=== PATIENT | male | born 1940 | race Caucasian/White ===

== ENCOUNTER → 2017-09-09 | Outpatient (CLI) | payer OTHER ==
[~2017-09-09] MED LIST: ALBUAER2 INH; ASPEC81 PO; CLS20 PO; FLM4 PO; FLNIN NAE; FLUT1INH INH; GATI1SOL2 TOP; KETOROLAC OPTH TOP; MCR/40125 PO; MELO15TA10 PO; OMEG10002 PO; OXGN; PRLSR20 PO; ROSU5TAB PO; SNG10 PO
--- NOTE | 2017-09-11 07:49 | PULMONARY FUNCTION TEST ---
SPIROMETRY: Moderate obstructive ventilatory disease. BRONCHODILATOR RESPONSE: No significant response. LUNG VOLUMES: Within normal limits. DIFFUSION CAPACITY: Mildly reduced but corrects off alveolar volume. INTERPRETATION: Mild obstructive ventilatory disease MTDD
== END | disposition home or self-care (01) ==
LOC: C.RC 11:16
PROVIDERS: ATTEND Internal Medicine Critical Care Medicine
DX: M41.9 Scoliosis, unspecified (principal)

== ENCOUNTER 2022-06-21 16:55 | Inpatient (IN) ==
--- NOTE | 2022-06-21 18:24 | XRay Report ---
SINGLE VIEW CHEST CLINICAL HISTORY: Cough and dyspnea FINDINGS: 2 AP, portable, upright chest radiographs are compared to study dated 10/23/2010 and correla pamela with chest CT dated 08/12/2018. The cardiomediastinal silhouette is unremarkable noting atheroscle rotic calcification of the thoracic aorta. Bibasilar opacities likely represent scarring/atelectasis. The lungs and pleural spaces are otherwise clear. No pneumothorax is seen. The skeletal structures a re osteopenic. There is severe thoracic scoliosis which significantly distorts the thoracic cage. The bony structures are grossly intact. IMPRESSION: Bibasilar opacities likely represent scarring/atelectasis. Clinical correlation will be r equired. ACT 112: Negative or not required by law. Electronically signed by: Epi Bautista M.D. 06/21/2022 6:23 PM
[2022-06-21 18:44] LABS: Influenza B virus by PCR Negative (Neg); RSV by PCR Negative (Neg); SARS CoV2 RNA(COVID-19) Ceph NEGATIVE (Negative)
[2022-06-21 18:48] LABS: Influenza A virus by PCR Positive (Neg)
[2022-06-21 18:51] LABS: Hematocrit (blood only) 37.8 % (40.1-51.0); Hemoglobin 12.9 g/dl (14.0-18.0); White Blood Count 9.36 K/ul (4.8-10.8)
[2022-06-21 19:18] LABS: Alanine Aminotransferase 28 U/L (7-52); Albumin Globulin Ratio 1.9 (0.9-2); Albumin Level 4.3 gm/dl (3.4-5.0); Alkaline Phosphatase 68 U/L (34-104); Anion Gap 6 (3-11); Aspartate Aminotransferase 37 U/L (13-39); BUN Creatinine Ratio 29.7 (10-20); Bilirubin,Total 0.8 mg/dl (0.2-1.0); Blood Urea Nitrogen 11 mg/dl (6-23); Calcium 8.6 mg/dl (8.5-10.1); Carbon Dioxide 27 mmol/L (21-32); Chloride 96 mmol/L (98-107); Est GFR (African American) 134.2 ml/min; Est GFR (Non-African American) 115.8 ml/min; Globulin 2.3 gm/dl (2.5-4.0); Glucose 121 mg/dl (70-99(Fasting)); Magnesium 1.9 mg/dl (1.7-2.4); Potassium 3.8 mmol/L (3.5-5.1); Sodium 129 mmol/L (136-145); Total Protein 6.6 gm/dl (6.0-8.3)
[2022-06-21 19:28] LABS: Basophils # (auto) 0.01 K/uL (0-0.2); Basophils % (auto) 0.1 %; Immature Granulocytes # (auto) 0.04 K/uL (0.00-0.02); Immature Granulocytes % (auto) 0.4 %; Lymphocytes # (auto) 0.28 K/uL (1.2-3.4); Mean Corpuscular Hemoglobin 33.5 pg (25.0-34.0); Mean Corpuscular Hgb Conc 34.1 g/dL (32.0-36.0); Mean Corpuscular Volume 98.2 fL (80.0-100.0); Mean Platelet Volume 9.7 fL (9.4-12.4); Monocytes # (auto) 0.24 K/uL (0.24-0.82); Monocytes % (auto) 2.6 %; Neutrophils # (auto) 8.79 K/uL (1.4-6.5); Neutrophils % (auto) 93.9 %; Platelet Count 98 K/uL (130-400); Platelet Estimate Decreased (Normal); RDW Standard Deviation 64.3 fL (36.4-46.3); Red Blood Count 3.85 M/uL (4.63-6.08)
[2022-06-21 20:14] LABS: INR 1.1 (0.9-1.1); Partial Thromboplastin Time 28.8 Seconds (21.0-31.0); Prothrombin Time 11.8 Seconds (9.0-12.0)
--- NOTE | 2022-06-21 21:15 | Emergency Department Note ---
Impression & Plan Influenza A, SOB (shortness of breath) ED Provider Note INFORMANT: Patient and ED PROVIDER(S): Uli Alvarado MD CHIEF COMPLAINT: Shortness of breath PLAN: Disposition: Admitted Condition: Good Outpatient prescription management: None Referral: None MEDICAL DECISION MAKING: Patient presented because of worsening shortness of breath. Testing was performed and he was found to have influenza. Patient has mild anemia on CBC and mild thrombocytopenia. His chemistry panel was unremarkable. Chest x-ray was negative for any focal infiltrate. He does have significant scoliosis and restrictive lung disease. He was treated with steroids and bronchodilator. Due to his age, illness, and restrictive lung issues he will need further management in the hospital. Consultation was made with hospital service. Patient was evaluated in the ER admitted for further management. Triage Nursing notes reviewed and agree them. Vital Signs: reviewed and remarkable for no significant abnormalities Viral syndrome differential diagnosis: Reactive airway disease, pneumonia, pneumothorax, COPD, CHF, infections, cardiac ischemia, pulmonary embolism, musculoskeletal, gastrointestinal, as well as other pathologies. Diagnostics interpreted by me: EC Lead ECG performed and revealed Normal sinus rhythm at 97, normal [place], QRS normal. No elevation or depression. No PACs or PVCs Cardiac Monitoring: Cardiac monitoring ordered by me: The patient was placed on continuous cardiac monitoring and observed. It revealed a normal sinus rhythm at 91 beats per minute without ectopy or evidence of dysrhythmia. Imaging studies: Chest x-ray as noted below HPI: The patient is a 82 year old male who presents to the Emergency Room with complaints of SOB. This started 3 days ago and is worsening. The patient also notes the following associated symptoms, flu like symptoms, cough ,fevers, congestion, weakness, scratchy throat. The patient has been prescribed prednisone and zithromax for relieving factors. Current pain is rated as 0/10. Pt denies LOC, headache, chills, diaphoresis, visual changes, neck pain, chest pain, nausea, vomiting, abdominal pain, back pain, melena, hematochezia, urinary symptoms, numbness, lymphadenopathy, rash, or other complaints. ROS: See above HPI for pertinent positives & negatives. A total of 10 systems reviewed and were otherwise negative. PAST MEDICAL HISTORY:See Below , restrictive lung disease PAST SURGICAL HISTORY:See Below, FAMILY HISTORY:See Below SOCIAL HISTORY:See Below, HOME MEDICATIONS:See Below ALLERGIES:See Below VITALS:See Below PHYSICAL EXAMINATION: GENERAL: Awake, alert, mildly ill appearing, no distress HEAD: Normocephalic, atraumatic. No edema. EYES: Normal conjunctiva. Sclera non-icteric. EARS: Right TM normal. Left TM normal. NOSE: Mild congestion. OROPHARYNX: Lips, tongue, and mucosa unremarkable. No erythema or exudate. NECK: Inspection normal. Non-tender. Supple. No nuchal rigidity. FROM. No adenopathy. Negative jolt accentuation test. RESPIRATORY: CTA bilaterally. No wheezes rales or rhonchi. Normal respiratory effort. CARDIAC: Borderline tachycardic rate. Normal rhythm. No murmurs. No rubs. GI: Soft, non distended. No tenderness to palpation. NEURO: Normal sensorium. Normal speech. SKIN: No rash or jaundice noted. Uli Alvarado MD Past Med/Surg History Medical History Severe scoliosis Social History Smoking Status: Former smoker Second Hand Exposure: Yes; Do You Dip or Chew Tobacco: No; Tobacco Cessation Education Requested by Patient: No Hx Alcohol Use: Yes Alcohol type: wine Hx Substance Use: No Preferred Language: Taiwanese Communication Ability: Effective Contract Management Specialist Required: No Beliefs That Will Affect Care: None Current Living Situation: Spouse Other Information That Helps Us Care for You: No Feels Safe at Home: Yes Safety Concerns: Feels Safe At This Time Assistive Devices: Cane, Glasses and Oxygen - at Night Allergies Allergies Allergy/AdvReac Type Severity Reaction Status Date / Time Gadolinium-Containing AdvReac Unknown Verified 06/22/22 00:04 [facility] Meds Home Medications Medication Instructions Recorded Confirmed Prednisone Taper 10 mg PO DIRECTED 06/22/22 06/22/22 albuterol sulfate 2.5 mg/3 mL 2.5 mg inhalation DIRECTED PRN 06/22/22 06/22/22 (0.083 %) solution for nebulization Shortness Of Breath Or Wheezing albuterol sulfate 90 mcg/actuation 2 puff inhalation Q4 PRN 06/22/22 06/22/22 aerosol inhaler .cough/wheezing amlodipine 5 mg tablet 2.5 mg PO QPM 06/22/22 06/22/22 aspirin 81 mg chewable tablet 81 mg PO DAILY 06/22/22 06/22/22 azithromycin 250 mg tablet 250 mg PO DAILY 06/22/22 06/22/22 dutasteride 0.5 mg capsule 0.5 mg PO DAILY 06/22/22 06/22/22 fluticasone furoate 100 1 inh inhalation DAILY 06/22/22 06/22/22 mcg-vilanterol 25 mcg/dose inhalation powder (Breo Ellipta) fluticasone propionate 50 2 spray intranasal DAILY 06/22/22 06/22/22 mcg/actuation nasal spray,suspension (Flonase Allergy Relief) hydrochlorothiazide 12.5 mg tablet 12.5 mg PO 3XWK 06/22/22 06/22/22 latanoprost 0.005 % eye drops 1 drp OPL HS 06/22/22 06/22/22 meloxicam 15 mg tablet 15 mg PO QPM 06/22/22 06/22/22 montelukast 10 mg tablet 10 mg PO PM 06/22/22 06/22/22 rosuvastatin 5 mg tablet 5 mg PO QPM 06/22/22 06/22/22 tadalafil 5 mg tablet 5 mg PO DAILY 06/22/22 06/22/22 telmisartan 40 mg tablet 40 mg PO DAILY 06/22/22 06/22/22 terazosin 2 mg capsule 2 mg PO HS 06/22/22 06/22/22 Results & Data (ED) Vital Signs Vital Signs - 24 hr 06/21/22 17:06 Temperature 37.2 C Temperature Source Temporal Artery Scan Pulse Rate 103 H Respiratory Rate 20 Respiratory Depth Normal Blood Pressure 144/79 H Blood Pressure Mean 100 Blood Pressure Position Sitting Pulse Oximetry 90 Oxygen Delivery Method Room Air Sepsis Recent Fever Within 48 Hours No Sepsis New/Unexplained Change in Mental Status No Sepsis Action Taken by Nursing No Action Required Laboratory Data Result diagrams: 06/22/22 05:37 06/22/22 05:37 Lab Results 06/21/22 06/21/22 06/21/22 Range/Units 17:10 18:30 18:30 WBC 9.36 (4.8-10.8) K/ul RBC 3.85 L (4.63-6.08) M/uL Hgb 12.9 L (14.0-18.0) g/dl Hct 37.8 L (40.1-51.0) % MCV 98.2 (80.0-100.0) fL MCH 33.5 (25.0-34.0) pg MCHC 34.1 (32.0-36.0) g/dL RDW Std Deviation 64.3 H (36.4-46.3) fL RDW Coeff of Blas 18.0 H (11.5-14.5) % Plt Count 98 L (130-400) K/uL MPV 9.7 (9.4-12.4) fL Immature Gran % (Auto) 0.4 % Neut % (Auto) 93.9 % Lymph % (Auto) 3.0 % [place] % (Auto) 2.6 % Eos % (Auto) 0.0 % Baso % (Auto) 0.1 % Neut # (Auto) 8.79 H (1.4-6.5) K/uL Lymph # (Auto) 0.28 L (1.2-3.4) K/uL [place] # (Auto) 0.24 (0.24-0.82) K/uL Eos # (Auto) 0.00 (0-0.50) K/uL Baso # (Auto) 0.01 (0-0.2) K/uL Immature Gran # (Auto) 0.04 H (0.00-0.02) K/uL Hyposegmented Neuts 1+ Platelet Estimate Decreased L (Normal) PT Cancelled INR Cancelled APTT Cancelled PTT Ratio Cancelled Sodium (136-145) mmol/L Potassium (3.5-5.1) mmol/L Chloride (98-107) mmol/L Carbon Dioxide (21-32) mmol/L Anion Gap (3-11) BUN (6-23) mg/dl Creatinine (0.6-1.4) mg/dl Est Cr Clr Drug Dosing Est GFR ( Amer) ml/min Est GFR (Non-Af Amer) ml/min BUN/Creatinine Ratio (10-20) Glucose (70-99(Fasting)) mg/dl Calcium (8.5-10.1) mg/dl Magnesium (1.7-2.4) mg/dl Total Bilirubin (0.2-1.0) mg/dl AST (13-39) U/L ALT (7-52) U/L Alkaline Phosphatase (34-104) U/L Total Protein (6.0-8.3) gm/dl Albumin (3.4-5.0) gm/dl Globulin (2.5-4.0) gm/dl Albumin/Globulin Ratio (0.9-2) SARS-CoV-2 (PCR) NEGATIVE (Negative) Influenza Type A (PCR) Positive A* (Neg) Influenza Type B (PCR) Negative (Neg) RSV (RT-PCR) Negative (Neg) 06/21/22 06/21/22 Range/Units 18:30 19:47 WBC (4.8-10.8) K/ul RBC (4.63-6.08) M/uL Hgb (14.0-18.0) g/dl Hct (40.1-51.0) % MCV (80.0-100.0) fL MCH (25.0-34.0) pg MCHC (32.0-36.0) g/dL RDW Std Deviation (36.4-46.3) fL RDW Coeff of Blas (11.5-14.5) % Plt Count (130-400) K/uL MPV (9.4-12.4) fL Immature Gran % (Auto) % Neut % (Auto) % Lymph % (Auto) % [place] % (Auto) % Eos % (Auto) % Baso % (Auto) % Neut # (Auto) (1.4-6.5) K/uL Lymph # (Auto) (1.2-3.4) K/uL [place] # (Auto) (0.24-0.82) K/uL Eos # (Auto) (0-0.50) K/uL Baso # (Auto) (0-0.2) K/uL Immature Gran # (Auto) (0.00-0.02) K/uL Hyposegmented Neuts Platelet Estimate (Normal) PT 11.8 INR 1.1 APTT 28.8 PTT Ratio 1.0 Sodium 129 L (136-145) mmol/L Potassium 3.8 (3.5-5.1) mmol/L Chloride 96 L (98-107) mmol/L Carbon Dioxide 27 (21-32) mmol/L Anion Gap 6 (3-11) BUN 11 (6-23) mg/dl Creatinine 0.37 L (0.6-1.4) mg/dl Est Cr Clr Drug Dosing Not Reportable Est GFR ( Amer) 134.2 ml/min Est GFR (Non-Af Amer) 115.8 ml/min BUN/Creatinine Ratio 29.7 H (10-20) Glucose 121 H (70-99(Fasting)) mg/dl Calcium 8.6 (8.5-10.1) mg/dl Magnesium 1.9 (1.7-2.4) mg/dl Total Bilirubin 0.8 (0.2-1.0) mg/dl AST 37 (13-39) U/L ALT 28 (7-52) U/L Alkaline Phosphatase 68 (34-104) U/L Total Protein 6.6 (6.0-8.3) gm/dl Albumin 4.3 (3.4-5.0) gm/dl Globulin 2.3 L (2.5-4.0) gm/dl Albumin/Globulin Ratio 1.9 (0.9-2) SARS-CoV-2 (PCR) (Negative) Influenza Type A (PCR) (Neg) Influenza Type B (PCR) (Neg) RSV (RT-PCR) (Neg) Administered Medications Acetaminophen (Acetaminophen 325 Mg Tab) 650 mg PO Q4H PRN PRN Reason: Pain or Fever Stop: 07/22/22 00:00 Last Admin: 06/22/22 20:39 Dose: 650 mg Documented By: DOROTHY Albuterol (Albut/Ipratrop 3mg/0.5mg Neb 3 Ml Vial) 3 ml NEB QIDR [facility]; Protocol Stop: 07/22/22 06:59 Last Admin: 06/22/22 19:31 Dose: 3 ml Documented By: Admin: 06/22/22 15:38 Dose: 3 ml Documented By: Admin: 06/22/22 11:20 Dose: 3 ml Documented By: Admin: 06/22/22 07:37 Dose: 3 ml Documented By: CHERYL Amlodipine Besylate (Amlodipine Besylate 5 Mg Tab) 2.5 mg PO DAILY [facility] Stop: 07/22/22 08:59 Last Admin: 06/22/22 08:58 Dose: 2.5 mg Documented By: JASKARAN Aspirin (Aspirin 81 Mg Ectab) 81 mg PO DAILY [facility] Stop: 07/22/22 08:59 Last Admin: 06/22/22 08:59 Dose: 81 mg Documented By: JASKARAN Azithromycin (Azithromycin 250 Mg Tab) 250 mg PO QAM [facility] Stop: 06/25/22 11:59 Last Admin: 06/22/22 09:00 Dose: 250 mg Documented By: JASKARAN Enoxaparin Sodium (Enoxaparin Inj 40 Mg/0.4 Ml Syr) 40 mg SQ Q24H [facility] Stop: 07/22/22 08:59 Last Admin: 06/22/22 09:01 Dose: Not Given Documented By: JASKARAN Fluticasone/Vilanterol (Fluticasone/Vilanterol 100/25mcg 14 Puffs/Inhaler) 1 puffs INH DAILY [facility] Stop: 07/22/22 08:59 Last Admin: 06/22/22 08:58 Dose: 1 puffs Documented By: JASKARAN Dextrose/Sodium Chloride (D5w And Nss) 1,000 mls @ 80 mls/hr IV .[id number] [facility] Stop: 06/23/22 00:59 Last Admin: 06/22/22 13:07 Dose: 80 mls/hr Documented By: Infusion: 06/22/22 13:07 Dose: 80 mls/hr Documented By: Admin: 06/22/22 00:43 Dose: 80 mls/hr Documented By: DOROTHY Methylprednisolone 40 mg/ (Syringe) 0.64 mls @ 1.5 mls/min IV Q8H [facility] Stop: 07/22/22 05:59 Last Admin: 06/22/22 20:46 Dose: 1.5 mls/min Documented By: Admin: 06/22/22 13:08 Dose: 1.5 mls/min Documented By: Admin: 06/22/22 05:14 Dose: 1.5 mls/min Documented By: DOROTHY Latanoprost (Latanoprost 0.005% Op Soln 2.5 Ml Btl) 1 drops OP DAILY [facility] Stop: 07/22/22 08:59 Last Admin: 06/22/22 09:01 Dose: 1 drops Documented By: JASKARAN Miscellaneous (Dutasteride 0.5 Mg - Order Awaiting Action) 1 each N/A QS [facility] Stop: 07/22/22 07:59 Last Admin: 06/22/22 16:53 Dose: Not Given Documented By: Admin: 06/22/22 08:57 Dose: Not Given Documented By: JASKARAN Montelukast Sodium (Montelukast Sodium 10 Mg Tablet) 10 mg PO PM [facility] Stop: 07/22/22 20:59 Last Admin: 06/22/22 20:43 Dose: 10 mg Documented By: DOROTHY Oseltamivir Phosphate (Oseltamivir Phosphate 75 Mg Cap) 75 mg PO BID [facility]; Protocol Stop: 06/27/22 08:59 Last Admin: 06/22/22 20:42 Dose: 75 mg Documented By: Admin: 06/22/22 09:00 Dose: 75 mg Documented By: JASKARAN Rosuvastatin Calcium (Rosuvastatin Calcium 5 Mg Tab) 5 mg PO DAILY [facility] Stop: 07/22/22 08:59 Last Admin: 06/22/22 09:00 Dose: 5 mg Documented By: JASKARAN Telmisartan (Telmisartan 40 Mg Tab) 40 mg PO DAILY [facility] Stop: 07/22/22 08:59 Last Admin: 06/22/22 09:00 Dose: 40 mg Documented By: JASKARAN Terazosin HCl (Terazosin Hcl 1 Mg Cap) 2 mg PO DAILY [facility] Stop: 07/22/22 08:59 Last Admin: 06/22/22 08:59 Dose: 2 mg Documented By: JASKARAN Discontinued Medications Albuterol (Albut/Ipratrop 3mg/0.5mg Neb 3 Ml Vial) 3 ml NEB NOW STA; Protocol Stop: 06/21/22 21:18 Last Admin: 06/21/22 21:23 Dose: 3 ml Documented By: MICHAEL Methylprednisolone (Methylprednisolone 125 Mg/2 Ml Vial) 125 mg IV NOW STA Stop: 06/21/22 21:18 Last Admin: 06/21/22 21:23 Dose: 125 mg Documented By: MICHAEL Miscellaneous (Patient's Height &/Or Weight Needed) 1 each N/A Q2H [facility] Stop: 07/22/22 00:14 Last Admin: 06/22/22 00:27 Dose: 1 each Documented By: DOROTHY Oseltamivir Phosphate (Oseltamivir Phosphate 75 Mg Cap) 75 mg PO NOW STA; Protocol Stop: 06/21/22 21:18 Last Admin: 06/21/22 21:23 Dose: 75 mg Documented By: KT Imaging Data Radiologist's Impression: Chest X-Ray 06/21/22 17:14 SINGLE VIEW CHEST CLINICAL HISTORY: Cough and dyspnea FINDINGS: 2 AP, portable, upright chest radiographs are compared to study dated 10/23/2010 and correlated with chest CT dated 08/12/2018. The cardiomediastinal silhouette is unremarkable noting atherosclerotic calcification of the thoracic aorta. Bibasilar opacities likely represent scarring/atelectasis. The lungs and pleural spaces are otherwise clear. No pneumothorax is seen. The skeletal struct ures are osteopenic. There is severe thoracic scoliosis which significantly distorts the thoracic cage. The bony structures are grossly intact. IMPRESSION: Bibasilar opacities likely represent scarring/atelectasis. Clinical correlation will be required. ACT 112: Negative or not required by law. Electronically signed by: Epi Bautista M.D. 06/21/2022 6:23 PM Discharge Plan Visit Data Chief Complaint: Shortness of Breath/Dyspnea Stated Complaint: SHORTNESS OF BREATH ED Provider: Uli Alvarado Discharge Problem: Influenza A, SOB (shortness of breath) Patient Disposition: Admitted As Inpatient Discharge Instructions Interventions: ED Discharge Assessment Last Done: 06/21/22 23:33
[2022-06-21] MEDS ORDERED: ALBUT/IPRATROP 3MG/0.5MG NEB 3 ML VIAL NEB STA (21:17)
[2022-06-21] MEDS ORDERED: methylPREDNISolone 125 MG/2 ML VIAL IV STA (21:17)
[2022-06-21] MEDS ORDERED: OSELTAMIVIR PHOSPHATE 75 MG CAP PO STA (21:17)
[2022-06-22] MEDS ORDERED: ONDANSETRON INJ 2 MG/ML 2 ML VIAL IV PRN
[2022-06-22] MEDS ORDERED: FLUTICASONE PROPIONATE NA SPR 16 GM BTL NAE PRN
[2022-06-22] MEDS ORDERED: NITROGLYCERIN SL 0.4 MG/TAB TAB SL PRN
[2022-06-22] MEDS ORDERED: ACETAMINOPHEN 325 MG TAB PO PRN
[2022-06-22] MEDS ORDERED: POLYETHYLENE (MIRALAX) 17 GM PACK PO PRN
[2022-06-22] MEDS ORDERED: ALBUT/IPRATROP 3MG/0.5MG NEB 3 ML VIAL NEB PRN
[2022-06-22] MEDS ORDERED: ALBUTEROL HFA 8 GM INHALER INH PRN (00:09)
[2022-06-22] MEDS ORDERED: Patient's HEIGHT &/or WEIGHT Needed SCH (00:15)
[2022-06-22] MEDS: D5W AND NSS 1,000 ML IV SCH ×2 (00:43→13:07)
--- NOTE | 2022-06-22 02:04 | History and Physical Report ---
DATE OF ADMISSION: 06/21/2022. CHIEF COMPLAINT: Shortness of breath. 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 He just took one dose today, but as was not getting better, came here, found to have flu positive. The patient is flu vaccinated. Currently, saturating okay on nasal cannula, resting comfortably. Denies any headache. No blurred visions, no earache. Has mild runny nose, mild sore throat, coughing, has some phlegm. Denies any chest pain, no nausea, no vomiting, no abdominal pain. Normal bowel and bladder movements. Did not micturate much today. No swelling in the legs. ALLERGIES: No known drug allergies. PAST MEDICAL HISTORY: As mentioned above. PAST SURGICAL HISTORY: Colonoscopy, biopsy, humerus fracture surgery, spinal fusion surgery. MEDICATIONS: The patient is on albuterol 2 puffs p.r.n., amlodipine 5 mg p.o. daily, aspirin 81 mg p.o. daily, dutasteride 0.5 mg p.o. daily, Breo Ellipta one inhalation daily, Flonase 2 sprays into each nostril daily, hydrochlorothiazide 12.5 mg p.o. 3 times daily, latanoprost eyedrops daily, meloxicam 15 mg p.o. daily, montelukast 10 mg p.o. daily, lovastatin 5 mg p.o. daily, telmisartan 40 mg p.o. daily, terazosin 2 mg p.o. daily, oxygen 2 liters at bedtime. FAMILY HISTORY: Significant for father had lung cancer, brother has colon cancer, bypass surgery, Down syndrome; mother had throat cancer. SOCIAL HISTORY: , lives with his . Quit smoking in 1968, smoked 1 pack a day for 3 years. Alcohol, 1 or 2 glasses of wine daily. No drug use. REVIEW OF SYSTEMS: As per HPI. Rest of review of systems is negative. PHYSICAL EXAMINATION: GENERAL: The patient is of moderate build, not in acute distress. VITAL SIGNS: Temperature 37.2, pulse 108, respiratory rate 17, blood pressure 144/79, oxygen 96% on room air. HEENT: Pupils equal, round and reactive to light. Oral mucosa moist. NECK: No JVD, no neck masses. CARDIOVASCULAR: S1 and S2 heard. Regular rate and rhythm. No murmur, no gallop. RESPIRATORY: Normal AP diameter. No accessory muscle use. Bilateral rhonchi heard. ABDOMEN: Soft, bowel sounds present, nontender, no distention. CENTRAL NERVOUS SYSTEM: Cranial nerves II through XII grossly intact, nonfocal. EXTREMITIES: No edema, no erythema. LABORATORY DATA: WBC 9.3, hemoglobin 12.9, hematocrit 37.8, platelets 98. PT 11.8, INR 1.1, APTT 28.8. Sodium 129, potassium 3.8, chloride 96, bicarbonate 27, BUN 11, creatinine 0.3, serum glucose 121, calcium 8.6, magnesium 1.9, total bilirubin 0.8, AST 37, ALT 28, alkaline phosphatase 68. SARS-CoV-2 PCR negative. RSV PCR negative. Influenza A PCR positive. Influenza B PCR negative. IMAGING DATA: Chest x-ray, bibasilar opacities, likely represent scarring, atelectasis. EKG: Normal sinus rhythm at a rate of 97, no significant change was found. ASSESSMENT AND PLAN: An 82-year-old male with history of asthma, history of restrictive lung disease and possible interstitial lung disease presents with shortness of breath. 1. SOB, influenza A positive, asthma/interstitial lung disease exacerbation. Starting on IV Solu-Medrol, complete azithromycin course and Tamiflu. Nebs around the clock and p.r.n. Continue home inhalers. Closely monitor in the tele floor. 2. Hyponatremia. Getting gentle fluids. Sodium of 129. Follow repeat labs in the a.m. 3. Thrombocytopenia. Platelets of 98, possibly from ongoing infection. We will follow the repeat labs. 4. History of hypertension. Continue his home medications. Follow the blood pressure. 5. History of benign prostatic hypertrophy. Continue home medications. Monitor for any urinary retention. 6. Nocturnal hypoxemia. Continue oxygen. 7. History of postpolio syndrome. 8. Deep venous thrombosis. Lovenox. Monitor the platelets. DISPOSITION: Closely monitor in the tele floor. Level 1 full code. PT/OT prior to discharge. Social service to help with discharge planning. Job ID: [id number] [facility]ENTERCharis
[2022-06-22] MEDS: methylPREDNISolone 40 MG in SYRINGE 0 ML IV SCH ×3 (05:14→20:46)
[2022-06-22 06:25] LABS: Hematocrit (blood only) 35.5 % (40.1-51.0); Hemoglobin 12.3 g/dl (14.0-18.0); Mean Corpuscular Hemoglobin 33.3 pg (25.0-34.0); Mean Corpuscular Hgb Conc 34.6 g/dL (32.0-36.0); Mean Corpuscular Volume 96.2 fL (80.0-100.0); Mean Platelet Volume 9.6 fL (9.4-12.4); Platelet Count 96 K/uL (130-400); RDW Coefficient of Variation 17.6 % (11.5-14.5); RDW Standard Deviation 62.3 fL (36.4-46.3); Red Blood Count 3.69 M/uL (4.63-6.08); White Blood Count 7.67 K/ul (4.8-10.8)
[2022-06-22 06:26] LABS: Immature Granulocytes # (auto) 0.02 K/uL (0.00-0.02); Immature Granulocytes % (auto) 0.3 %; Lymphocytes # (auto) 0.27 K/uL (1.2-3.4); Lymphocytes % (auto) 3.5 %; Monocytes # (auto) 0.15 K/uL (0.24-0.82); Neutrophils # (auto) 7.23 K/uL (1.4-6.5); Neutrophils % (auto) 94.2 %
[2022-06-22 06:29] LABS: Troponin I High Sensitivity 4.9 pg/ml (0-20)
[2022-06-22 06:31] LABS: BUN Creatinine Ratio 22.9 (10-20); Calcium 8.4 mg/dl (8.5-10.1); Creatinine Clr Calc Pharmacy 153.1 ml/min; Est GFR (African American) 137.4 ml/min; Est GFR (Non-African American) 118.5 ml/min; Magnesium 1.9 mg/dl (1.7-2.4); Potassium 3.8 mmol/L (3.5-5.1)
[2022-06-22] MEDS: ALBUT/IPRATROP 3MG/0.5MG NEB 3 ML VIAL NEB SCH ×4 (07:37→19:31)
[2022-06-22] MEDS: FLUTICASONE/VILANTEROL 100/25MCG 14 PUFFS/INHALER INH SCH (08:58)
[2022-06-22] MEDS: amLODIPine BESYLATE 5 MG TAB PO SCH (08:58)
[2022-06-22] MEDS: ASPIRIN 81 MG ECTAB PO SCH (08:59)
[2022-06-22] MEDS: TERAZOSIN HCL 1 MG CAP PO SCH (08:59)
[2022-06-22] MEDS: ROSUVASTATIN CALCIUM 5 MG TAB PO SCH (09:00)
[2022-06-22] MEDS: TELMISARTAN 40 MG TAB PO SCH (09:00)
[2022-06-22] MEDS ORDERED: LATANOPROST 0.005% OP SOLN 2.5 ML BTL OP SCH (09:00)
[2022-06-22] MEDS: AZITHROMYCIN 250 MG TAB PO SCH (09:00)
[2022-06-22] MEDS: OSELTAMIVIR PHOSPHATE 75 MG CAP PO SCH ×2 (09:00→20:42)
[2022-06-22] MEDS ORDERED: amLODIPine BESYLATE 5 MG TAB PO SCH (09:00)
[2022-06-22] MEDS: ENOXAPARIN INJ 40 MG/0.4 ML SYR SQ SCH (09:01)
--- NOTE | 2022-06-22 14:54 | Hospitalist Progress Note ---
Date of Service June 22, 2022 Assessment & Plan (1) Exacerbation of asthma: Plan: Increasing shortness of breath with cough Influenza A virus infection Exacerbation secondary to virus infection Has been on a steroid and nebulized bronchodilator and Tamiflu Clinically much better Has been on azithromycin for possible bacterial infection Will get to a step O2 saturation tomorrow prior to discharge (2) SOB (shortness of breath): Plan: As above (3) Influenza A: Plan: Isolation and has been on Tamiflu (4) COPD (chronic obstructive pulmonary disease) with chronic bronchitis: Plan: Has history of COPD/asthma and 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 Stone at [facility] Will have an outpatient appointment on discharge (5) Kyphoscoliosis: (6) Restrictive ventilatory defect: (7) BPH (benign prostatic hyperplasia): Plan: No acute symptoms (8) HTN (hypertension): Plan: Blood pressure is controlled Plan DVT prophylaxis Subcu Lovenox-he has been refusing CODE STATUS Full Admission and Anticipated Discharge Date Admission Date: June 21, 2022 Subjective 06/22/2022 The patient was seen and examined in telemetry unit He has been feeling a lot better since admission Has minimal shortness of breath at rest and with exertion Has significant thoracic kyphoscoliosis which is making his symptoms worse Review of Systems Review of Systems: All systems reviewed and are unremarkable except as noted below Respiratory: Minimal wheezing at rest and has been communicating normally Physical Exam Constitutional: Sitting on a chair without any acute distress Eyes: PERRL, conjunctivae normal, anicteric sclerae ENMT: external ear and nose normal, oropharynx normal Neck: trachea midline, no thyromegaly Respiratory: + respiratory distress (Minimal distress at rest) Auscultation: + diminished lung sounds and + wheezes (Bilateral wheezing) Cardiovascular: Rate/Rhythm: regular rate, regular rhythm and + tachycardic Heart Sounds: normal S1 and normal S2; no murmur Extremities: no edema Gastrointestinal (Abdomen): Inspection/Auscultation: normal bowel sounds; abdomen not distended Percussion/Palpation: abdomen soft; abdomen nontender Musculoskeletal: No acute arthritis involving any joint Neurologic: Alert, awake and oriented x3. No focal sensory or no motor deficit appreciated Psychiatric: A+Ox3, euthymic affect Lymphatic: no cervical or axillary lymphadenopathy Results & Data Results & Data ([facility]) Vital Signs (Past 12 Hours) Vital Signs Temp Pulse Pulse Resp BP Pulse Ox O2 Del Method 06/22/22 08:52 Room Air 06/22/22 11:30 36.7 C 102 H 20 120/71 Room Air, Other 06/22/22 11:20 107 H 18 92 Nasal Cannula 06/22/22 08:00 36.6 C 101 H 18 165/91 H 99 Room Air, Other 06/22/22 06:15 98 H 06/22/22 07:38 100 H 20 86 L Room Air 06/22/22 02:56 36.5 C 93 H 16 164/89 H 94 Nasal Cannula O2 Flow Rate 06/22/22 08:52 06/22/22 11:30 06/22/22 11:20 2 06/22/22 08:00 06/22/22 06:15 06/22/22 07:38 06/22/22 02:56 2.0 Laboratory Results Short CBC 06/21/22 06/22/22 Range/Units 18:30 05:37 WBC 9.36 7.67 (4.8-10.8) K/ul Hgb 12.9 L 12.3 L (14.0-18.0) g/dl Hct 37.8 L 35.5 L (40.1-51.0) % Plt Count 98 L 96 L (130-400) K/uL BMP 06/21/22 06/22/22 18:30 05:37 Sodium 129 L 133 L Potassium 3.8 3.8 Chloride 96 L 98 Carbon Dioxide 27 31 BUN 11 8 Creatinine 0.37 L 0.35 L Glucose 121 H 136 H Calcium 8.6 8.4 L Liver Function 06/21/22 Range/Units 18:30 Total Bilirubin 0.8 (0.2-1.0) mg/dl AST 37 (13-39) U/L ALT 28 (7-52) U/L Alkaline Phosphatase 68 (34-104) U/L Albumin 4.3 (3.4-5.0) gm/dl Medications Administered Current Inpatient Medications Acetaminophen (Acetaminophen 325 Mg Tab) 650 mg PO Q4H PRN PRN Reason: Pain or Fever Stop: 07/22/22 00:00 Albuterol (Albuterol Hfa 8 Gm Inhaler) 1 puffs INH Q4H PRN PRN Reason: Shortness Of Breath Or Wheezin Stop: 07/22/22 00:08 Albuterol (Albut/Ipratrop 3mg/0.5mg Neb 3 Ml Vial) 3 ml NEB QIDR [facility]EL; Protocol Stop: 07/22/22 06:59 Last Admin: 06/22/22 11:20 Dose: 3 ml Albuterol (Albut/Ipratrop 3mg/0.5mg Neb 3 Ml Vial) 3 ml NEB Q4R PRN; Protocol PRN Reason: Shortness Of Breath Or Wheezing Stop: 07/22/22 00:00 Amlodipine Besylate (Amlodipine Besylate 5 Mg Tab) 2.5 mg PO DAILY [facility] Stop: 07/22/22 08:59 Last Admin: 06/22/22 08:58 Dose: 2.5 mg Aspirin (Aspirin 81 Mg Ectab) 81 mg PO DAILY [facility] Stop: 07/22/22 08:59 Last Admin: 06/22/22 08:59 Dose: 81 mg Azithromycin (Azithromycin 250 Mg Tab) 250 mg PO QAM [facility] Stop: 06/25/22 11:59 Last Admin: 06/22/22 09:00 Dose: 250 mg Enoxaparin Sodium (Enoxaparin Inj 40 Mg/0.4 Ml Syr) 40 mg SQ Q24H [facility] Stop: 07/22/22 08:59 Last Admin: 06/22/22 09:01 Dose: Not Given Fluticasone Propionate (Fluticasone Propionate Na Spr 16 Gm Btl) 2 sprays SUSHANT DAILY PRN PRN Reason: ALLERGIES Stop: 07/22/22 00:00 Fluticasone/Vilanterol (Fluticasone/Vilanterol 100/25mcg 14 Puffs/Inhaler) 1 puffs INH DAILY [facility] Stop: 07/22/22 08:59 Last Admin: 06/22/22 08:58 Dose: 1 puffs Dextrose/Sodium Chloride (D5w And Nss) 1,000 mls @ 80 mls/hr IV .[id number] [facility] Stop: 06/23/22 00:59 Last Admin: 06/22/22 13:07 Dose: 80 mls/hr Methylprednisolone 40 mg/ (Syringe) 0.64 mls @ 1.5 mls/min IV Q8H [facility] Stop: 07/22/22 05:59 Last Admin: 06/22/22 13:08 Dose: 1.5 mls/min Latanoprost (Latanoprost 0.005% Op Soln 2.5 Ml Btl) 1 drops OP DAILY [facility] Stop: 07/22/22 08:59 Last Admin: 06/22/22 09:01 Dose: 1 drops Miscellaneous (Dutasteride 0.5 Mg - Order Awaiting Action) 1 each N/A QS [facility] Stop: 07/22/22 07:59 Last Admin: 06/22/22 08:57 Dose: Not Given Montelukast Sodium (Montelukast Sodium 10 Mg Tablet) 10 mg PO PM [facility] Stop: 07/22/22 20:59 Nitroglycerin (Nitroglycerin Sl 0.4 Mg/Tab Tab) 0.4 mg SL UD PRN PRN Reason: Chest Pain Stop: 07/22/22 00:00 Ondansetron HCl (Ondansetron Inj 2 Mg/Ml 2 Ml Vial) 4 mg IV Q6H PRN PRN Reason: Nausea Stop: 07/22/22 00:00 Oseltamivir Phosphate (Oseltamivir Phosphate 75 Mg Cap) 75 mg PO BID [facility]; Protocol Stop: 06/27/22 08:59 Last Admin: 06/22/22 09:00 Dose: 75 mg Polyethylene Glycol (Polyethylene (Miralax) 17 Gm Pack) 17 gm PO DAILY PRN PRN Reason: Constipation Stop: 07/22/22 00:00 Rosuvastatin Calcium (Rosuvastatin Calcium 5 Mg Tab) 5 mg PO DAILY [facility] Stop: 07/22/22 08:59 Last Admin: 06/22/22 09:00 Dose: 5 mg Telmisartan (Telmisartan 40 Mg Tab) 40 mg PO DAILY [facility] Stop: 07/22/22 08:59 Last Admin: 06/22/22 09:00 Dose: 40 mg Terazosin HCl (Terazosin Hcl 1 Mg Cap) 2 mg PO DAILY [facility] Stop: 07/22/22 08:59 Last Admin: 06/22/22 08:59 Dose: 2 mg
[2022-06-22] MEDS ORDERED: MONTELUKAST SODIUM 10 MG TABLET PO SCH (21:00)
[2022-06-23] MEDS ORDERED: LATANOPROST 0.005% OP SOLN 2.5 ML BTL OP SCH (01:15)
[2022-06-23] MEDS: methylPREDNISolone 40 MG in SYRINGE 0 ML IV SCH (06:09)
[2022-06-23] MEDS: ALBUT/IPRATROP 3MG/0.5MG NEB 3 ML VIAL NEB SCH ×2 (07:19→10:47)
[2022-06-23] MEDS: TELMISARTAN 40 MG TAB PO SCH (08:45)
[2022-06-23] MEDS: ROSUVASTATIN CALCIUM 5 MG TAB PO SCH (08:46)
[2022-06-23] MEDS: amLODIPine BESYLATE 5 MG TAB PO SCH (08:46)
[2022-06-23] MEDS: TERAZOSIN HCL 1 MG CAP PO SCH (08:46)
[2022-06-23] MEDS: AZITHROMYCIN 250 MG TAB PO SCH (08:46)
[2022-06-23] MEDS: ASPIRIN 81 MG ECTAB PO SCH (08:46)
[2022-06-23] MEDS: OSELTAMIVIR PHOSPHATE 75 MG CAP PO SCH (08:46)
[2022-06-23] MEDS: FLUTICASONE/VILANTEROL 100/25MCG 14 PUFFS/INHALER INH SCH (08:47)
[2022-06-23] MEDS: ENOXAPARIN INJ 40 MG/0.4 ML SYR SQ SCH (08:56)
[2022-06-23] MEDS ORDERED: amLODIPine BESYLATE 5 MG TAB PO ONE (09:04)
--- NOTE | 2022-06-23 10:39 | Hospitalist Progress Note ---
Date of Service June 23, 2022 Assessment & Plan (1) Exacerbation of asthma: Plan: Increasing shortness of breath with cough Influenza A virus infection Exacerbation secondary to virus infection Has been on a steroid and nebulized bronchodilator and Tamiflu Clinically much better Has been on azithromycin for possible bacterial infection Will get to a step O2 saturation tomorrow prior to discharge Clinically much better and has been saturating on room air Will get 2 step O2 saturation test prior to discharge this afternoon (2) SOB (shortness of breath): Plan: As above (3) Influenza A: Plan: Isolation and has been on Tamiflu (4) COPD (chronic obstructive pulmonary disease) with chronic bronchitis: Plan: Has history of COPD/asthma and restrictive pulmonary disease secondary to kyphoscoliosis Under care of Dr. Stone at [facility] Will have an outpatient appointment on discharge Will need outpatient pulmonary appointment (5) Kyphoscoliosis: (6) Restrictive ventilatory defect: (7) BPH (benign prostatic hyperplasia): Plan: No acute symptoms (8) HTN (hypertension): Plan: Blood pressure is elevated as of this Extra dose of amlodipine 2.5 mg given Discussed with the patient and he will continue with his usual dose of amlodipine on discharge as his blood pressure has been running normal at home Plan DVT prophylaxis Subcu Lovenox-he has been refusing CODE STATUS Full Admission and Anticipated Discharge Date Admission Date: June 21, 2022 Subjective 06/22/2022 The patient was seen and examined in telemetry unit He has been feeling a lot better since admission Has minimal shortness of breath at rest and with exertion Has significant thoracic kyphoscoliosis which is making his symptoms worse 06/23/2022 The patient was seen and examined in telemetry unit He has been feeling much better and wants to go home today Has had minimal cough but denies any shortness of breath at rest Has been saturating normally on room air Review of Systems Review of Systems: All systems reviewed and are unremarkable except as noted below Respiratory: Minimal wheezing at rest and has been communicating normally Physical Exam Physical Exam: Sitting on a chair without any acute distress Constitutional: average body habitus; not ill appearing Eyes: PERRL, conjunctivae normal, anicteric sclerae ENMT: external ear and nose normal, oropharynx normal Neck: trachea midline, no thyromegaly Respiratory: + respiratory distress (Minimal distress at rest) Auscultation: + diminished lung sounds and + wheezes (Bilateral wheezing) Has significant kyphoscoliosis Cardiovascular: Rate/Rhythm: regular rate, regular rhythm and + tachycardic Heart Sounds: normal S1 and normal S2; no murmur Extremities: no edema Gastrointestinal (Abdomen): Inspection/Auscultation: normal bowel sounds; abdomen not distended Percussion/Palpation: abdomen soft; abdomen nontender Musculoskeletal: No acute arthritis involving any joint Psychiatric: A+Ox3, euthymic affect Lymphatic: no cervical or axillary lymphadenopathy Results & Data Results & Data ([facility]) Vital Signs (Past 12 Hours) Vital Signs Temp Pulse Pulse Resp BP BP Pulse Ox 06/23/22 10:03 06/23/22 07:38 36.6 C 105 H 18 173/88 H 94 06/23/22 06:03 115 H 06/23/22 07:22 87 18 94 06/23/22 02:57 36.9 C 97 H 18 172/90 H 93 06/23/22 00:08 85 06/22/22 23:54 36.8 C 95 H 18 168/84 H 93 O2 Del Method O2 Flow Rate 06/23/22 10:03 Room Air 06/23/22 07:38 Nasal Cannula 2 06/23/22 06:03 06/23/22 07:22 Nasal Cannula 06/23/22 02:57 Nasal Cannula 2 06/23/22 00:08 06/22/22 23:54 Nasal Cannula 2 Medications Administered Current Inpatient Medications Acetaminophen (Acetaminophen 325 Mg Tab) 650 mg PO Q4H PRN PRN Reason: Pain or Fever Stop: 07/22/22 00:00 Last Admin: 06/22/22 20:39 Dose: 650 mg Albuterol (Albuterol Hfa 8 Gm Inhaler) 1 puffs INH Q4H PRN PRN Reason: Shortness Of Breath Or Wheezin Stop: 07/22/22 00:08 Albuterol (Albut/Ipratrop 3mg/0.5mg Neb 3 Ml Vial) 3 ml NEB QIDR [facility]; Protocol Stop: 07/22/22 06:59 Last Admin: 06/23/22 07:19 Dose: 3 ml Albuterol (Albut/Ipratrop 3mg/0.5mg Neb 3 Ml Vial) 3 ml NEB Q4R PRN; Protocol PRN Reason: Shortness Of Breath Or Wheezing Stop: 07/22/22 00:00 Amlodipine Besylate (Amlodipine Besylate 5 Mg Tab) 5 mg PO DAILY [facility] Stop: 07/24/22 08:59 Aspirin (Aspirin 81 Mg Ectab) 81 mg PO DAILY [facility] Stop: 07/22/22 08:59 Last Admin: 06/23/22 08:46 Dose: 81 mg Azithromycin (Azithromycin 250 Mg Tab) 250 mg PO QAM [facility] Stop: 06/25/22 11:59 Last Admin: 06/23/22 08:46 Dose: 250 mg Enoxaparin Sodium (Enoxaparin Inj 40 Mg/0.4 Ml Syr) 40 mg SQ Q24H [facility] Stop: 07/22/22 08:59 Last Admin: 06/23/22 08:56 Dose: Not Given Fluticasone Propionate (Fluticasone Propionate Na Spr 16 Gm Btl) 2 sprays SUSHANT DAILY PRN PRN Reason: ALLERGIES Stop: 07/22/22 00:00 Fluticasone/Vilanterol (Fluticasone/Vilanterol 100/25mcg 14 Puffs/Inhaler) 1 puffs INH DAILY [facility] Stop: 07/22/22 08:59 Last Admin: 06/23/22 08:47 Dose: 1 puffs Methylprednisolone 40 mg/ (Syringe) 0.64 mls @ 1.5 mls/min IV Q8H [facility] Stop: 07/22/22 05:59 Last Admin: 06/23/22 06:09 Dose: 1.5 mls/min Latanoprost (Latanoprost 0.005% Op Soln 2.5 Ml Btl) 1 drops OP HS [facility] Stop: 07/23/22 01:14 Last Admin: 06/23/22 01:15 Dose: 1 drops Miscellaneous (Dutasteride 0.5 Mg - Order Awaiting Action) 1 each N/A QS [facility] Stop: 07/22/22 07:59 Last Admin: 06/23/22 08:45 Dose: Not Given Montelukast Sodium (Montelukast Sodium 10 Mg Tablet) 10 mg PO PM [facility] Stop: 07/22/22 20:59 Last Admin: 06/22/22 20:43 Dose: 10 mg Nitroglycerin (Nitroglycerin Sl 0.4 Mg/Tab Tab) 0.4 mg SL UD PRN PRN Reason: Chest Pain Stop: 07/22/22 00:00 Ondansetron HCl (Ondansetron Inj 2 Mg/Ml 2 Ml Vial) 4 mg IV Q6H PRN PRN Reason: Nausea Stop: 07/22/22 00:00 Oseltamivir Phosphate (Oseltamivir Phosphate 75 Mg Cap) 75 mg PO BID [facility]; Protocol Stop: 06/27/22 08:59 Last Admin: 06/23/22 08:46 Dose: 75 mg Polyethylene Glycol (Polyethylene (Miralax) 17 Gm Pack) 17 gm PO DAILY PRN PRN Reason: Constipation Stop: 07/22/22 00:00 Rosuvastatin Calcium (Rosuvastatin Calcium 5 Mg Tab) 5 mg PO DAILY [facility] Stop: 07/22/22 08:59 Last Admin: 06/23/22 08:46 Dose: 5 mg Telmisartan (Telmisartan 40 Mg Tab) 40 mg PO DAILY [facility] Stop: 07/22/22 08:59 Last Admin: 06/23/22 08:45 Dose: 40 mg Terazosin HCl (Terazosin Hcl 1 Mg Cap) 2 mg PO DAILY [facility] Stop: 07/22/22 08:59 Last Admin: 06/23/22 08:46 Dose: 2 mg
--- NOTE | 2022-06-23 17:51 | Discharge Summary ---
Date of Service June 23, 2022 Admission HPI Per Admitting Provider DICTATED BY:Mart Cotto MD DATE OF ADMISSION: 06/21/2022. CHIEF COMPLAINT: Shortness of breath. 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 He just took one dose today, but as was not getting better, came here, found to have flu positive. The patient is flu vaccinated. Currently, saturating okay on nasal cannula, resting comfortably. Denies any headache. No blurred visions, no earache. Has mild runny nose, mild sore throat, coughing, has some phlegm. Denies any chest pain, no nausea, no vomiting, no abdominal pain. Normal bowel and bladder movements. Did not micturate much today. No swelling in the legs. Admission Exam Per Admitting Provider GENERAL: The patient is of moderate build, not in acute distress. VITAL SIGNS: Temperature 37.2, pulse 108, respiratory rate 17, blood pressure 144/79, oxygen 96% on room air. HEENT: Pupils equal, round and reactive to light. Oral mucosa moist. NECK: No JVD, no neck masses. CARDIOVASCULAR: S1 and S2 heard. Regular rate and rhythm. No murmur, no gallop. RESPIRATORY: Normal AP diameter. No accessory muscle use. Bilateral rhonchi heard. ABDOMEN: Soft, bowel sounds present, nontender, no distention. CENTRAL NERVOUS SYSTEM: Cranial nerves II through XII grossly intact, nonfocal. EXTREMITIES: No edema, no erythema. Principal Diagnosis Exacerbation of asthma Discharge Exam Sitting on a chair without any acute distress Constitutional average body habitus; not ill appearing Eyes PERRL, conjunctivae normal, anicteric sclerae ENMT external ear and nose normal, oropharynx normal Neck trachea midline, no thyromegaly Respiratory + respiratory distress (Minimal distress at rest) Auscultation: + diminished lung sounds and + wheezes (Bilateral wheezing) Cardiovascular Rate/Rhythm: regular rate, regular rhythm and + tachycardic Heart Sounds: normal S1 and normal S2; no murmur Extremities: no edema Gastrointestinal (Abdomen) Inspection/Auscultation: normal bowel sounds; abdomen not distended Percussion/Palpation: abdomen soft; abdomen nontender Psychiatric A+Ox3, euthymic affect Lymphatic no cervical or axillary lymphadenopathy Discharge Data Allergies Allergy/AdvReac Type Severity Reaction Status Date / Time Gadolinium-Containing AdvReac Unknown Verified 06/22/22 00:04 Contrast Medi Consultations 06/21/22 22:42 ED Decision to Admit Stat Hospital Course (1) Exacerbation of asthma: Increasing shortness of breath with cough Influenza A virus infection Exacerbation secondary to virus infection Has been on a steroid and nebulized bronchodilator and Tamiflu Clinically much better Has been on azithromycin for possible bacterial infection Will get to a step O2 saturation tomorrow prior to discharge Clinically much better and has been saturating on room air Will get 2 step O2 saturation test prior to discharge this afternoon (2) SOB (shortness of breath): As above (3) Influenza A: Isolation and has been on Tamiflu (4) COPD (chronic obstructive pulmonary disease) with chronic bronchitis: Has history of COPD/asthma and restrictive pulmonary disease secondary to kyphoscoliosis Under care of Dr. Stone at [facility] Will have an outpatient appointment on discharge Will need outpatient pulmonary appointment (5) Kyphoscoliosis: (6) Restrictive ventilatory defect: (7) BPH (benign prostatic hyperplasia): No acute symptoms (8) HTN (hypertension): Blood pressure is elevated as of this Extra dose of amlodipine 2.5 mg given Discussed with the patient and he will continue with his usual dose of amlodipine on discharge as his blood pressure has been running normal at home Plan DVT prophylaxis Subcu Lovenox-he has been refusing CODE STATUS Full Total Time Total Time Spent Total Time Spent (In Minutes): 35 minutes Discharge Plan Discharge Items Patient Disposition: Home - Self-Care Reason For Visit: SHORTNESS OF BREATH Discharge Diagnosis: Exacerbation of asthma Condition on Discharge: Good Activity: Resume your previous activity Non-emergency contact: Primary Care Provider Call non-emergency contact if: you have any medication questions and your symptoms worsen Follow-up/Referrals: Jarret Aponte, [Primary Care Provider] - (Your doctor's office will call you with an appointment within 7 days) Diet: Heart Healthy Addtl Attending Provider Instructions: Please take precautions to avoid fall Try to take your medications as advised Use nebulized bronchodilator as advised to you Finish the course of antibiotic and prednisone You will need to use oxygen at a rate of 2 L/min via nasal cannula with ambulation Keep using your oxygen as before at night Pending Studies at Discharge: No Stand-Alone Forms: My [facility], Smoking Cessation Medications and DC Order Prescriptions: New oseltamivir [Tamiflu] 75 mg Capsule 75 mg PO BID 3 Days Qty: 7 0RF prednisone 10 mg tablet 10 mg PO UD Qty: 22 0RF Rx Instructions: 4 p.o. daily for tomorrow, 3 p.o. daily for 3 days, 2 p.o. daily for 3 days and then 1 daily for 3 days Continued latanoprost 0.005 % Drops 1 drp OPL HS albuterol sulfate 2.5 mg /3 mL (0.083 %) Solution For Nebulization 2.5 mg INHALATION DIRECTED PRN (Reason: Shortness Of Breath Or Wheezing) azithromycin 250 mg Tablet 250 mg PO DAILY Rx Instructions: Take 2 tabs the 1st day meloxicam 15 mg Tablet 15 mg PO QPM amlodipine 5 mg Tablet 2.5 mg PO QPM Rx Instructions: STATES HE GETS 1/2 TAB. terazosin 2 mg Capsule 2 mg PO HS telmisartan 40 mg Tablet 40 mg PO DAILY aspirin 81 mg Tablet,Chewable 81 mg PO DAILY montelukast 10 mg Tablet 10 mg PO PM albuterol sulfate 90 mcg/actuation Hfa Aerosol Inhaler 2 puff INHALATION Q4 PRN (Reason: .cough/wheezing) fluticasone propionate [Flonase Allergy Relief] 50 mcg/actuation [place]ica,Suspension 2 spray INTRANASAL DAILY Rx Instructions: administer into each nostril dutasteride 0.5 mg Capsule 0.5 mg PO DAILY rosuvastatin 5 mg Tablet 5 mg PO QPM tadalafil 5 mg Tablet 5 mg PO DAILY Rx Instructions: CAN TAKE 5-15MG EXTRA AT LEAST 30 MIN PRIOR TO SEX, DAILY PRN, hydrochlorothiazide 12.5 mg Tablet 12.5 mg PO 3XWK fluticasone furoate-vilanterol [Breo Ellipta] 100-25 mcg/dose Blister With Device 1 inh INHALATION DAILY Discontinued Prednisone Taper 10 mg PO DIRECTED Rx Instructions: Start 06/21/22, take 5 tabs for 2 days, 4 tabs for 2 days, 3 tabs for 2 days, 1 tab for 2 days. Discharge Orders: Discharge Order (Routine); Ordered 06/23/22 Ordered By: Guillermo Michael Admission Data Admit Date/Time: 06/21/22 22:47 Attending Provider: Guillermo Michael Admit Provider: Mart Cotto Primary Care Provider: Jarret Aponte Other Providers: Mart Cotto Other Interventions: Discharge Summary Assessment (RN) Last Done: 06/23/22 12:31
--- NOTE | 2022-06-23 22:56 | Electrocardiogram Report ---
Test Reason : Blood Pressure : / mmHG Vent. Rate : 097 BPM Atrial Rate : 097 BPM P-R Int : 120 ms QRS Dur : 072 ms QT Int : 348 ms P-R-T Axes : 061 071 065 degrees QTc Int : 441 ms Poor data quality, interpretation may be adversely affected Normal sinus rhythm Normal ECG When compared with ECG of 23-OCT-2010 07:10, No significant change was found Confirmed by Giorgi Sol ([id number]) on 06/23/2022 10:55:55 PM Referred By: REFERRED SELF Confirmed By:Giorgi Sol
[2022-06-24] MEDS ORDERED: amLODIPine BESYLATE 5 MG TAB PO SCH (09:00)
[2022-06-24] MEDS ORDERED: predniSONE 20 MG TAB PO SCH (09:00)
== END 2022-06-23 14:09 | disposition home or self-care (01) | DRG 202 ==
LOC: ED 16:55 → 2S 22:47

== ENCOUNTER 2024-07-20 20:47 | Inpatient (IN) ==
--- NOTE | 2024-07-20 21:21 | Emergency Department Note ---
Impression & Plan COVID-19, Hyponatremia, Acute respiratory failure with hypoxia and hypercapnia ED Provider Note NAME: SOWMYA ARIAS AGE: 84 SEX: M : 1940 ARRIVES VIA: Ambulance INFORMANT: Patient ED PROVIDER(S): Sly Arita MD CHIEF COMPLAINT: Cough, shortness of breath, COVID-19. PLAN: Disposition: Admit MEDICAL DECISION MAKING: The patient is a pleasant 84-year-old gentleman with a past medical history of restrictive lung disease secondary to severe kyphoscoliosis, COPD per records, on 2 L nasal cannula at night and as needed during the day, Hypertension, hyperlipidemia, BPH who presents to the emergency department via EMS and accompanied by his for evaluation of cough, congestion, feverishness and bodyaches over the past several days where he tested positive for COVID-19 on a home test. The patient was prescribed Paxlovid and had his first dose but due to worsening shortness of breath today where the patient became pale diaphoretic with increased labored breathing EMS was called. Patient denies chest pain. He reports decreased appetite but denies vomiting. He denies diarrhea. He denies urinary symptoms. On evaluation the patient is ill-appearing in moderate respiratory distress with increased work of breathing with O2 saturation in the 80s on his home 2 L improving to the mid 90s on 6 L nasal cannula. He is febrile to 38.0 with heart rate in the 110s and blood pressure 170s/80s and respiratory rate in the upper 20s. He appears clinically dry. He exhibits wheezes and rhonchi of bilateral mid to lower lung henderson. Oropharynx with injection of the posterior pharynx without edema or exudates. Patient was treated with dexamethasone, DuoNeb, guaifenesin, nasal saline, IV APAP as well as Magic mouthwash for oral pharyngeal discomfort. Gentle IV fluid hydration provided. Patient was placed on BiPAP due to respiratory failure. EKG without overt acute ischemia. Chest x-ray demonstrates chronic right hemithorax volume loss related to patient's severe kyphoscoliosis. No focal infiltrates. Trace left pleural effusion is described. WBC within normal limits with neutrophilia without left shift and lymphopenia consistent with patient's COVID-19. H/H similar to prior. Platelets 108K, similar to prior in 2021. VBG with pCO2 54 with normal pH. Chemistry without metabolic acidosis. Sodium is 126 with glucose of 117 with osmolality of 259 and urine osms pending. Electrolytes otherwise unremarkable. BUNs/creatinine is 28 consistent with patient's clinically dry appearance. LFTs are unremarkable. High-sensitivity troponin 4.2, within normal limits. Procalcitonin is not elevated. Respiratory BioFire confirms COVID-19 infection on PCR. Patient's respiratory status did steadily improve and stabilize on BiPAP. Patient and his agree with plan for admission for further management. [facility] for [facility]. Urine osmolality is concentrated with urine sodium greater than 50 and so component of a SIADH is considered. Further management per admitting team. Triage Nursing notes reviewed and agree them. Prior/external medical records reviewed Vital Signs: reviewed Differential diagnosis: Reactive airway disease, pneumonia, pneumothorax, COPD, CHF, infections, cardiac ischemia, pulmonary embolism, musculoskeletal, gastrointestinal, as well as other pathologies. ER treatment provided: See below. Diagnostics interpreted by me: Cardiac Monitoring: An order for continuous cardiac monitoring was placed and demonstrated sinus tachycardia, 119 bpm, no ectopy. Laboratory studies: See below Imaging studies: See below Consultation(s): Case was discussed with Dr. Cotto [facility], who will evaluate the patient for admission. HPI: The patient is a pleasant 84-year-old gentleman with a past medical history of restrictive lung disease secondary to severe kyphoscoliosis, COPD per records, on 2 L nasal cannula at night and as needed during the day, Hypertension, hyperlipidemia, BPH who presents to the emergency department via EMS and accompanied by his for evaluation of cough, congestion, feverishness and bodyaches over the past several days where he tested positive for COVID-19 on a home test. The patient was prescribed Paxlovid and had his first dose but due to worsening shortness of breath today where the patient became pale diaphoretic with increased labored breathing EMS was called. Patient denies chest pain. He reports decreased appetite but denies vomiting. He denies diarrhea. He denies urinary symptoms. ROS: See above HPI for pertinent positives & negatives. A total of 10 systems reviewed and were otherwise negative. VITALS:See Below PHYSICAL EXAMINATION: GENERAL: Awake, alert, ill-appearing, moderate respiratory distress. HENT: Normocephalic, atraumatic. Oropharynx with mild injection of the posterior pharynx without edema or exudates. Mucous membranes are dry and cracked. EYES: Normal conjunctiva. Sclera non-icteric. NECK: Supple. No nuchal rigidity. FROM. No JVD. RESPIRATORY: Wheezes and rhonchi bilateral mid to lower lung henderson with increased work of breathing. CARDIAC: Tachycardic rate, normal rhythm. Extremities warm and well perfused. Pulses equal. ABDOMEN: Soft, non-distended. No tenderness to palpation. No rebound or guarding. No masses. MUSCULOSKELETAL: Chest examination reveals no tenderness. Back demonstrates severe kyphoscoliosis. There is no CVA tenderness to palpation. No joint edema. LOWER EXTREMITIES: Calves are equal size bilaterally and non-tender. No edema. No discoloration. NEURO: Normal sensorium. No sensory or motor deficits noted. SKIN: No rash or jaundice noted. ED COURSE: Critical Care: I have personally spent greater than 45 minutes of critical care time in the direct management of this patient. This includes bedside care, interpretation of diagnostic studies, and testing, discussion with consultants, patient, and family members, and other required patient management activities. This 45 minutes is in excess of all separately billable procedures. 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 Asthma BPH (benign prostatic hyperplasia) HTN (hypertension) COPD (chronic obstructive pulmonary disease) with chronic bronchitis COPD (chronic obstructive pulmonary disease) Post poliomyelitis syndrome Nocturnal hypoxemia Allergic rhinitis Social History Smoking Status: Former smoker Second Hand Exposure: Yes; Do You Dip or Chew Tobacco: No; Hx Alcohol Use: Yes Alcohol type: wine Hx Substance Use: No Preferred Language: Barbadian Communication Ability: Effective Launch Engineer Required: No Beliefs That Will Affect Care: None Current Living Situation: Spouse Feels Safe at Home: Yes Assistive Devices: Cane and Oxygen - at Night Allergies Allergies Allergy/AdvReac Type Severity Reaction Status Date / Time Gadolinium-Containing AdvReac Unknown Verified 07/20/24 23:46 Contrast Medi Home Meds Home Medications Medication Instructions Recorded Confirmed albuterol sulfate 90 mcg/actuation 2 puff inhalation Q4 PRN 06/22/22 07/20/24 aerosol inhaler .cough/wheezing aspirin 81 mg chewable tablet 81 mg PO DAILY 06/22/22 07/20/24 fluticasone furoate 100 1 inh inhalation QA 06/22/22 07/20/24 mcg-vilanterol 25 mcg/dose inhalation powder (Breo Ellipta) latanoprost 0.005 % eye drops 1 drp OPL 06/22/22 07/20/24 meloxicam 15 mg tablet 15 mg PO QAM 06/22/22 07/20/24 montelukast 10 mg tablet 10 mg PO QA 06/22/22 07/20/24 rosuvastatin 5 mg tablet 5 mg PO QPM 06/22/22 07/20/24 telmisartan 40 mg tablet 40 mg PO DAILY 06/22/22 07/20/24 terazosin 2 mg capsule 2 mg PO HS 06/22/22 07/20/24 amlodipine 2.5 mg tablet 2.5 mg PO QAM 07/20/24 07/20/24 ipratropium 0.5 mg-albuterol 3 mg 3 ml inhalation Q6 PRN wheezing or 07/20/24 07/20/24 (2.5 mg base)/3 mL nebulization dyspnea soln Results & Data (ED) Vital Signs Vital Signs - 24 hr 07/20/24 20:56 07/20/24 20:58 07/20/24 20:58 Temperature 38.0 C H Temperature Source Oral Pulse Rate 119 H 120 H Pulse Rate [Apical] 120 H Pulse Rhythm Regular Pulse Rhythm [Apical] Regular Pulse Strength Normal Pulse Strength [Apical] Normal Respiratory Rate 28 H 28 H Respiratory Effort / Characteristics Non-Labored Spontaneous Spontaneous Labored Respiratory Depth Normal Normal Respiratory Pattern Regular Regular Blood Pressure 175/86 H Blood Pressure [Right Arm] Blood Pressure Mean 115 Blood Pressure Mean [Right Arm] Blood Pressure Position Sitting Blood Pressure Position [Right Arm] Pulse Oximetry 93 93 Oxygen Delivery Method Nasal Cannula Nasal Cannula Oxygen Flow Rate 6 6 Fraction of Inspired Oxygen SaO2/FiO2 Ratio Sepsis Recent Fever Within 48 Hours Yes Sepsis New/Unexplained Change in Mental Status No Sepsis Action Taken by Nursing Physician Notified 07/20/24 20:58 07/20/24 21:14 07/20/24 21:34 Temperature Temperature Source Pulse Rate 117 H Pulse Rate [Apical] 118 H Pulse Rhythm Regular Pulse Rhythm [Apical] Pulse Strength Pulse Strength [Apical] Respiratory Rate 28 H 20 Respiratory Effort / Characteristics Non-Labored Spontaneous Respiratory Depth Respiratory Pattern Blood Pressure Blood Pressure [Right Arm] Blood Pressure Mean Blood Pressure Mean [Right Arm] Blood Pressure Position Blood Pressure Position [Right Arm] Pulse Oximetry 93 94 98 Oxygen Delivery Method Nasal Cannula Nasal Cannula Nasal Cannula Oxygen Flow Rate 6 6 5 Fraction of Inspired Oxygen SaO2/FiO2 Ratio Sepsis Recent Fever Within 48 Hours Sepsis New/Unexplained Change in Mental Status Sepsis Action Taken by Nursing 07/20/24 21:35 07/20/24 22:41 07/20/24 23:36 Temperature Temperature Source Pulse Rate 114 H 99 H Pulse Rate [Apical] 100 H Pulse Rhythm Pulse Rhythm [Apical] Regular Pulse Strength Pulse Strength [Apical] Normal Respiratory Rate 27 H 18 19 Respiratory Effort / Characteristics Non-Labored Spontaneous Non-Labored Spontaneous Non-Labored Spontaneous Respiratory Depth Normal Normal Normal Respiratory Pattern Tachypnea Regular Regular Blood Pressure Blood Pressure [Right Arm] 143/76 H Blood Pressure Mean Blood Pressure Mean [Right Arm] 98 Blood Pressure Position Blood Pressure Position [Right Arm] Sitting Pulse Oximetry 96 94 97 Oxygen Delivery Method CPAP Oxygen Flow Rate Fraction of Inspired Oxygen 40 35 35 SaO2/FiO2 Ratio 268 Sepsis Recent Fever Within 48 Hours Sepsis New/Unexplained Change in Mental Status Sepsis Action Taken by Nursing 07/21/24 00:36 07/21/24 01:20 07/21/24 01:58 Temperature Temperature Source Pulse Rate 101 H 71 Pulse Rate [Apical] 66 Pulse Rhythm Pulse Rhythm [Apical] Pulse Strength Pulse Strength [Apical] Respiratory Rate 20 18 Respiratory Effort / Characteristics Non-Labored Respiratory Depth Normal Respiratory Pattern Regular Blood Pressure Blood Pressure [Right Arm] 118/64 Blood Pressure Mean Blood Pressure Mean [Right Arm] 82 Blood Pressure Position Blood Pressure Position [Right Arm] Pulse Oximetry 98 98 Oxygen Delivery Method BiPAP Oxygen Flow Rate Fraction of Inspired Oxygen 50 SaO2/FiO2 Ratio Sepsis Recent Fever Within 48 Hours Sepsis New/Unexplained Change in Mental Status Sepsis Action Taken by Nursing 07/21/24 03:00 Temperature Temperature Source Pulse Rate Pulse Rate [Apical] 67 Pulse Rhythm Pulse Rhythm [Apical] Pulse Strength Pulse Strength [Apical] Respiratory Rate 20 Respiratory Effort / Characteristics Non-Labored Respiratory Depth Normal Respiratory Pattern Regular Blood Pressure Blood Pressure [Right Arm] 121/70 Blood Pressure Mean Blood Pressure Mean [Right Arm] 87 Blood Pressure Position Blood Pressure Position [Right Arm] Pulse Oximetry 97 Oxygen Delivery Method BiPAP Oxygen Flow Rate Fraction of Inspired Oxygen SaO2/FiO2 Ratio Sepsis Recent Fever Within 48 Hours Sepsis New/Unexplained Change in Mental Status Sepsis Action Taken by Nursing Laboratory Data Attestation: I reviewed the patient's lab results. 07/20/24 21:06 07/20/24 21:00 Lab Results 07/20/24 07/20/24 07/20/24 Range/Units 20:55 21:00 21:06 WBC 10.36 (4.8-10.8) K/ul RBC 4.36 L (4.70-6.10) M/uL Hgb 11.4 L (14.0-18.0) g/dl Hct 34.6 L (42.0-52.0) % MCV 79.4 L (80.0-100.0) fL MCH 26.1 (25.0-34.0) pg MCHC 32.9 (32.0-36.0) g/dL RDW Std Deviation 45.0 (36.4-46.3) fL RDW Coeff of Blas 15.6 H (11.5-14.5) % Plt Count 108 L (130-400) K/uL MPV 9.3 L (9.4-12.4) fL Immature Gran % (Auto) 0.4 % Neut % (Auto) 82.2 % Lymph % (Auto) 3.8 % Saunders % (Auto) 13.4 % Eos % (Auto) 0.0 % Baso % (Auto) 0.2 % Neut # (Auto) 8.52 H (1.40-6.50) K/uL Lymph # (Auto) 0.39 L (1.20-3.40) K/uL Saunders # (Auto) 1.39 H (0.11-0.59) K/uL Eos # (Auto) 0.00 (0.00-0.50) K/uL Baso # (Auto) 0.02 (0.00-0.20) K/uL Immature Gran # (Auto) 0.04 (0.01-0.20) K/uL VBG pH 7.36 (7.36-7.41) VBG pCO2 54 H (38-50) mmHg VBG pO2 48 mmHg VBG HCO3 31 mmol/L VBG O2 Saturation 77.6 % VBG Base Excess 3.9 mEq/L Sodium 126 L (136-145) mmol/L Potassium 4.0 (3.5-5.1) mmol/L Chloride 90 L (98-107) mmol/L Carbon Dioxide 30 (21-32) mmol/L Anion Gap 6 (3-11) BUN 13 (6-23) mg/dl Creatinine 0.46 L (0.6-1.4) mg/dl Est Cr Clr Drug Dosing 103.7 ml/min eGFR 104.43 BUN/Creatinine Ratio 28.3 H (10-20) Glucose 117 H (70-99(Fasting)) mg/dl POC Glucose (70-99) mg/dl Osmolality 259 L (280-300) mOsm/kg Calcium 8.3 L (8.6-10.3) mg/dl Magnesium 1.7 (1.7-2.4) mg/dl Total Bilirubin 0.6 (0.2-1.0) mg/dl AST 28 (13-39) U/L ALT 23 (7-52) U/L Alkaline Phosphatase 80 (34-104) U/L Troponin I High Sens 4.2 (0-20) pg/ml Total Protein 6.3 (6.0-8.3) gm/dl Albumin 4.0 (3.4-5.0) gm/dl Globulin 2.3 L (2.5-4.0) gm/dl Albumin/Globulin Ratio 1.7 (0.9-2) Lipase 10 L (11-82) U/L Procalcitonin 0.11 (0-0.5) ng/ml Urine Osmolality (500-800) mOsm/kg Ur Random Sodium mmol/L Adenovirus (PCR) Not Detected (NotDetected) B. pertussis DNA (PCR) Not Detected (NotDetected) B.parapertussis DNA PCR Not Detected (NotDetected) C. pneumoniae DNA (PCR) Not Detected (NotDetected) Coronavirus OC43 (PCR) Not Detected (NotDetected) Coronavirus HKU1 (PCR) Not Detected (NotDetected) Coronavirus 229E (PCR) Not Detected (NotDetected) SARS-CoV-2 (PCR) DETECTED A (NotDetected) Coronavirus NL63 (PCR) Not Detected (NotDetected) Human Metapneumovir PCR Not Detected (NotDetected) Influenza Type A (PCR) Not Detected (NotDetected) Influenza Type B (PCR) Not Detected (NotDetected) M. pneumoniae (PCR) Not Detected (NotDetected) Parainfluenza 1 (PCR) Not Detected (NotDetected) Parainfluenza 2 (PCR) Not Detected (NotDetected) Parainfluenza 3 (PCR) Not Detected (NotDetected) Parainfluenza 4 (PCR) Not Detected (NotDetected) RSV (PCR) Not Detected (NotDetected) Entero/Rhino (PCR) Not Detected (NotDetected) 07/21/24 07/21/24 07/21/24 Range/Units 00:30 00:52 01:35 WBC (4.8-10.8) K/ul RBC (4.70-6.10) M/uL Hgb (14.0-18.0) g/dl Hct (42.0-52.0) % MCV (80.0-100.0) fL MCH (25.0-34.0) pg MCHC (32.0-36.0) g/dL RDW Std Deviation (36.4-46.3) fL RDW Coeff of Blas (11.5-14.5) % Plt Count (130-400) K/uL MPV (9.4-12.4) fL Immature Gran % (Auto) % Neut % (Auto) % Lymph % (Auto) % Saunders % (Auto) % Eos % (Auto) % Baso % (Auto) % Neut # (Auto) (1.40-6.50) K/uL Lymph # (Auto) (1.20-3.40) K/uL Saunders # (Auto) (0.11-0.59) K/uL Eos # (Auto) (0.00-0.50) K/uL Baso # (Auto) (0.00-0.20) K/uL Immature Gran # (Auto) (0.01-0.20) K/uL VBG pH 7.29 L (7.36-7.41) VBG pCO2 58 H (38-50) mmHg VBG pO2 70 mmHg VBG HCO3 28 mmol/L VBG O2 Saturation 92.6 % VBG Base Excess 0.1 mEq/L Sodium (136-145) mmol/L Potassium (3.5-5.1) mmol/L Chloride (98-107) mmol/L Carbon Dioxide (21-32) mmol/L Anion Gap (3-11) BUN (6-23) mg/dl Creatinine (0.6-1.4) mg/dl Est Cr Clr Drug Dosing ml/min eGFR BUN/Creatinine Ratio (10-20) Glucose (70-99(Fasting)) mg/dl POC Glucose 132 H (70-99) mg/dl Osmolality (280-300) mOsm/kg Calcium (8.6-10.3) mg/dl Magnesium (1.7-2.4) mg/dl Total Bilirubin (0.2-1.0) mg/dl AST (13-39) U/L ALT (7-52) U/L Alkaline Phosphatase (34-104) U/L Troponin I High Sens (0-20) pg/ml Total Protein (6.0-8.3) gm/dl Albumin (3.4-5.0) gm/dl Globulin (2.5-4.0) gm/dl Albumin/Globulin Ratio (0.9-2) Lipase (11-82) U/L Procalcitonin (0-0.5) ng/ml Urine Osmolality 547 (500-800) mOsm/kg Ur Random Sodium 73 mmol/L Adenovirus (PCR) (NotDetected) B. pertussis DNA (PCR) (NotDetected) B.parapertussis DNA PCR (NotDetected) C. pneumoniae DNA (PCR) (NotDetected) Coronavirus OC43 (PCR) (NotDetected) Coronavirus HKU1 (PCR) (NotDetected) Coronavirus 229E (PCR) (NotDetected) SARS-CoV-2 (PCR) (NotDetected) Coronavirus NL63 (PCR) (NotDetected) Human Metapneumovir PCR (NotDetected) Influenza Type A (PCR) (NotDetected) Influenza Type B (PCR) (NotDetected) M. pneumoniae (PCR) (NotDetected) Parainfluenza 1 (PCR) (NotDetected) Parainfluenza 2 (PCR) (NotDetected) Parainfluenza 3 (PCR) (NotDetected) Parainfluenza 4 (PCR) (NotDetected) RSV (PCR) (NotDetected) Entero/Rhino (PCR) (NotDetected) Administered Medications Discontinued Medications Albuterol (Albut/Ipratrop 3mg/0.5mg Neb 3 Ml Vial) 3 ml NEB NOW STA; Protocol Stop: 07/20/24 21:19 Last Admin: 07/20/24 21:26 Dose: 3 ml Documented By: MG Dexamethasone Sodium Phosphate (DexamethasonePf 10 Mg/Ml Vial) 10 mg IV NOW ONE Stop: 07/20/24 21:19 Last Admin: 07/20/24 21:26 Dose: 10 mg Documented By: MG Guaifenesin (Guaifenesin 600 Mg Tabcr) 600 mg PO NOW STA Stop: 07/20/24 21:19 Last Admin: 07/20/24 21:26 Dose: 600 mg Documented By: MG Acetaminophen (Ofirmev) 1,000 mg in 100 mls @ 400 mls/hr IV NOW STA Stop: 07/20/24 21:34 Last Infusion: 07/20/24 21:50 Dose: Infused Documented By: Admin: 07/20/24 21:26 Dose: 400 mls/hr Documented By: MG Sodium Chloride (Nss) 500 mls @ 999 mls/hr IV .Q31M ONE Stop: 07/20/24 23:51 Last Infusion: 07/21/24 00:29 Dose: Infused Documented By: Admin: 07/20/24 23:40 Dose: 999 mls/hr Documented By: MANUEL Multi-Ingredient Mouthwash/Gargle (First - Mouthwash Blm 5 Ml Udp) 5 ml PO ONE ONE Stop: 07/20/24 21:19 Last Admin: 07/20/24 21:57 Dose: 5 ml Documented By: MG Sodium Chloride (Sodium Chloride 0.65% Na Soln 45 Ml (Umbarger)) 2 sprays NA NOW ONE Stop: 07/20/24 21:19 Last Admin: 07/20/24 21:26 Dose: 2 sprays Documented By: SNS Imaging Data Radiologist's Impression: Chest X-Ray 07/20/24 21:06 Exam(s): XR CXR 1 VIEW EXAM: XR Chest, 1 View CLINICAL HISTORY: Reason for exam: Chest pain, nonspecific. TECHNIQUE: Frontal view of the chest. COMPARISON: 06/21/2022 FINDINGS: Lungs: See below. Pleural space: No pneumothorax. Heart: Unremarkable. No cardiomegaly. Mediastinum: Significant right hemithorax volume loss with left to right mediastinal shift. This is unchanged. No acute infiltrate. Trace left pleural effusion. Bones/joints: Unremarkable. No acute fracture. IMPRESSION: As above Electronically signed by: Benjamin Aguilar MD 07/20/24 23:38 PM Discharge Plan Visit Data Chief Complaint: Illness Stated Complaint: SORETHROAT, COUGH, COVID + ED Provider: Sly Arita Discharge Problem: COVID-19, Hyponatremia, Acute respiratory failure with hypoxia and hypercapnia Patient Disposition: Admitted As Inpatient Forms Stand Alone Forms: [facility] Prescriptions Prescriptions: No Action latanoprost 0.005 % Drops 1 drp OPL HS meloxicam 15 mg Tablet 15 mg PO QAM terazosin 2 mg Capsule 2 mg PO HS telmisartan 40 mg Tablet 40 mg PO DAILY aspirin 81 mg Tablet,Chewable 81 mg PO DAILY montelukast 10 mg Tablet 10 mg PO QAM albuterol sulfate 90 mcg/actuation Hfa Aerosol Inhaler 2 puff INHALATION Q4 PRN (Reason: .cough/wheezing) rosuvastatin 5 mg Tablet 5 mg PO QPM fluticasone furoate-vilanterol [Breo Ellipta] 100-25 mcg/dose Blister With Device 1 inh INHALATION QAM amlodipine 2.5 mg tablet 2.5 mg PO QAM ipratropium-albuterol 0.5 mg-3 mg(2.5 mg base)/3 mL solution for nebulization 3 ml INHALATION Q6 PRN (Reason: wheezing or dyspnea) Referrals Referrals: Jarret Aponte DO [Primary Care Provider] -
[2024-07-20] MEDS: guaiFENesin 600 MG TABCR PO STA (21:26)
[2024-07-20] MEDS: dexAMETHasone**PF** 10 MG/ML VIAL IV ONE (21:26)
[2024-07-20] MEDS: SODIUM CHLORIDE 0.65% NA SOLN 45 ML (OCEAN) ONE (21:26)
[2024-07-20] MEDS: ALBUT/IPRATROP 3MG/0.5MG NEB 3 ML VIAL NEB STA (21:26)
[2024-07-20] MEDS: ACETAMINOPHEN 1,000 MG/100 ML VIAL IV STA (21:26)
[2024-07-20 21:27] LABS: Base Excess VBG 3.9 mEq/L; HCO3 VBG 31 mmol/L; Oxygen Saturation VBG 77.6 %; PCO2 VBG 54 mmHg (38-50); PO2 VBG 48 mmHg; pH VBG 7.36 (7.36-7.41)
[2024-07-20 21:32] LABS: Basophils # (auto) 0.02 K/uL (0.00-0.20); Basophils % (auto) 0.2 %; Hematocrit (blood only) 34.6 % (42.0-52.0); Hemoglobin 11.4 g/dl (14.0-18.0); Immature Granulocytes # (auto) 0.04 K/uL (0.01-0.20); Immature Granulocytes % (auto) 0.4 %; Lymphocytes # (auto) 0.39 K/uL (1.20-3.40); Lymphocytes % (auto) 3.8 %; Mean Corpuscular Hemoglobin 26.1 pg (25.0-34.0); Mean Corpuscular Hgb Conc 32.9 g/dL (32.0-36.0); Mean Corpuscular Volume 79.4 fL (80.0-100.0); Mean Platelet Volume 9.3 fL (9.4-12.4); Monocytes # (auto) 1.39 K/uL (0.11-0.59); Monocytes % (auto) 13.4 %; Neutrophils # (auto) 8.52 K/uL (1.40-6.50); Neutrophils % (auto) 82.2 %; Platelet Count 108 K/uL (130-400); RDW Coefficient of Variation 15.6 % (11.5-14.5); Red Blood Count 4.36 M/uL (4.70-6.10); White Blood Count 10.36 K/ul (4.8-10.8)
[2024-07-20 21:42] LABS: Albumin Globulin Ratio 1.7 (0.9-2); BUN Creatinine Ratio 28.3 (10-20); Bilirubin,Total 0.6 mg/dl (0.2-1.0); Calcium 8.3 mg/dl (8.6-10.3); Creatinine Clr Calc Pharmacy 103.7 ml/min; Globulin 2.3 gm/dl (2.5-4.0); Magnesium 1.7 mg/dl (1.7-2.4); Total Protein 6.3 gm/dl (6.0-8.3)
[2024-07-20 21:48] LABS: Troponin I High Sensitivity 4.2 pg/ml (0-20)
[2024-07-20] MEDS: FIRST - Mouthwash BLM 5 ML UDP PO ONE (21:57)
[2024-07-20 22:14] LABS: Adenovirus PCR Not Detected (NotDetected); Bordetella parapertussis PCR Not Detected (NotDetected); Bordetella pertussis PCR Not Detected (NotDetected); Chlamydia pneumoniae PCR Not Detected (NotDetected); Coronavirus 229E PCR Not Detected (NotDetected); Coronavirus CoV-2 (COVID19)PCR DETECTED (NotDetected); Coronavirus HKU1 PCR Not Detected (NotDetected); Coronavirus NL63 PCR Not Detected (NotDetected); Coronavirus OC43PCR Not Detected (NotDetected); Human Metapneumovirus PCR Not Detected (NotDetected); Influenza A PCR Not Detected (NotDetected); Influenza B PCR Not Detected (NotDetected); Mycoplasma pneumoniae PCR Not Detected (NotDetected); Parainfluenza Virus 1 PCR Not Detected (NotDetected); Parainfluenza Virus 2 PCR Not Detected (NotDetected); Parainfluenza Virus 3 PCR Not Detected (NotDetected); Parainfluenza Virus 4 PCR Not Detected (NotDetected); Respiratory Syncytial VirusPCR Not Detected (NotDetected); Rhinovirus/Enterovirus PCR Not Detected (NotDetected)
--- NOTE | 2024-07-20 23:39 | XRay Report ---
Exam(s): XR CXR 1 VIEW EXAM: XR Chest, 1 View CLINICAL HISTORY: Reason for exam: Chest pain, nonspecific. TECHNIQUE: Frontal view of the chest. COMPARISON: 06/21/2022 FINDINGS: Lungs: See below. Pleural space: No pneumothorax. Heart: Unremarkable. No cardiomegaly. Mediastinum: Significant right hemithorax volume loss with left to right mediastinal shift. This is unchanged. No acute infiltrate. Trace left pleural effusion. Bones/joints: Unremarkable. No acute fracture. IMPRESSION: As above Electronically signed by: Benjamin Aguilar MD 07/20/24 23:38 PM
[2024-07-20] MEDS: SODIUM CHLORIDE 0.9% 500 ML IV ONE (23:40)
[2024-07-21 01:45] LABS: Base Excess VBG 0.1 mEq/L; HCO3 VBG 28 mmol/L; Oxygen Saturation VBG 92.6 %; PCO2 VBG 58 mmHg (38-50); PO2 VBG 70 mmHg; pH VBG 7.29 (7.36-7.41)
--- NOTE | 2024-07-21 01:50 | History & Physical Report ---
Date of Service July 21, 2024 Assessment & Plan (1) Acute respiratory failure with hypoxia and hypercapnia: Plan: 84-year-old male with past medical history significant for severe restrictive lung disease, Severe kyphoscoliosis, Obstructive lung disease, , postpolio syndrome, allergic rhinitis, hyperlipidemia, nocturnal hypoxemia, uses 2 liters oxygen while ambulating and while sleeping, hypertension, BPH, history of COVID- 19, presents with acute on chronic respiratory failure requiring BiPAP and COVID-positive. As per ER patient was having shortness of breath for 2 days. Took 1 dose of Paxlovid. Currently patient is very drowsy. Could not get any history from the patient. Could not able to reach the at this time. Patient having some CO2 retention , BiPAP settings were adjusted. He was febrile in the ER. Sodium 126. Respiratory bio fire positive for COVID. Acute respite failure with hypoxia and hypercapnia Acute on chronic respiratory failure. On home oxygen 2 L with ambulation and while sleeping History of Severe restrictive lung disease. Severe kyphoscoliosis. Obstructive lung disease Has COVID On BiPAP Still very drowsy and CO2 retention Received nebs and decadron in ER Will continue with nebs [id number] and as needed IV Decadron Remdesivir and follow remdesivir labs Follow procalcitonin As co2 not improved much transferred to ICU for close monitor Appreciate critical care help Hyponatremia Sodium 126 Received fluids in the ER Will follow repeat labs Nephro consult in a.m. Hypertension On amlodipine and telmisartan and terazosin We will monitor Hyperlipidemia On rosuvastatin History of BPH On terazosin Monitor for urinary retention Nocturnal hypoxemia On oxygen nightly Thrombocytopenia Seems chronic We will follow labs DVT prophylaxis Heparin subcu Monitor platelets Disposition ICU CODE STATUS Full code History of Present Illness Chief Complaint: Acute on chronic respiratory failure, COVID Primary Care Provider: Jarret Aponte DO 84-year-old male with past medical history significant for severe restrictive lung disease, Severe kyphoscoliosis, Obstructive lung disease, , postpolio syndrome, allergic rhinitis, hyperlipidemia, nocturnal hypoxemia, uses 2 liters oxygen while ambulating and while sleeping, hypertension, BPH, history of COVID- 19, presents with acute on chronic respiratory failure requiring BiPAP and COVID-positive. As per ER patient was having shortness of breath for 2 days. Took 1 dose of Paxlovid. Currently patient is very drowsy. Could not get any history from the patient. Could not able to reach the at this time. Patient having some CO2 retention , BiPAP settings were adjusted. He was febrile in the ER. Sodium 126. Respiratory bio fire positive for COVID. PAST MEDICAL HISTORY: As mentioned above. PAST SURGICAL HISTORY: Colonoscopy, biopsy, humerus fracture surgery, spinal fusion surgery. FAMILY HISTORY: Significant for father had lung cancer, brother has colon cancer, bypass surgery, Down syndrome;brother had throat cancer. SOCIAL HISTORY: , lives with his . Quit smoking in 1968, smoked 1 pack a day for 3 years. Alcohol, 1 or 2 glasses of wine daily. No drug use. Allergies Allergy/AdvReac Type Severity Reaction Status Date / Time Gadolinium-Containing AdvReac Unknown Verified 07/20/24 23:46 Contrast [facility] Home Medications Medication Instructions Recorded Confirmed Type albuterol sulfate 90 mcg/actuation 2 puff inhalation Q4 PRN 06/22/22 07/20/24 History aerosol inhaler .cough/wheezing aspirin 81 mg chewable tablet 81 mg PO DAILY 06/22/22 07/20/24 History fluticasone furoate 100 1 inh inhalation QAM 06/22/22 07/20/24 History mcg-vilanterol 25 mcg/dose inhalation powder (Breo Ellipta) latanoprost 0.005 % eye drops 1 drp OPL HS 06/22/22 07/20/24 History meloxicam 15 mg tablet 15 mg PO QAM 06/22/22 07/20/24 History montelukast 10 mg tablet 10 mg PO QAM 06/22/22 07/20/24 History rosuvastatin 5 mg tablet 5 mg PO QPM 06/22/22 07/20/24 History telmisartan 40 mg tablet 40 mg PO DAILY 06/22/22 07/20/24 History terazosin 2 mg capsule 2 mg PO HS 06/22/22 07/20/24 History amlodipine 2.5 mg tablet 2.5 mg PO QAM 07/20/24 07/20/24 History ipratropium 0.5 mg-albuterol 3 mg 3 ml inhalation Q6 PRN wheezing or 07/20/24 07/20/24 History (2.5 mg base)/3 mL nebulization dyspnea soln Past Med/Surg History Problem List Acute respiratory failure with hypoxia and hypercapnia Hyponatremia (Acute) COVID-19 (Acute) Acute respiratory failure with hypoxia (Acute) Exacerbation of asthma Influenza A (Acute) Severe scoliosis Kyphoscoliosis Restrictive ventilatory defect Medical History SOB (shortness of breath) 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 Asthma BPH (benign prostatic hyperplasia) HTN (hypertension) COPD (chronic obstructive pulmonary disease) with chronic bronchitis COPD (chronic obstructive pulmonary disease) Post poliomyelitis syndrome Nocturnal hypoxemia Allergic rhinitis Social History Smoking Status: Former smoker Second Hand Exposure: Yes; Do You Dip or Chew Tobacco: No; Hx Alcohol Use: Yes Alcohol type: wine Hx Substance Use: No Preferred Language: Latvian Communication Ability: Effective Refrigerator Tester Required: No Beliefs That Will Affect Care: None Current Living Situation: Spouse Feels Safe at Home: Yes Safety Concerns: Feels Safe At This Time Assistive Devices: Cane Review of Systems Review of Systems: Unobtainable due to reduced consciousness Physical Exam Physical Exam: General- Very Drowsy Head- atraumatic Neck- , no JVD. Lungs- CTA b/l , bilateral rhonchi heard Heart- regular rhythm; no murmur, no gallop. Abdomen- normal bowel sounds, soft, no distension Extremities- no pretibial edema, no erytehma seen Neuro- very drowsy, opens eyes but goes to sleep quickly ,moves extremities to painful stimuli Results & Data Results & Data Vital Signs (Past 12 Hours) Vital Signs Temp Pulse Pulse Resp BP BP Pulse Ox 07/21/24 01:20 71 07/21/24 00:36 101 H 20 98 07/20/24 23:36 99 H 19 97 07/20/24 22:41 100 H 18 143/76 H 94 07/20/24 21:35 114 H 27 H 96 07/20/24 21:34 118 H 20 98 07/20/24 21:14 117 H 28 H 94 07/20/24 20:58 93 07/20/24 20:58 120 H 28 H 93 07/20/24 20:58 38.0 C H 120 H 28 H 175/86 H 93 07/20/24 20:56 119 H O2 Del Method O2 Flow Rate FiO2 07/21/24 01:20 07/21/24 00:36 50 07/20/24 23:36 35 07/20/24 22:41 CPAP 35 07/20/24 21:35 40 07/20/24 21:34 Nasal Cannula 5 07/20/24 21:14 Nasal Cannula 6 07/20/24 20:58 Nasal Cannula 6 07/20/24 20:58 Nasal Cannula 6 07/20/24 20:58 Nasal Cannula 6 07/20/24 20:56 Diagnostic Findings Laboratory Results WBC 10.36 K/ul (4.8-10.8) 07/20/24 21:06 RBC 4.36 M/uL (4.70-6.10) L 07/20/24 21:06 Hgb 11.4 g/dl (14.0-18.0) L 07/20/24 21:06 Hct 34.6 % (42.0-52.0) L 07/20/24 21:06 MCV 79.4 fL (80.0-100.0) L 07/20/24 21:06 MCH 26.1 pg (25.0-34.0) 07/20/24 21:06 MCHC 32.9 g/dL (32.0-36.0) 07/20/24 21:06 RDW Std Deviation 45.0 fL (36.4-46.3) 07/20/24 21:06 RDW Coeff of Blas 15.6 % (11.5-14.5) H 07/20/24 21:06 Plt Count 108 K/uL (130-400) L 07/20/24 21:06 MPV 9.3 fL (9.4-12.4) L 07/20/24 21:06 Immature Gran % (Auto) 0.4 % 07/20/24 21:06 Neut % (Auto) 82.2 % 07/20/24 21:06 Lymph % (Auto) 3.8 % 07/20/24 21:06 [place] % (Auto) 13.4 % 07/20/24 21:06 Eos % (Auto) 0.0 % 07/20/24 21:06 Baso % (Auto) 0.2 % 07/20/24 21:06 Neut # (Auto) 8.52 K/uL (1.40-6.50) H 07/20/24 21:06 Lymph # (Auto) 0.39 K/uL (1.20-3.40) L 07/20/24 21:06 [place] # (Auto) 1.39 K/uL (0.11-0.59) H 07/20/24 21:06 Eos # (Auto) 0.00 K/uL (0.00-0.50) 07/20/24 21:06 Baso # (Auto) 0.02 K/uL (0.00-0.20) 07/20/24 21:06 Immature Gran # (Auto) 0.04 K/uL (0.01-0.20) 07/20/24 21:06 VBG pH 7.29 (7.36-7.41) L 07/21/24 01:35 VBG pCO2 58 mmHg (38-50) H 07/21/24 01:35 VBG pO2 70 mmHg 07/21/24 01:35 VBG HCO3 28 mmol/L 07/21/24 01:35 VBG O2 Saturation 92.6 % 07/21/24 01:35 VBG Base Excess 0.1 mEq/L 07/21/24 01:35 Sodium 126 mmol/L (136-145) L 07/20/24 21:00 Potassium 4.0 mmol/L (3.5-5.1) 07/20/24 21:00 Chloride 90 mmol/L (98-107) L 07/20/24 21:00 Carbon Dioxide 30 mmol/L (21-32) 07/20/24 21:00 Anion Gap 6 (3-11) 07/20/24 21:00 BUN 13 mg/dl (6-23) 07/20/24 21:00 Creatinine 0.46 mg/dl (0.6-1.4) L 07/20/24 21:00 Est Cr Clr Drug Dosing 103.7 ml/min 07/20/24 21:00 eGFR 104.43 07/20/24 21:00 BUN/Creatinine Ratio 28.3 (10-20) H 07/20/24 21:00 Glucose 117 mg/dl (70-99(Fasting)) H 07/20/24 21:00 POC Glucose 132 mg/dl (70-99) H 07/21/24 00:52 Osmolality 259 mOsm/kg (280-300) L 07/20/24 21:06 Calcium 8.3 mg/dl (8.6-10.3) L 07/20/24 21:00 Magnesium 1.7 mg/dl (1.7-2.4) 07/20/24 21:00 Total Bilirubin 0.6 mg/dl (0.2-1.0) 07/20/24 21:00 AST 28 U/L (13-39) 07/20/24 21:00 ALT 23 U/L (7-52) 07/20/24 21:00 Alkaline Phosphatase 80 U/L (34-104) 07/20/24 21:00 Troponin I High Sens 4.2 pg/ml (0-20) 07/20/24 21:00 Total Protein 6.3 gm/dl (6.0-8.3) 07/20/24 21:00 Albumin 4.0 gm/dl (3.4-5.0) 07/20/24 21:00 Globulin 2.3 gm/dl (2.5-4.0) L 07/20/24 21:00 Albumin/Globulin Ratio 1.7 (0.9-2) 07/20/24 21:00 Lipase 10 U/L (11-82) L 07/20/24 21:00 Procalcitonin 0.11 ng/ml (0-0.5) 07/20/24 21:06 Urine Osmolality 547 mOsm/kg (500-800) 07/21/24 00:30 Ur Random Sodium 73 mmol/L 07/21/24 00:30 Adenovirus (PCR) Not Detected (NotDetected) 07/20/24 20:55 B. pertussis DNA (PCR) Not Detected (NotDetected) 07/20/24 20:55 B.parapertussis DNA PCR Not Detected (NotDetected) 07/20/24 20:55 C. pneumoniae DNA (PCR) Not Detected (NotDetected) 07/20/24 20:55 Coronavirus OC43 (PCR) Not Detected (NotDetected) 07/20/24 20:55 Coronavirus HKU1 (PCR) Not Detected (NotDetected) 07/20/24 20:55 Coronavirus 229E (PCR) Not Detected (NotDetected) 07/20/24 20:55 SARS-CoV-2 (PCR) DETECTED (NotDetected) A 07/20/24 20:55 Coronavirus NL63 (PCR) Not Detected (NotDetected) 07/20/24 20:55 Human Metapneumovir PCR Not Detected (NotDetected) 07/20/24 20:55 Influenza Type A (PCR) Not Detected (NotDetected) 07/20/24 20:55 Influenza Type B (PCR) Not Detected (NotDetected) 07/20/24 20:55 M. pneumoniae (PCR) Not Detected (NotDetected) 07/20/24 20:55 Parainfluenza 1 (PCR) Not Detected (NotDetected) 07/20/24 20:55 Parainfluenza 2 (PCR) Not Detected (NotDetected) 07/20/24 20:55 Parainfluenza 3 (PCR) Not Detected (NotDetected) 07/20/24 20:55 Parainfluenza 4 (PCR) Not Detected (NotDetected) 07/20/24 20:55 RSV (PCR) Not Detected (NotDetected) 07/20/24 20:55 Entero/Rhino (PCR) Not Detected (NotDetected) 07/20/24 20:55 Impressions Chest X-Ray 07/20/24 21:06 Exam(s): XR CXR 1 VIEW EXAM: XR Chest, 1 View CLINICAL HISTORY: Reason for exam: Chest pain, nonspecific. TECHNIQUE: Frontal view of the chest. COMPARISON: 06/21/2022 FINDINGS: Lungs: See below. Pleural space: No pneumothorax. Heart: Unremarkable. No cardiomegaly. Mediastinum: Significant right hemithorax volume loss with left to right mediastinal shift. This is unchanged. No acute infiltrate. Trace left pleural effusion. Bones/joints: Unremarkable. No acute fracture. IMPRESSION: As above Electronically signed by: Benjamin Aguilar MD 07/20/24 23:38 PM ECG Additional Comments: ECG. Sinus tachycardia rate of 116. Possible left atrial enlargement. No significant change was found. Code Status & VTE Plan VTE Prophylaxis Plan VTE Prophylaxis will be ordered: Yes
--- NOTE | 2024-07-21 03:24 | Critical Care Consultation ---
Date of Consultation July 21, 2024 Assessment & Plan (1) Acute respiratory failure with hypoxia and hypercapnia: (2) Hyponatremia: (3) COVID-19: (4) Acute respiratory failure with hypoxia: (5) Severe scoliosis: (6) Restrictive ventilatory defect: Plan Reason Critically Ill: 84 YOM presents to the hospital with 2 day history of shortness of breath, found to have COVID 19 associated with worsening hypercarbic respiratory failure, requiring uptitration of BiPAP with back up rate. We were able to normalize his PH as well as decrease his CO2 with this. We will remain hopeful that we can continue to stave off intubation. Neuro - Encephalopathy secondary to hypercarbia CAM ICU: NEGATIVE - Patient is now awake, knows where he is and able to participate in conversation about care - Continue with supportive care at this time Cardiac - No acute needs at this time -Diurese as hemodynamics permit- may likely have component of PH and right sided failure secondary to his thoracic dynamics - Hold home antihypertensives at this time, until hemodynamics proven stable in light of diuresis Respiratory - COVID 19, hypercarbic respiratory failure, mixed restrictive/obstructive lung disease - Hypercarbic respiratory failure resulting in worsening of respiratory a cidosis- at this time we have improved his PH as well as CO2 decrease- Will need to continue support at night while sleeping with targeted volume and RR to maintain adequate minute ventilation. Currently 11-12 appears to be supporting him well - Wean BiPAP as able - Discussion should be had about further ventilatory failure - For his COVID- continue Decadron, Will schedule WILLARD, Schedule Pulmicort nebs BID, Consider adding LABA with Formoterol- if he remains BiPAP dependant - if able to wean BiPAP and has enough reserve to get his handhelds into his lungs can transition back to BREO or equivalent and WILLARD GI - WIll place on PPI, NPO for now until respiratory status is ore stable RENAL/LYTES - Hyposmolar hyponatremia, JORGE LUIS - hyponatremia in setting of COVID- likely related to decrease solute intake however may be related to pulmonary and or fluid volume status - diurese as above to assist with pulmonary mechanics - Rocha placed while requiring NIPPV support and diuresis ENDO - No acute needs, BG checks while receiving steroids- ICU hyperglycemic protocol goal <180mg/DL HEME - No acute needs ID - COVID 19- does not appear at this time to have bacterial infection a ssociated with this - NO obious opacity on CXR, PCT negative, WBC stable- - Will place on Azithromycin at this time - Defer Remdisivir use to hospitalist LINES/IV ACCESS - PIV, Rocha catheter Continue use of these lines DVT PROPHYLAXIS - SCDs, Heparin 5000 units sub q [id number] DISPO: ICU until ventilatory and oxygenation status are stabilized I have personally spent 50 minutes of critical care time in the direct management of this patient. This is a life/limb threatening event. This includes time spent evaluating patient, direct bedside care, chart review, placing orders, interpretation of diagnostic studies, discussion with consultants, patient, and family members, as well as other required patient management activities. This time is exclusive of all separately billable procedures, and separate from and in addition to any other critical care service time. Thank you for allowing us to participate in the care of this patient. Please refer to my attending physician's documentation for any further recommendations. Supervising Physician Co-Signing Physician Notes Patient seen and examined. MAR reviewed. Discussed with critical care LIBERTY as well as with bedside critical care nurse and on multidisciplinary rounds. Agree with assessment plan as noted. Patient has acute hypercarbic respiratory failure secondary to viral infection superimposed on severe restrictive lung disease secondary to thoracic cage abnormalities. He is improved this morning and is now off BiPAP. He is awake alert and conversant. At this point in time we will initiate PT OT get him out of bed. Will provide flutter valve and incentive spirometer. Continue supportive care regarding his COVID and would continue dexamethasone until oxygen requirement has resolved. No indication for remdesivir currently. Given the patient's severe restrictive physiology, he would likely benefit from nocturnal BiPAP. Will continue with this therapy and if he chooses clinical benefit, consideration for discharging the patient with a BiPAP unit. Otherwise would recommend outpatient polysomnography under the direction of his [facility] cooling tower technician. Patient's critical care issues appear resolved and he can likely transfer to the floor. 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 Patient came to the ER today for complaints of shortness of breath for a few days , he took a dose of Paxlovid. He was initiated on CPAP and then to BiPAP int he ER for hypercarbic respiratory acidosis. This has been refractory at this time. I was asked to evaluate the patient by the admitting team. Patient awakens and moves all extremities but he is encephalopathic, drowsy, but does move all extremities and follows commands. Patient has likely poor chance of getting off the ventilator once intubated secondary to his physiology and obesity. We will increase his minute vent ilation on the [place] BiPAP to 11-13. He is noted with chronic elevation of his HCO3 as well. He was given duonebs in the ER, 10 mg of Decadron, and remdisivir. He is with noted with coarse rhonchi throughout bilaterally. Would like to give the patient an opportunity to participate in discussion of his care, however he is unable to do so at this time secondary to encephalopathy. Will attempt to reach his again. Will bring to ICU with high likelihood he may need intubated on arrival. Will check VBG on arrival after increasing his back up rate as well as gradient. Was able to get in touch with his and update her, they have not discussed code status before or mechanical ventilation. We will update her clinically following recent VBG. On re-evaluation prior to coming to ICU, the patient is now awake, conversant and appropriate. He did not remember me coming in an hour earlier. I am hopeful that he responded and can continue with NIPPV for time being. Patient is able to discuss his wishes at this time and we will involve him in the decision CODE: FULL Allergies Allergy/AdvReac Type Severity Reaction Status Date / Time Gadolinium-Containing AdvReac Unknown Verified 07/20/24 23:46 Contrast Medi Home Medications Medication Instructions Recorded Confirmed Type albuterol sulfate 90 mcg/actuation 2 puff inhalation Q4 PRN 06/22/22 07/20/24 History aerosol inhaler .cough/wheezing aspirin 81 mg chewable tablet 81 mg PO DAILY 06/22/22 07/20/24 History fluticasone furoate 100 1 inh inhalation QAM 06/22/22 07/20/24 History mcg-vilanterol 25 mcg/dose inhalation powder (Breo Ellipta) latanoprost 0.005 % eye drops 1 drp OPL HS 06/22/22 07/20/24 History meloxicam 15 mg tablet 15 mg PO QAM 06/22/22 07/20/24 History montelukast 10 mg tablet 10 mg PO QAM 06/22/22 07/20/24 History rosuvastatin 5 mg tablet 5 mg PO QPM 06/22/22 07/20/24 History telmisartan 40 mg tablet 40 mg PO DAILY 06/22/22 07/20/24 History terazosin 2 mg capsule 2 mg PO HS 06/22/22 07/20/24 History amlodipine 2.5 mg tablet 2.5 mg PO QAM 07/20/24 07/20/24 History ipratropium 0.5 mg-albuterol 3 mg 3 ml inhalation Q6 PRN wheezing or 07/20/24 07/20/24 History (2.5 mg base)/3 mL nebulization dyspnea soln Patient History Medical History SOB (shortness of breath) 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 Asthma BPH (benign prostatic hyperplasia) HTN (hypertension) COPD (chronic obstructive pulmonary disease) with chronic bronchitis COPD (chronic obstructive pulmonary disease) Post poliomyelitis syndrome Nocturnal hypoxemia Allergic rhinitis Social History Smoking Status: Former smoker Second Hand Exposure: Yes; Do You Dip or Chew Tobacco: No; Hx Alcohol Use: Yes Alcohol type: wine Hx Substance Use: No Preferred Language: Swedish Communication Ability: Effective Dairy Equipment Specialist Required: No Beliefs That Will Affect Care: None Current Living Situation: Spouse Feels Safe at Home: Yes Safety Concerns: Feels Safe At This Time Assistive Devices: Cane Review of Systems Review of Systems: unable to perform secondary to encephalopathy Physical Exam Physical Exam: PHYSICAL EXAM: General: obtunded awakens with stimuli but drifts of to sleep mid sentence Head: Normocephalic, atraumatic ENT: PERRLA, EOMI, no pharyngeal exudate, mucous membranes dry Neuro: AO x1, grunts and shakes head yes, moves all extremities, was able to stand at the bedside prior to evaluation to urinate Chest: equal rise and fall of the chest, no accessory muscle use, no heaves or thrills, obese abdomen, with decreased chest rise and lung movement Cardiac: Regular rate and rhythm, telemetry reviewed- NSR no ectopy, skin warm dry, cap refill <3 seconds, peripheral pulses +2 no JVD, no murmur, trace peripheral edema GI: NABS x 4 quadrants, soft, nontender to palpation, no rebound, guarding or tenderness : Spontaneously voiding, no pain, no CVA tenderness, Skin: no rash or erythema Results & Data Results & Data Vital Signs (Past 12 Hours) Vital Signs Temp Pulse Pulse Resp BP BP Pulse Ox 07/21/24 01:58 66 18 118/64 98 07/21/24 01:20 71 07/21/24 00:36 101 H 20 98 07/20/24 23:36 99 H 19 97 07/20/24 22:41 100 H 18 143/76 H 94 07/20/24 21:35 114 H 27 H 96 07/20/24 21:34 118 H 20 98 07/20/24 21:14 117 H 28 H 94 07/20/24 20:58 93 07/20/24 20:58 120 H 28 H 93 07/20/24 20:58 38.0 C H 120 H 28 H 175/86 H 93 07/20/24 20:56 119 H O2 Del Method O2 Flow Rate FiO2 07/21/24 01:58 BiPAP 07/21/24 01:20 07/21/24 00:36 50 07/20/24 23:36 35 07/20/24 22:41 CPAP 35 07/20/24 21:35 40 07/20/24 21:34 Nasal Cannula 5 07/20/24 21:14 Nasal Cannula 6 07/20/24 20:58 Nasal Cannula 6 07/20/24 20:58 Nasal Cannula 6 07/20/24 20:58 Nasal Cannula 6 07/20/24 20:56 Laboratory Results Abnormal lab results 07/20/24 07/20/24 07/20/24 Range/Units 20:55 21:00 21:06 RBC 4.36 L (4.70-6.10) M/uL Hgb 11.4 L (14.0-18.0) g/dl Hct 34.6 L (42.0-52.0) % MCV 79.4 L (80.0-100.0) fL RDW Coeff of Blas 15.6 H (11.5-14.5) % Plt Count 108 L (130-400) K/uL MPV 9.3 L (9.4-12.4) fL Neut # (Auto) 8.52 H (1.40-6.50) K/uL Lymph # (Auto) 0.39 L (1.20-3.40) K/uL [place] # (Auto) 1.39 H (0.11-0.59) K/uL VBG pH (7.36-7.41) VBG pCO2 54 H (38-50) mmHg Sodium 126 L (136-145) mmol/L Chloride 90 L (98-107) mmol/L Creatinine 0.46 L (0.6-1.4) mg/dl BUN/Creatinine Ratio 28.3 H (10-20) Glucose 117 H (70-99(Fasting)) mg/dl POC Glucose (70-99) mg/dl Osmolality 259 L (280-300) mOsm/kg Calcium 8.3 L (8.6-10.3) mg/dl Globulin 2.3 L (2.5-4.0) gm/dl Lipase 10 L (11-82) U/L SARS-CoV-2 (PCR) DETECTED A (NotDetected) 07/21/24 07/21/24 Range/Units 00:52 01:35 RBC (4.70-6.10) M/uL Hgb (14.0-18.0) g/dl Hct (42.0-52.0) % MCV (80.0-100.0) fL RDW Coeff of Blas (11.5-14.5) % Plt Count (130-400) K/uL MPV (9.4-12.4) fL Neut # (Auto) (1.40-6.50) K/uL Lymph # (Auto) (1.20-3.40) K/uL [place] # (Auto) (0.11-0.59) K/uL VBG pH 7.29 L (7.36-7.41) VBG pCO2 58 H (38-50) mmHg Sodium (136-145) mmol/L Chloride (98-107) mmol/L Creatinine (0.6-1.4) mg/dl BUN/Creatinine Ratio (10-20) Glucose (70-99(Fasting)) mg/dl POC Glucose 132 H (70-99) mg/dl Osmolality (280-300) mOsm/kg Calcium (8.6-10.3) mg/dl Globulin (2.5-4.0) gm/dl Lipase (11-82) U/L SARS-CoV-2 (PCR) (NotDetected) Diagnostic Findings Chest X-Ray 07/20/24 21:06 Exam(s): XR CXR 1 VIEW EXAM: XR Chest, 1 View CLINICAL HISTORY: Reason for exam: Chest pain, nonspecific. TECHNIQUE: Frontal view of the chest. COMPARISON: 06/21/2022 FINDINGS: Lungs: See below. Pleural space: No pneumothorax. Heart: Unremarkable. No cardiomegaly. Mediastinum: Significant right hemithorax volume loss with left to right mediastinal shift. This is unchanged. No acute infiltrate. Trace left pleural effusion. Bones/joints: Unremarkable. No acute fracture. IMPRESSION: As above Electronically signed by: Benjamin Aguilar MD 07/20/24 23:38 PM Medications Administered Home Medications albuterol sulfate 90 mcg/actuation aerosol inhaler 2 puff inhalation Q4 PRN .cough/wheezing 06/22/22 [History Confirmed 07/20/24] aspirin 81 mg chewable tablet 81 mg PO DAILY 06/22/22 [History Confirmed 07/20/24] fluticasone furoate 100 mcg-vilanterol 25 mcg/dose inhalation powder (Breo Ellipta) 1 inh inhalation QAM 06/22/22 [History Confirmed 07/20/24] latanoprost 0.005 % eye drops 1 drp OPL HS 06/22/22 [History Confirmed 07/20/24] meloxicam 15 mg tablet 15 mg PO QAM 06/22/22 [History Confirmed 07/20/24] montelukast 10 mg tablet 10 mg PO QAM 06/22/22 [History Confirmed 07/20/24] rosuvastatin 5 mg tablet 5 mg PO QPM 06/22/22 [History Confirmed 07/20/24] telmisartan 40 mg tablet 40 mg PO DAILY 06/22/22 [History Confirmed 07/20/24] terazosin 2 mg capsule 2 mg PO HS 06/22/22 [History Confirmed 07/20/24] amlodipine 2.5 mg tablet 2.5 mg PO QAM 07/20/24 [History Confirmed 07/20/24] ipratropium 0.5 mg-albuterol 3 mg (2.5 mg base)/3 mL nebulization soln 3 ml inhalation Q6 PRN wheezing or dyspnea 07/20/24 [History Confirmed 07/20/24] ECG Additional Comments: Sinus tachycardia PossibleLeft atrial enlargement Borderline ECG When compared with ECG 18:26, No significant change was found Coding Level of Care Code 19337 CRITICAL CARE 1ST 30-74M Diagnoses Acute respiratory failure with hypoxia and hypercapnia J96.01; J96.02 Hyponatremia E87.1 COVID-19 U07.1 Acute respiratory failure with hypoxia J96.01 Severe scoliosis M41.9 Restrictive ventilatory defect R94.2
[2024-07-21] MEDS: FUROSEMIDE INJ 20 MG/2 ML VIAL IV STA (03:28)
[2024-07-21 03:47] LABS: Base Excess VBG 2.6 mEq/L; HCO3 VBG 30 mmol/L; PCO2 VBG 55 mmHg (38-50); PO2 VBG 77 mmHg; pH VBG 7.34 (7.36-7.41)
[2024-07-21] MEDS ORDERED: ALBUTEROL HFA 8 GM INHALER INH PRN (04:11)
[2024-07-21] MEDS ORDERED: ACETAMINOPHEN 1,000 MG/100 ML VIAL IV PRN (04:11)
[2024-07-21] MEDS ORDERED: NITROGLYCERIN SL 0.4 MG/TAB TAB SL PRN (04:11)
[2024-07-21] MEDS ORDERED: AZITHROMYCIN 500 MG VIAL IV ONE (04:48)
[2024-07-21 05:16] LABS: Albumin Level 3.9 gm/dl (3.4-5.0); BUN Creatinine Ratio 34.1 (10-20); Bilirubin Direct 0.1 mg/dl (0-0.2); Bilirubin,Total 0.6 mg/dl (0.2-1.0); Calcium 8.4 mg/dl (8.6-10.3); Creatinine Clr Calc Pharmacy 129.5 ml/min; Magnesium 1.7 mg/dl (1.7-2.4); Potassium 4.1 mmol/L (3.5-5.1); Total Protein 6.2 gm/dl (6.0-8.3)
[2024-07-21] MEDS: AZITHROMYCIN 250 MG TAB PO ONE (05:20)
[2024-07-21] MEDS: MAGNESIUM SULFATE / D5W 1 GM/100 ML BAG IV SCH (05:20)
[2024-07-21] MEDS: REMDESIVIR 200 MG in SODIUM CHLORIDE 0.9% 210 ML IV STA (05:20)
[2024-07-21] MEDS: HEPARIN SOD 5,000 UNIT/0.5 ML VIAL SQ SCH (05:21)
[2024-07-21 05:40] LABS: Basophils # (auto) 0.01 K/uL (0.00-0.20); Basophils % (auto) 0.1 %; Hematocrit (blood only) 35.1 % (42.0-52.0); Hemoglobin 11.3 g/dl (14.0-18.0); Immature Granulocytes # (auto) 0.07 K/uL (0.01-0.20); Immature Granulocytes % (auto) 0.5 %; Lymphocytes # (auto) 0.25 K/uL (1.20-3.40); Lymphocytes % (auto) 1.8 %; Mean Corpuscular Hemoglobin 25.6 pg (25.0-34.0); Mean Corpuscular Hgb Conc 32.2 g/dL (32.0-36.0); Mean Corpuscular Volume 79.4 fL (80.0-100.0); Mean Platelet Volume 9.5 fL (9.4-12.4); Monocytes # (auto) 0.56 K/uL (0.11-0.59); Neutrophils # (auto) 13.13 K/uL (1.40-6.50); Neutrophils % (auto) 93.6 %; Platelet Count 108 K/uL (130-400); RBC Morphology Unremarkable; RDW Coefficient of Variation 15.6 % (11.5-14.5); RDW Standard Deviation 44.7 fL (36.4-46.3); Red Blood Count 4.42 M/uL (4.70-6.10); White Blood Count 14.02 K/ul (4.8-10.8)
[2024-07-21] MEDS ORDERED: ALBUT/IPRATROP 3MG/0.5MG NEB 3 ML VIAL NEB SCH (07:00)
--- OUTSIDE RECORDS SUMMARY | 2024-07-21 07:42 | External Medical Summary | Summary of Care ---
Author Name Unknown Organization [facility] Address [address] [facility] [place] [address] Phone [phone] Care Team Providers Care Sustain Engineer Name Role Phone Elda Purvis Primary Care Provider Reason for Visit * Reason Comments Medication Administration Encounter Details Date Type Department Care Team (Late st Contact Info) Description 07/20/2024 9:30 AM EST Immunization/Inj ection [facility] [address] [facility] [place] [address] [facility] Kelli Cody [address] [facility] [place] [address] Arrived Allergies Active Allergy Reactions Criticality Noted Date Comments Gadolinium Derivatives 04/16/2021 documented as of this encounter (statuses as of 07/20/2024) Medications ASPIRIN 81 MG PO CHEWIndications: HTN, goal below 140/90 one coated aspirin by mouth daily 90 Tab 3 1 Active Desonide 0.05 % cream as directed by Dr. Pagan 30 g 5 5 Active latanoprost (XALATAN) 0.005 % ophthalmic solution INSTILL 1 DROP IN LEFT EYE AT BEDTIME 3 7 Active oxygen IN GAS Use as directed 2 L/min(Oxygen) at bedtime . Active Ketoconazole 2 % External Cream APPLY 1 APPLICATION TOPICALLY TWICE A DAY 3 Active Albuterol Sulfate HFA 108 (90 Base) MCG/ACT Inhalation Aerosol SolutionIndicati ons:Bronchitis, complicated Inhale 2 Puffs by mouth every 4 hours as needed for Wheezing or Cough. 54 g 1 3 Active Telmisartan 40 MG Oral Tablet (Micardis)Indica tions:HTN, goal below 150/90 TAKE 1 TABLET DAILY 90 Tablet 3 4 Active Meloxicam 15 MG Oral Tablet (Mobic)Indicatio ns:Dermatitis TAKE 1 TABLET IN THE MORNING 90 Tablet 3 4 Active Terazosin HCl 2 MG Oral CapsuleIndicatio ns:HTN, goal below 150/90 Take 1 Capsule by mouth in the morning. 90 Capsule 3 4 Active Rosuvastatin Calcium 5 MG Oral Tablet (Crestor)Indicat ions:Dyslipidemi a, goal LDL below 100 Take 1 Tablet by mouth in the morning. 90 Tablet 3 4 Active Triamcinolone Acetonide 0.1 % External Cream (Aristocort)Roxanna cations:Dermatit is Apply topically to affected area 2 times a day. To affected area. 45 g 3 4 Active Ipratropium-Albu terol 0.5-2.5 (3) MG/3ML Inhalation Solution (Duoneb)Indicati ons:Restrictive lung disease,Bronchit is, complicated,Mode rate persistent asthma without complication Inhale 3 mL via nebulizer every 6 hours as needed for Wheezing or Dyspnea. 120 mL 4 Active Azithromycin 250 MG Oral Tablet (Zithromax Z-Elio) Please take 500 mg by mouth on day one, followed by 250 mg by mouth for four days. 6 Tablet 4 Active Nystatin 813701 UNIT/ML Mouth/Throat Suspension Swish and swallow 5 mL 4 times a day as needed for Sore throat or Other (Thrush). 473 mL 4 Active Hydrocortisone 2.5 % External Cream Apply topically to affected area daily as needed for Other (dry eyElids). To affected area. 30 g 4 Active amLODIPine Besylate 2.5 MG Oral Tablet (Norvasc) TAKE 1 TABLET IN THE MORNING 90 Tablet 3 4 Active Montelukast Sodium 10 MG Oral Tablet (Singulair)Indic ations:Moderate persistent asthma without complication TAKE 1 TABLET IN THE MORNING 90 Tablet 3 4 Active Fluticasone Furoate-Vilanter ol 200-25 MCG/ACT Inhalation Aerosol Powder Breath Activated (BREO ellipta) Inhale 1 Puff by mouth in the morning. 1 puff daily. 60 Blister Dosing Unit 2 4 Active Hospital, Clinic, or Other Facility Administered Medication Ordered Dose Route Frequency Start Date End Date Status Vitamin B-12 (Cyanocobalamin) inj 1,000 mcgIndications:Vitamin B 12 deficiency 1000 mcg IM [id number] 03/12/2024 02/11/2025 Active Vitamin B-12 (Cyanocobalamin) inj 1,000 mcgIndications:Vitamin B 12 deficiency 1000 mcg IM [id number] 03/25/2024 02/24/2025 Active documented as of this encounter (statuses as of 07/20/2024) Active Problems Problem Noted Date Diagnosed Date Chronic hypoxemic respiratory failure 03/04/2024 Eyelid dermatitis, eczematous, unspecified later ality 03/04/2024 Lipoma of torso 03/04/2024 Chronic respiratory failure with hypoxia 024 Post-polio syndrome 06/13/2022 COVID-19 virus infection 03/15/2022 History of 2019 novel coronavirus disease (COVID -19) 03/15/2022 Overview (03/15/2022): 03/04 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 Alpha-1 ordered 12/31 TTE [facility] normal EF. Mild LVH. 01/28 colon WNL 2011 colon WNL, 2008 adenoma polyp. History of poliomyelitis 02/28/2017 Restrictive lung disease 02/28/2017 Overview (02/28/2017): From Polio BPH with obstruction/lower urinary tract symptom s 02/28/2017 Erectile dysfunction 02/28/2017 Hyperlipidemia 05/22/2015 HTN, goal below 150/90 05/17/2014 Thyroid nodule 05/17/2014 Overview (05/17/2014): Negative needle biopsy at [facility] 2013 HYPERTENSIVE HEART DZ 03/02/2009 Overview (03/02/2009): Per Heart Failure Taxonomy Protocol. Other allergic rhinitis Overview (05/06/2017): ICD-10 update of inactive term Idiopathic scoliosis Other atopic dermatitis Overview (05/06/2017): ICD-10 update of inactive term documented as of this encounter (statuses as of 07/20/2024) Resolved Problems Problem Noted Date Diagnosed Date Resolved Date COPD, group B, by GOLD 2017 classification 02/24/2023 03/04/2023 Overview: Per COPD GOLD Classification COPD exacerbation 11/28/2022 03/04/2023 COPD with chronic bronchitis 04/03/2020 08/16/2021 Dyslipidemia, goal LDL below 100 11/18/2010 05/22/2015 Benign neoplasm of colon 02/07/200904/2019 Overview (03/08/2009): adenomatous polyp, f/u in 3 yrs ADVANCE DIRECTIVE INFORMATION 01/18/2005 05/17/2024 Overview (01/18/2005): No, Advance Directive brochure given to patient at prior appointment. Screening for prostate cancer 10/02/2003 09/21/2008 Overview (09/21/2008): Resolved per Screening Diagnosis Protocol #6 HYPERTENSIVE HRT DIS NOS 03/18/2003 Overview (03/02/2009): Per Heart Failure Taxonomy Protocol. 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) 03/23/2019 Overview (09/24/2017): Right leg weakness, balance proble documented as of this encounter (statuses as of 07/20/2024) Immunizations Name Administration Dates Next Due COVID-19 mRNA, LNP-s, No Pre serve, 2-Dose Series (Moderna) 05/11/2021,09/18/2020,08/11/2020 COVID-19 mRNA, LNP-s, PF, 18 + or 6-11Yrs (Moderna) 10/11/2021 H1N1 2009 Influenza, IM 06/29/2009 Pneumococcal Conjugate Vacc, 13 Valent (Prevnar) 11/14/2014 Pneumococcal Polysaccharide PPV23 (Pneumovax) 05/11/2007 Seasonal Influenza Vac., MDV , IM, 0.5 mL (Fluzone) 03/22/2014,04/20/2013,04/28/2012,05/22,05/23/2010,05/11/2007 Seasonal Influenza, PF, 6 M & above, IM , (FluLaval or Fluzone) 03/27/2018 Seasonal Influenza, Quadriva lent Hd (Fluzone Hd) 04/02/2022,04/16/2021 Seasonal Influenza, Quadriva lent, No Preserve, IM 04/11/2020,04/13/2017,04/11/2016,05/04 Seasonal Influenza, Trivalen t, Adjuvanted, 65+ YRS, PF, (Fluad) 03/31/2019 TDAP (age 10 and older)(Boostrix) 02/28/2017 TDAP, Age 7 and older, IM (Adacel) 03/13/2006 Varicella Zoster Vaccine (Adult) 09/20/2011 Zoster Vaccine Recombinant (Shingrix) 04/05/2019 ,03/27/2018 documented as of this encounter Social History Tobacco Use Types Packs/Day Years Used Date Smoking Tobacco: Former Cigarettes 1 3 1 966 - 1969 Smokeless Tobacco: Never Alcohol Use Standard Drinks/Week Comments Yes 0 (1 standard drink = 0.6 oz pur e alcohol) 1-2 glass wine QD PHQ-2 Answer Date Recorded PHQ-2 Score -1 05/17/2018 Hunger Vital Sign Answer Date Recorded Within the past 12 months, y ou worried that your food would run out before you got the money to buy more. Never true 06/27/20 22 Within the past 12 months, t he food you bought just didn't last and you didn't have money to get more. 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 Not on file Not on file documented as of this encounter Plan of Treatment Upcoming Encounters Date Type Department Care Team (Late st Contact Info) Description 07/29/2024 10:00 AM EST Office Visit Pulmonary Medicine, [facility] [address] [facility] [place] [address] Daquan Peters MD [address] [place] [address] 08/16/2024 10:00 AM EST Immunization/Injec tion Ancillary [facility] [address] [facility] [place] [address] Rashi, Nurse [facility] [address] [facility] [place] [address] 09/07/2024 8:00 AM EST Office Visit Family Practice [facility] [address] [facility] [place] [address] Jarret Aponte DO [address] [facility] [place] [address] 09/13/2024 10:00 AM EST Immunization/Injec tion Ancillary [facility] [address] [place] [address] Nurse Clyde Markham [facility] [address] [facility] [address] 10/18/2024 10:00 AM EDT Immunization/Injec tion Ancillary [facility] [address] [facility] [place] [address] Nurse Clyde Markham [facility] [address] [facility] [place] [address] 12/16/2024 8:30 AM EDT Office Visit Cardiology, [facility] [address] [facility] [address] Petar Hernández MD [address] [place] [address] Health Maintenance Due Date Last Done Comments Adult Wellness Visit 2008 Depression Screening 03/27/2019 03/27/2018 COVID-19 Vaccine ( season) 2024 10/11/2021, 05/11/2021, 09/18/2020, Additional history exists Influenza Vaccine (FLU shot) (#1) 2024 04/24/2023, 04/02/2022, 04/16/2021, Additional history exists GFR 03/04/2025 03/04/2024, 09/12, 11/28/2022, Additional history exists Albumin/Creatinine Ratio 10/01/2026 024, 11/28/2022, 12/15/2014 DTap/Tdap Vaccines (3 - Td or Tdap) 02/28/2027 02/28/2017, 03/13/2006, 11/08/1994 Pneumococcal Vaccine: 50+ Years Completed 11/14/2014, 05/11/2007, 05/18/2001, Additional history exists Zoster Vaccines Completed 04/05/2019, 03/14, 09/20/2011 HPV (Gardasil) Vaccine Aged Out No lo nger eligible based on patient's age to complete this topic Hepatitis B Vaccine Aged Out No longe r eligible based on patient's age to complete this topic MENINGOCOCCAL (MENACTRA/MENVEO) Aged Out No longer eligible based on patient's age to complete this topic documented as of this encounter Medical Devices Not on filedocumented as of this encounter Administered Medications Active Administered Medications - up to 3 most recent administrations Medication Order MAR Action Action Date Dose Rate Site Vitamin B-12 (Cyanocobalamin) inj 1,000 mcg 1,000 mcg, Intramuscular, [id number], First dose on [place] 03/25/24 at 1330, Last dose on [place] 01/27/25 at 1330, For 12 dosesIndications:Vitam in B 12 deficiency Given 07/20/2024 9:47 AM EST 1,000 mcg Deltoid Left Upper Given 05/14/2024 10:38 AM EDT 1,000 mcg D eltoid Left Upper documented in this encounter Advance Directives Documents on File Type Date Recorded Patient Media Director Expl anation Advance Directives and Living Will 05/11/2007 Power of Safety Scientist 05/11/2007 Care Teams Sustain Engineer Relationship Specialty Start Date End Date Elda Purvis CRNP [address] [place] [address] PCP - General Nurse Practitioner 05/03/24 documented as of this encounter
--- OUTSIDE RECORDS SUMMARY | 2024-07-21 07:42 | External Medical Summary | Summary of Care ---
Author Name Unknown Organization [facility] Address [address] [place] [address] Phone [phone] Care Team Providers Care Sample Display Preparer Name Role Phone Jarret Aponte DO Primary Care Provider Reason for Visit * Reason Onset Date Comments Advice 07/20/2024 Covid + Encounter Details Date Type Department Care Team (Late st Contact Info) Description 07/20/2024 Telephone Family Practice [facility] [address] [place] [address] Elda Purvis CRNP [address] [facility] [place] [address] Advice (Covid +) Allergies Active Allergy Reactions Criticality Noted Date [...] four days. 6 Tablet 4 Active Nystatin 893438 UNIT/ML Mouth/Throat Suspension Swish and swallow 5 [...] 60 Blister Dosing Unit 2 4 Active Nirmatrelvir&Rit onavir 300/100 20 x 150 MG & 10 x 100MG Oral Tablet Therapy Pack (Paxlovid)Indica tions:COVID-19 virus infection Take 2 pink tablets of Nirmatrelvir and 1 white tablet of Ritonavir two times a day by mouth. 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 Alpha-1 ordered 12/31 TTE [facility] normal EF. Mild LVH. 01/28 colon WNL 2011 colon WNL, 2008 adenoma polyp. History of poliomyelitis 02/28/2017 Restrictive lung disease 02/28/2017 Overview (02/28/2017): From Polio BPH with obstruction/lower urinary tract symptom s 02/28/2017 Erectile dysfunction 02/28/2017 Hyperlipidemia 05/22/2015 HTN, goal below 150/90 05/17/2014 Thyroid nodule 05/17/2014 Overview (05/17/2014): Negative needle biopsy at [facility] 2013 HYPERTENSIVE HEART DZ 03/02/2009 Overview (03/02/2009): [...] Former Cigarettes 1 3 1 [phone] - [id number] Smokeless Tobacco: Never Alcohol Use Standard Drinks/Week [...] on file documented as of this encounter Miscellaneous Notes * Telephone Encounter - Marlena Ratliff LPN - 07/20/2024 10:46 AM EST S/w , aware that Paxlovid sent in. Ok to continue Albuterol neb treatments. Rescue kit, abx andprednisone on hand, but Paxlovid should help his symptoms. * Telephone Encounter - Jarret Aponte DO - 07/20/2024 10:23 AM EST Yes would advise paxlovid Placed order for it to pharmacy Thank you! * Telephone Encounter - Marlena Ratliff LPN - 07/20/2024 9:51 AM EST Pt came to office, masked for b12 injection, he was already was behind getting it. Asking if he should be on Paxlovid. Please see message below and advise. * Telephone Encounter - Marlena Bellamy OSA - 07/20/2024 8:08 AM EST Reason for patient call/what is patient requesting? Advice - patient started Z- elio last evening from his rescue kit due to compromised lungs but has not started the prednisone yet. Should he continuewith the rescue medications or start something else? Have you had symptoms of COVID-19 such as fever, sore throat, shortness of breath? COVID19 Symptoms:yes Date of first symptoms: 07/17 Date of last fever: doesn't know Date of last symptoms: still has sore throat; coughing up green/yellow mucous; body aches Have you had close exposure to someone who tested positive for COVID-19? COVID19 Exposure: no Date of first exposure: Date of last exposure: Testing location requested: Positive COVID 19 test in the past 90 days? Clinic Test no Home test yes Did you have 2 vaccines yes Boosters yes documented in this encounter Plan of Treatment Upcoming Encounters Date Type Department Care Team (Late st Contact Info) Description 07/29/2024 10:00 AM EST Office Visit Pulmonary Medicine, [address] [place] [address] Daquan Peters MD [address] [place] [id number] 08/16/2024 10:00 AM EST Immunization/Injec tion Ancillary [facility] [address] [facility] [place] [address] Nurse Rashi [address] [place] [address] 09/07/2024 8:00 AM EST Office Visit Family Practice [facility] [address] [facility] [place] [address] Jarret Aponte DO [address] [facility] [place] [address] 09/13/2024 10:00 AM EST Immunization/Injec tion Ancillary [facility] [address] [facility] [place] [address] Rashi Nurse Clyde Gaytans [address] [facility] [place] [address] 10/18/2024 10:00 AM EDT Immunization/Injec tion Ancillary [facility] [address] [facility] [place] [address] Nurse Clyde Markham [address] [facility] [place] [address] 12/16/2024 8:30 AM EDT Office Visit Cardiology, [facility] [address] [facility] [place] [address] Petar Hernández MD [address] [facility] [place] [address] Health Maintenance Due Date Last Done Comments Adult Wellness Visit 2008 Depression Screening 03/27/2019 03/27/2018 COVID-19 Vaccine ( season) 2024 10/11/2021, 05/11/2021, 09/18/2020, Additional history exists Influenza Vaccine (FLU shot) (#1) 2024 04/24/2023, 04/02/2022, 04/16/2021, Additional history exists GFR 03/04/2025 03/04/2024, /07/2023, 11/28/2022, Additional history exists Albumin/Creatinine Ratio 10/01/2026 [...] Not on filedocumented as of this encounter Visit Diagnoses Diagnosis COVID-19 virus infection- Primary documented in this encounter Advance Directives Documents on File Type Date Recorded Patient Upholstery Handler Expl anation Advance Directives and Living Will 05/11/2007 Power of Cafeteria Clerk 05/11/2007 Care Teams Sample Display Preparer Relationship Specialty Start Date End Date Jarret Aponte DO [address] [place] [address] PCP - General Family Medicine 07/20/24 documented as of this encounter
--- OUTSIDE RECORDS SUMMARY | 2024-07-21 07:43 | External Medical Summary | Summary of Care ---
Author Name Unknown Organization [facility] Address [address] [place] [facility] [place] [place] [address] Phone [phone] Care Team Providers Care Automatic Lump Making Machine Tender Name Role Phone Jan Aponteifrah Sequeirazion Primary Care Provider Reason for Visit * Reason Onset Date Comments Medication Refill 04/29/2024 Breo Encounter Details Date Type Department Care Team (Late st Contact Info) Description 04/29/2024 Refill Pulmonary Medicine Deb Omalley [address] [place] [phone] Daquan Alexis MD [address] [address] Allergies Active Allergy Reactions Criticality Noted Date Comments Gadolinium Derivatives 04/16/2021 documented as of this encounter (statuses as of 04/29/2024) Medications Medication Sig Dispensed Refills Start Date End Date Status ASPIRIN 81 MG PO CHEWIndications:HT N, goal below 140/90 one coated aspirin by mouth daily 90 Tab 3 08/09/2010 Active Desonide 0.05 % cream as directed by Dr. Pagan 30 g 5 05/22/2015 Active latanoprost (XALATAN) 0.005 % ophthalmic solution INSTILL 1 DROP IN LEFT EYE AT BEDTIME 3 12/10/2016 Active oxygen IN GAS Use as directed 2 L/min(Oxygen) at bedtime . Active Ketoconazole 2 % External Cream APPLY 1 APPLICATION TOPICALLY TWICE A DAY 07/18/2022 Active Albuterol Sulfate HFA 108 (90 Base) MCG/ACT Inhalation Aerosol SolutionIndication s:Bronchitis, complicated Inhale 2 Puffs by mouth every 4 hours as needed for Wheezing or Cough. 54 g 1 05/29/2023 Active Telmisartan 40 MG Oral Tablet (Micardis)Indicati ons:HTN, goal below 150/90 TAKE 1 TABLET DAILY 90 Tablet 3 07/23/2023 Active Meloxicam 15 MG Oral Tablet (Mobic)Indications :Dermatitis TAKE 1 TABLET IN THE MORNING 90 Tablet 3 08/19/2023 Active Terazosin HCl 2 MG Oral CapsuleIndications :HTN, goal below 150/90 Take 1 Capsule by mouth in the morning. 90 Capsule 3 08/20/2023 Active Rosuvastatin Calcium 5 MG Oral Tablet (Crestor)Indicatio ns:Dyslipidemia, goal LDL below 100 Take 1 Tablet by mouth in the morning. 90 Tablet 3 08/20/2023 Active Triamcinolone Acetonide 0.1 % External Cream (Aristocort)Indica tions:Dermatitis Apply topically to affected area 2 times a day. To affected area. 45 g 3 09/04/2023 Active Ipratropium-Albute rol 0.5-2.5 (3) MG/3ML Inhalation Solution (Duoneb)Indication s:Restrictive lung disease,Bronchitis , complicated,Modera te persistent asthma without complication Inhale 3 mL via nebulizer every 6 hours as needed for Wheezing or Dyspnea. 120 mL 10/27/2023 Active Azithromycin 250 MG Oral Tablet (Zithromax Z-Elio) Please take 500 mg by mouth on day one, followed by 250 mg by mouth for four days. 6 Tablet 01/27/2024 Active Fluticasone Propionate 50 MCG/ACT Nasal Suspension (Flonase)Indicatio ns:Other allergic rhinitis Administer 2 Sprays into each nostril in the morning and 2 Sprays in the evening. 3 Each 3 03/04/2024 4 Active Azelastine HCl 0.15 % Nasal Solution Administer 1 Bison into nostril in the morning and 1 Bison before bedtime. 30 mL 3 03/04/2024 Active Nystatin 571843 UNIT/ML Mouth/Throat Suspension Swish and swallow 5 mL 4 times a day as needed for Sore throat or Other (Thrush). 473 mL 03/04/2024 Active Hydrocortisone 2.5 % External Cream Apply topically to affected area daily as needed for Other (dry eyElids). To affected area. 30 g 03/04/2024 Active amLODIPine Besylate 2.5 MG Oral Tablet (Norvasc) TAKE 1 TABLET IN THE MORNING 90 Tablet 3 03/30/2024 Active Montelukast Sodium 10 MG Oral Tablet (Singulair)Indicat ions:Moderate persistent asthma without complication TAKE 1 TABLET IN THE MORNING 90 Tablet 3 03/30/2024 Active Fluticasone Furoate-Vilanterol 200-25 MCG/ACT Inhalation Aerosol Powder Breath Activated (BREO ellipta) Inhale 1 Puff by mouth in the morning. 1 puff daily. 60 Blister Dosing Unit 2 04/29/2024 Active Hospital, Clinic, or Other Facility Administered Medication Ordered Dose Route Frequency Start Date End Date Status Vitamin B-12 (Cyanocobalamin) inj 1,000 mcgIndications:Vitamin B 12 deficiency 1000 mcg IM [id number] 03/12/2024 02/11/2025 Active Vitamin B-12 (Cyanocobalamin) inj 1,000 mcgIndications:Vitamin B 12 deficiency 1000 mcg IM [id number] 03/25/2024 02/24/2025 Active documented as of this encounter (statuses as of 04/29/2024) Active Problems Problem Noted Date Diagnosed Date Chronic hypoxemic respiratory failure 03/04/2024 Eyelid dermatitis, eczematous, unspecified later ality 03/04/2024 Lipoma of torso 03/04/2024 Chronic respiratory failure with hypoxia 024 Post-polio syndrome 06/13/2022 COVID-19 virus infection 03/15/2022 History of 2019 novel coronavirus disease (COVID -19) 03/15/2022 Overview: 03/04 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 Alpha-1 ordered 12/31 TTE [facility] normal EF. Mild LVH. 01/28 colon WNL 2011 colon WNL, 2008 adenoma polyp. History of poliomyelitis 02/28/2017 Restrictive lung disease 02/28/2017 Overview: From Polio BPH with obstruction/lower urinary tract symptom s 02/28/2017 Erectile dysfunction 02/28/2017 Hyperlipidemia 05/22/2015 HTN, goal below 150/90 05/17/2014 Thyroid nodule 05/17/2014 Overview: Negative needle biopsy at [facility] 2013 HYPERTENSIVE HEART DZ 03/02/2009 Overview: Per Heart Failure Taxonomy Protocol. ADVANCE DIRECTIVE INFORMATION 01/18/2005 Overview: No, Advance Directive brochure given to patient at prior appointment. Other allergic rhinitis Overview: ICD-10 update of inactive term Idiopathic scoliosis Other atopic dermatitis Overview: ICD-10 update of inactive term documented as of this encounter (statuses as of 04/29/2024) Resolved Problems Problem Noted Date Diagnosed Date Resolved Date COPD, group B, by GOLD 2017 classification 02/24/2023 03/04/2023 Overview: Per COPD GOLD Classification COPD exacerbation 11/28/2022 03/04/2023 COPD with chronic bronchitis 04/03/2020 08/16/2021 Dyslipidemia, goal LDL below 100 11/18/2010 05/22/2015 Benign neoplasm of colon 02/07/200904/2019 Overview: adenomatous polyp, f/u in 3 yrs Screening for prostate cancer 10/02/2003 09/21/2008 Overview: Resolved per Screening Diagnosis Protocol #6 HYPERTENSIVE HRT DIS NOS 03/18/2003 Overview: Per Heart Failure Taxonomy Protocol. 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 Never true 06/27/2022 Utilities Answer Date Recorded Do you have trouble paying y our heating, water, or electric bill? (Adult - for ages 18 years and over) Not on file 12/30/2023 Is your family able to pay t he heat, water, or electric bill? (Household - for ages 0-17 years) Not on file 12/30/2023 Does your family have access to good internet? (Household - for ages 0-17 years) Not on file 12/30/2023 Social Connections Answer Date Recorded How often do you feel lonely or isolated from those around you? (Adult - for ages 18 years and over) Not on file 12/30/2023 Sex and Gender Information Value Date Recorded Sex Assigned at Male 03/14/2022 7:30 AM EDT Gender Identity Male 03/14/2022 7:30 AM EDT Sexual Orientation Straight 03/14/2022 7: 30 AM EDT Job Start Date Occupation Industry Not on file Not on file Not on file documented as of this encounter Miscellaneous Notes * Telephone Encounter - Daquan Alexis MD - 04/29/2024 4:28 PM EDT Signed Prescriptions: Disp Refills Fluticasone Furoate-Vilanterol 200-25 MCG/*60 Bli*2 Sig: Inhale1 Puff by mouth in the morning. 1 puff daily.Authorizing Provider: DAQUAN ALEXIS documented in this encounter Plan of Treatment Upcoming Encounters Date Type Department Care Team (Late st Contact Info) Description 05/14/2024 10:30 AM EDT Immunization/Injec tion Ancillary [facility] [address] [place] [address] Rashi Nurse Clyde Ross [address] [facility] [place] [address] 06/07/2024 4:00 PM EST Office Visit Cardiology, [facility] [address] [place] [address] Petar Hernández MD [address] [place] [address] 06/16/2024 10:30 AM EST Immunization/Injec tion Ancillary [facility] [address] [facility] [place] [address] Rashi Nurse Clyde Ross [address] [facility] [address] [place] [address] 07/29/2024 10:00 AM EST Office Visit Pulmonary Medicine, [facility] [address] [facility] [place] [address] [facility] [address] [facility] [address] 09/07/2024 8:00 AM EST Office Visit Family Practice [facility] [address] [place] [address] Jarret Aponte DO [address] [place] [address] Health Maintenance Due Date Last Done Comments [...] Tdap) 02/28/2027 02/28/2017, 03/13/2006, 11/08/1994 Pneumococcal Vaccine: 65+ Years Completed 11/14/2014, 05/11/2007, 05/18/2001, Additional history [...] Not on filedocumented as of this encounter Advance Directives Documents on File Type Date Recorded Patient Medical Assistant Internal Medicine Expl anation Advance Directives and Living Will 05/11/2007 Power of Manager Of Internal Audit 05/11/2007 Care Teams Automatic Lump Making Machine Tender Relationship Specialty Start Date End Date Jarret Aponte DO [address] [place] [address] PCP - General Family Medicine 05/20/22 documented as of this encounter
--- OUTSIDE RECORDS SUMMARY | 2024-07-21 07:43 | External Medical Summary | Summary of Care ---
Author Name Unknown Organization [facility] Address [address] [place] [address] Phone [phone] Care Team Providers Care Steam Station Supervisor Name Role Phone Elda Purvis Primary Care Provider Reason for Visit * Reason Comments Medication Administration Encounter Details Date Type Department Care Team (Late st Contact Info) Description 05/14/2024 10:30 AM EDT Immunization/I njection Ancillary [facility] [address] [facility] [address] [place]urse Clyde de [place] paz Cody [address] [place] [address] Vitamin B 12 deficiency [E53.8]* Allergies Active Allergy Reactions Criticality Noted Date Comments Gadolinium Derivatives 04/16/2021 documented as of this encounter (statuses as of 05/14/2024) Medications Medication Sig Dispensed Refills Start Date [...] in the evening. 3 Each 3 03/04/2024 Active Azelastine HCl 0.15 % Nasal Solution Administer 1 [place] into nostril in the morning and 1 [place] before bedtime. 30 mL 3 03/04/2024 Active Nystatin 805161 UNIT/ML Mouth/Throat Suspension Swish and swallow 5 [...] mcgIndications:Vitamin B 12 deficiency 1000 mcg IM [id number] 03/12/2024 02/11/2025 Active Vitamin B-12 (Cyanocobalamin) inj 1,000 mcgIndications:Vitamin B 12 deficiency 1000 mcg IM [id number] 03/25/2024 02/24/2025 Active documented as of this encounter (statuses as of 05/14/2024) Active Problems Problem Noted Date Diagnosed Date Chronic hypoxemic respiratory failure 03/04/2024 Eyelid dermatitis, eczematous, unspecified later ality 03/04/2024 Lipoma of torso 03/04/2024 Chronic respiratory failure with hypoxia 024 Post-polio syndrome 06/13/2022 COVID-19 virus infection 03/15/2022 History of 2019 novel coronavirus disease (COVID -19) 03/15/2022 Overview: 03/04 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 Alpha-1 ordered 12/31 TTE [facility] normal EF. Mild LVH. 01/28 colon WNL 2011 colon WNL, 2008 adenoma polyp. History of poliomyelitis 02/28/2017 Restrictive lung disease 02/28/2017 Overview: From Polio BPH with obstruction/lower urinary tract symptom s 02/28/2017 Erectile dysfunction 02/28/2017 Hyperlipidemia 05/22/2015 HTN, goal below 150/90 05/17/2014 Thyroid nodule 05/17/2014 Overview: Negative needle biopsy at [facility] 2013 HYPERTENSIVE HEART DZ 03/02/2009 Overview: Per Heart Failure Taxonomy Protocol. ADVANCE DIRECTIVE INFORMATION 01/18/2005 Overview: No, Advance Directive brochure given to patient at prior appointment. Other allergic rhinitis Overview: ICD-10 update of inactive term Idiopathic scoliosis Other atopic dermatitis Overview: ICD-10 update of inactive term documented as of this encounter (statuses as of 05/14/2024) Resolved Problems Problem Noted Date Diagnosed Date [...] as of this encounter (statuses as of 05/14/2024) Immunizations Name Administration Dates Next Due COVID-19 [...] Care Team (Late st Contact Info) Description 06/07/2024 4:00 PM EST Office Visit Cardiology, [facility] [address] [place] [address] Petar Hernández MD [address] [place] [address] 06/16/2024 10:30 AM EST Immunization/Injec tion Ancillary [facility] [address] [place] [address] [place], Nurse [facility] Kelli [facility] [address] [place] [address] 07/20/2024 9:30 AM EST Immunization/Injec tion Ancillary [facility] [address] [facility] [place] [address] Rashi, Nurse [facility] [address] [facility] [place] [address] 07/29/2024 10:00 AM EST Office Visit Pulmonary Medicine, [facility] [address] [facility] [place] [address] Daquan Peters MD [address] [place] [place] [address] 09/07/2024 8:00 AM EST Office Visit Family Practice [facility] [address] [facility] [place] [address] Jarret Aponte DO [address] [facility] [place] [address] Health Maintenance Due Date Last Done Comments [...] as of this encounter Visit Diagnoses Diagnosis Vitamin B 12 deficiency [E53.8]- Primary Other B-complex deficiencies documented in this encounter Administered Medications Active Administered Medications - up to 3 most recent administrations Medication Order MAR Action Action Date Dose Rate Site Vitamin B-12 (Cyanocobalamin) inj 1,000 mcg 1,000 mcg, Intramuscular, [id number], First dose on La 03/25/24 at 1330, Last dose on [place] 01/27/25 at 1330, For 12 doses Given 05/14/2024 10:38 AM EDT 1,000 mcg Deltoid Left Upper documented in this encounter Advance Directives Documents on File Type Date Recorded Patient Hydro Station Supervisor Expl anation Advance Directives and Living Will 05/11/2007 Power of Machine Operator Farmworker 05/11/2007 Care Teams Steam Station Supervisor Relationship Specialty Start Date End Date Elda Purvis CRNP [address] [address] PCP - General Nurse Practitioner 05/03/24 documented as of this encounter
--- OUTSIDE RECORDS SUMMARY | 2024-07-21 07:43 | External Medical Summary | Summary of Care ---
Author Name Unknown Organization [facility] Address [address] [place] [facility] [place] [address] Phone [phone] Care Team Providers Care Glass Presser Name Role Phone Elda Purvis Primary Care Provider Reason for Visit * Reason Comments Medication Administration Encounter Details Date Type Department Care Team (Late st Contact Info) Description 07/20/2024 9:30 AM EST [facility] [address] [place] [address] MarkhamNurse brain [facility] Kelli Cody [address] [place] [address] Arrived Allergies Active Allergy Reactions Criticality Noted [...] four days. 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 Alpha-1 ordered 12/31 TTE [facility] normal EF. Mild LVH. 01/28 colon WNL 2011 colon WNL, 2008 adenoma polyp. History of poliomyelitis 02/28/2017 Restrictive lung disease 02/28/2017 Overview (02/28/2017): From Polio BPH with obstruction/lower urinary tract symptom s 02/28/2017 Erectile dysfunction 02/28/2017 Hyperlipidemia 05/22/2015 HTN, goal below 150/90 05/17/2014 Thyroid nodule 05/17/2014 Overview (05/17/2014): Negative needle biopsy at [facility] 2013 HYPERTENSIVE HEART DZ 03/02/2009 Overview (03/02/2009): [...] 10:00 AM EST Office Visit Pulmonary Medicine, [facility] [address] [facility] [place] [address] Daquan Peters MD [address] [place] [address] 08/16/2024 10:00 AM EST Immunization/Injec tion Ancillary [facility] [address] [facility] [place] [address] Rashi, Nurse [facility] [address] [facility] [place] [address] 09/07/2024 8:00 AM EST Office Visit Family Practice [facility] [address] [facility] [place] [address] Jarret Aponte DO [address] [facility] [place] [address] 09/13/2024 10:00 AM EST Immunization/Injec tion Ancillary [facility] [address] [facility] [place] [address] Nurse Clyde [facility] [address] [facility] [place] [address] 10/18/2024 10:00 AM EDT Immunization/Injec tion Ancillary [facility] [address] [facility] [place] [address] Nurse Clyde [facility] [address] [facility] [place] [address] 12/16/2024 8:30 AM EDT Office Visit Cardiology, [facility] [address] [facility] [place] [address] Petar Hernández MD [address] [place] [address] Health Maintenance Due Date Last Done Comments [...] (Cyanocobalamin) inj 1,000 mcg 1,000 mcg, Intramuscular, [id number], First dose on La 03/25/24 at 1330, Last dose on La 01/27/25 at 1330, For 12 dosesIndications:Vitam in B 12 deficiency Given 07/20/2024 9:47 AM EST 1,000 mcg Deltoid Left Upper Given 05/14/2024 10:38 AM EDT 1,000 mcg D eltoid Left Upper documented in this encounter Advance Directives Documents on File Type Date Recorded Patient Sectional Belt Mold Assembler Expl anation Advance Directives and Living Will 05/11/2007 Power of Raw Mill Operator 05/11/2007 Care Teams Glass Presser Relationship Specialty Start Date End Date Elda Purvis CRNP [address] [place] [address] PCP - General Nurse Practitioner 05/03/24 documented as of this encounter
--- OUTSIDE RECORDS SUMMARY | 2024-07-21 07:43 | External Medical Summary | Summary of Care ---
Author Name Unknown Organization [facility] Address [address] [facility] [place] [address] Phone [phone] Care Team Providers Care Wafer Abrading Machine Tender Name Role Phone Jarret Aponte DO Primary Care Provider Reason for Visit * Reason Onset Date Comments Advice 01/14/2024 Medical conditio ns Encounter Details Date Type Department Care Team (Late st Contact Info) Description 01/14/2024 Telephone Family Practice [facility] [address] [place] [address] Jarret Aponte DO [address] [place] [address] Advice (Medical conditions) Allergies Active Allergy Reactions Criticality Noted Date Comments Gadolinium Derivatives 04/16/2021 documented as of this encounter (statuses as of 04/14/2024) Medications Medication Sig Dispensed Refills Start Date End Date Status ASPIRIN 81 MG PO CHEWIndications:HTN , goal below 140/90 one coated aspirin by [...] HFA 108 (90 Base) MCG/ACT Inhalation Aerosol SolutionIndications :Bronchitis, complicated Inhale 2 Puffs by mouth every 4 hours as needed for Wheezing or Cough. 54 g 1 05/29/2023 Active Telmisartan 40 MG Oral Tablet (Micardis)Indicatio ns:HTN, goal below 150/90 TAKE 1 TABLET DAILY 90 Tablet 3 07/23/2023 Active Meloxicam 15 MG Oral Tablet (Mobic)Indications: Dermatitis TAKE 1 TABLET IN THE MORNING 90 Tablet 3 08/19/2023 Active Terazosin HCl 2 MG Oral CapsuleIndications: HTN, goal below 150/90 Take 1 Capsule by mouth in the morning. 90 Capsule 3 08/20/2023 Active Rosuvastatin Calcium 5 MG Oral Tablet (Crestor)Indication s:Dyslipidemia, goal LDL below 100 Take 1 Tablet by mouth in the morning. 90 Tablet 3 08/20/2023 Active Triamcinolone Acetonide 0.1 % External Cream (Aristocort)Indicat ions:Dermatitis Apply topically to affected area 2 times a day. To affected area. 45 g 3 09/04/2023 Active Ipratropium-Albuter ol 0.5-2.5 (3) MG/3ML Inhalation Solution (Duoneb)Indications :Restrictive lung disease,Bronchitis, complicated,Moderat e persistent asthma without complication Inhale 3 mL via nebulizer every 6 hours as needed for Wheezing or Dyspnea. 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 Alpha-1 ordered 12/31 TTE [facility] normal EF. Mild LVH. 01/28 colon WNL 2011 colon WNL, 2008 adenoma polyp. 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 ADVANCE DIRECTIVE INFORMATION 01/18/2005 Overview: No, Advance Directive brochure given to patient at prior appointment. Other allergic rhinitis Overview: ICD-10 update of inactive term Idiopathic scoliosis Other atopic dermatitis Overview: ICD-10 update of inactive term documented as of this encounter (statuses as of 04/14/2024) Resolved Problems Problem Noted Date Diagnosed Date [...] as of this encounter (statuses as of 04/14/2024) Immunizations Name Administration Dates Next Due COVID-19 [...] encounter Miscellaneous Notes * Telephone Encounter - Paula Nolan LPN - 01/14/2024 10:37 AM EDT Patient calling in with some Medical Concerns. Viral infection and pulm issues Thinks he might have thrush, was using nebulizer for viral infection. He stated that he went to thedentist and the hygienist thinks that it could be from the Breo. Patient stated that he does not have COPD, He looked online and to understanding is that Breo is for COPD, he stopped using the medication a couple days ago. He stated that it's too soon to notice any changes from stopping the medication. He is asking if he could get a prescription of Nystatin for the thrush. 2. Patient stated that he has an O2 concentrator, he has had pulm issues for awhile. He wants to know how he can build himself back up to keep his O2 in the 90% range. He stated that he will take hisO2 off and do things around the house and he drops down to 88% or below, he wants to know how long he can stay in this range. He tried doing home exercises with weights, bands and walking. He wants to know if there is any pulmonary rehab/PT that would help with this. Transferred to [facility] as he wanted to make a follow up appt and discuss his medical concerns with their office as well. Please advise, Pharmacy selected. * Telephone Encounter - Ana Garcia OSA - 01/14/2024 10:33 AM EDT Reason for patient's call: pt would like to speak to nurse regarding ongoing medical conditions Caller was transferred to Paula at the nurse line. documented in this encounter Plan of Treatment Upcoming Encounters Date Type Department Care Team (Late st Contact Info) Description 05/14/2024 10:30 AM EDT Immunization/Injec tion Ancillary [facility] [address] [facility] [place] [address] Nurse Rashi [facility] [place] [address] [place] [address] 06/07/2024 4:00 PM EST [facility] [address] [facility] [place] [address] Petar Hernández MD [address] [facility] [place] [address] 06/16/2024 10:30 AM EST Immunization/Injec tion Ancillary [facility] [address] [facility] [place] [address] Rashi Nurse Clyde Pereira [facility] [address] [facility] [place] [address] 07/29/2024 10:00 AM EST Office Visit Pulmonary Medicine, [facility] [address] [facility] [place] [address] Daquan Peters MD [address] [place] [address] 09/07/2024 8:00 AM EST Office Visit Family Practice [facility] [address] [facility] [place] [address] Jarret Aponte DO [address] [facility] [place] [address] Health Maintenance Due Date Last Done Comments [...] Documents on File Type Date Recorded Patient Metal Handler Expl anation Advance Directives and Living Will 05/11/2007 Power of Rate Setter 05/11/2007 Care Teams Wafer Abrading Machine Tender Relationship Specialty Start Date End Date Jarret Aponte DO [address] [place] [address] PCP - General Family Medicine 05/20/22 documented as of this encounter
--- OUTSIDE RECORDS SUMMARY | 2024-07-21 07:44 | External Medical Summary ---
Author Name Unknown Address Unknown Organization [id number]:[facility] [place] - [address] [place] [address] Laboratory Report Ordering Provider Test Date Status JOAQUÍN GUEVARA 03/04/2024 10:44:54 Final Observation Date Value Abnormality Reference (Units ) Status Folic Acid 03/04/2024 10:44:54 15.5 >4.5 (ng/ mL) Final Performing Location [facility] - [address] [place] [address]
--- OUTSIDE RECORDS SUMMARY | 2024-07-21 07:44 | External Medical Summary | Summary of Care ---
Author Name Unknown Organization [facility] Address [address] [place] [facility] [place] [address] Phone [phone] Care Team Providers Care Sand Slinger Name Role Phone Jo Aponte DO Primary Care Provider Reason for Visit * Reason Comments eRx-Medication Refill Encounter Details Date Type Department Care Team (Late st Contact Info) Description 03/30/2024 Refill Family Practice [facility] [address] [place] [address] Jo Aponte DO [address] [place] [address] Moderate persistent asthma without complication Allergies Active Allergy Reactions Criticality Noted Date Comments Gadolinium Derivatives 04/16/2021 documented as of this encounter (statuses as of 03/30/2024) Medications Medication Sig Dispensed Refills Start Date End Date Status ASPIRIN 81 MG PO CHEWIndications:H TN, goal below 140/90 one coated aspirin by [...] HFA 108 (90 Base) MCG/ACT Inhalation Aerosol SolutionIndicatio ns:Bronchitis, complicated Inhale 2 Puffs by mouth every 4 hours as needed for Wheezing or Cough. 54 g 1 05/29/2023 Active Telmisartan 40 MG Oral Tablet (Micardis)Indicat ions:HTN, goal below 150/90 TAKE 1 TABLET DAILY 90 Tablet 3 07/23/2023 Active Meloxicam 15 MG Oral Tablet (Mobic)Indication s:Dermatitis TAKE 1 TABLET IN THE MORNING 90 Tablet 3 08/19/2023 Active Terazosin HCl 2 MG Oral CapsuleIndication s:HTN, goal below 150/90 Take 1 Capsule by mouth in the morning. 90 Capsule 3 08/20/2023 Active Rosuvastatin Calcium 5 MG Oral Tablet (Crestor)Indicati ons:Dyslipidemia, goal LDL below 100 Take 1 Tablet by mouth in the morning. 90 Tablet 3 08/20/2023 Active Triamcinolone Acetonide 0.1 % External Cream (Aristocort)Indic ations:Dermatitis Apply topically to affected area 2 times a day. To affected area. 45 g 3 09/04/2023 Active Ipratropium-Albut damaso 0.5-2.5 (3) MG/3ML Inhalation Solution (Duoneb)Indicatio ns:Restrictive lung disease,Bronchiti s, complicated,Moder ate persistent asthma without complication Inhale 3 mL via nebulizer every 6 hours as needed for Wheezing or Dyspnea. 120 mL 10/27/2023 Active Azithromycin 250 MG Oral Tablet (Zithromax Z-Elio) Please take 500 mg by mouth on day one, followed by 250 mg by mouth for four days. 6 Tablet 01/27/2024 Active Fluticasone Propionate 50 MCG/ACT Nasal Suspension (Flonase)Indicati ons:Other allergic rhinitis Administer 2 Sprays into each nostril in the morning and 2 Sprays in the evening. 3 Each 3 03/04/2024 06/02/20 24 Active Azelastine HCl 0.15 % Nasal Solution Administer 1 [place] into nostril in the morning and 1 [place] before bedtime. 30 mL 3 03/04/2024 06/02/20 24 Active Nystatin 234236 UNIT/ML Mouth/Throat Suspension Swish and swallow 5 [...] Active Montelukast Sodium 10 MG Oral Tablet (Singulair)Indica tions:Moderate persistent asthma without complication TAKE 1 TABLET IN THE MORNING 90 Tablet 3 03/30/2024 Active amLODIPine Besylate 2.5 MG Oral Tablet (Norvasc) Take 1 Tablet by mouth in the morning. 90 Tablet 1 08/21/2023 03/30/20 24 Discontinued Montelukast Sodium 10 MG Oral Tablet (Singulair)Indica tions:Moderate persistent asthma without complication Take 1 Tablet by mouth in the morning. 90 Tablet 1 08/21/2023 03/30/20 24 Discontinued Hospital, Clinic, or Other Facility Administered Medication Ordered Dose Route Frequency Start Date End Date Status Vitamin B-12 (Cyanocobalamin) inj 1,000 mcgIndications:Vitamin B 12 deficiency 1000 mcg IM [id number] 03/12/2024 02/11/2025 Active Vitamin B-12 (Cyanocobalamin) inj 1,000 mcgIndications:Vitamin B 12 deficiency 1000 mcg IM [id number] 03/25/2024 02/24/2025 Active documented as of this encounter (statuses as of 03/30/2024) Active Problems Problem Noted Date Diagnosed Date Chronic hypoxemic respiratory failure 03/04/2024 Eyelid dermatitis, eczematous, unspecified later ality 03/04/2024 Lipoma of torso 03/04/2024 Chronic respiratory failure with hypoxia 024 Post-polio syndrome 06/13/2022 COVID-19 virus infection 03/15/2022 History of 2019 novel coronavirus disease (COVID -19) 03/15/2022 Overview: 03/04 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 Alpha-1 ordered 12/31 TTE [facility] normal EF. Mild LVH. 01/28 colon WNL 2011 colon WNL, 2008 adenoma polyp. History of poliomyelitis 02/28/2017 Restrictive lung disease 02/28/2017 Overview: From Polio BPH with obstruction/lower urinary tract symptom s 02/28/2017 Erectile dysfunction 02/28/2017 Hyperlipidemia 05/22/2015 HTN, goal below 150/90 05/17/2014 Thyroid nodule 05/17/2014 Overview: Negative needle biopsy at [facility] 2013 HYPERTENSIVE HEART DZ 03/02/2009 Overview: Per Heart Failure Taxonomy Protocol. ADVANCE DIRECTIVE INFORMATION 01/18/2005 Overview: No, Advance Directive brochure given to patient at prior appointment. Other allergic rhinitis Overview: ICD-10 update of inactive term Idiopathic scoliosis Other atopic dermatitis Overview: ICD-10 update of inactive term documented as of this encounter (statuses as of 03/30/2024) Resolved Problems Problem Noted Date Diagnosed Date [...] as of this encounter (statuses as of 03/30/2024) Immunizations Name Administration Dates Next Due COVID-19 mRNA, LNP-s, No Pre serve, 2-Dose Series (Moderna) 05/11/2021,09/18/2020,08/11/2020 COVID-19 mRNA, LNP-s, PF, 18 + or 6-11Yrs (Moderna) 10/11/2021 H1N1 2009 Influenza, IM 06/29/2009 Pneumococcal Conjugate Vacc, 13 Valent (Prevnar) 11/14/2014 Pneumococcal Polysaccharide PPV23 (Pneumovax) 05/11/2007 Seasonal Influenza, PF, 6 M & above, IM , (FluLaval or Fluzone) 03/27/2018 Seasonal Influenza, Quadriva lent Hd (Fluzone Hd) 04/02/2022,04/16/2021 Seasonal Influenza, Quadriva lent, No Preserve, IM 04/11/2020,04/13/2017,04/11/2016,05/04 Seasonal Influenza, Trivalen t, (IIV3), with Preserv, (Fluzone) 03/22/2014,04/20/2013,04/28/2012,05/22,05/23/2010,05/11/2007 Seasonal Influenza, Trivalen t, Adjuvanted, 65+ YRS, [...] encounter Miscellaneous Notes * Telephone Encounter - Aditya Raman, [facility] - 03/30/2024 4:51 PM EDT Signed Prescriptions: Disp Refills amLODIPine Besylate 2.5 MG Oral Tablet (No*90 Tab*3 Sig: TAKE 1 TABLET IN THE MORNINGAuthorizing Provider: JO APONTE User: ADITYA ARMAN Montelukast Sodium 10 MG Oral Tablet (Sing*90 Tab*3 Sig: TAKE 1 TABLET IN THE MORNINGAuthorizing Pr ovider: JO APONTE User: ADITYA RAMAN documented in this encounter Plan of Treatment Upcoming Encounters Date Type Department Care Team (Late st Contact Info) Description 04/14/2024 10:00 AM EDT Immunization/Injec tion Ancillary [facility] [address] [place] [address] Rashi Nurse [facility] [address] [place] [address] 06/07/2024 4:00 PM EST Office Visit Cardiology, [facility] [address] [place] [address] Petar Hernández MD [address] [place] [address] 07/29/2024 10:00 AM EST Office Visit Pulmonary Medicine, [facility] [address] [place] [address] Daquan Peters MD [address] [facility] [address] 09/07/2024 8:00 AM EST Office Visit Family Practice [facility] [address] [place] [address] Jo Aponte DO [address] [place] [address] Health Maintenance Due Date Last Done Comments Adult Wellness Visit 2008 Depression Screening 03/27/2019 03/27/2018 COVID-19 Vaccine ( season) 2024 10/11/2021, 05/11/2021, 09/18/2020, Additional history exists Influenza Vaccine (FLU shot) (#1) 2024 04/24/2023, 04/02/2022, 04/16/2021, Additional history exists GFR 03/04/2025 03/04/2024, 0307/2023, 11/28/2022, Additional history exists Albumin/Creatinine Ratio 10/01/2026 [...] as of this encounter Visit Diagnoses Diagnosis Moderate persistent asthma without complication Unspecified asthma documented in this encounter Advance Directives Documents on File Type Date Recorded Patient Citrix Administrator Expl anation Advance Directives and Living Will 05/11/2007 Power of Returning Officer 05/11/2007 Care Teams Sand Slinger Relationship Specialty Start Date End Date Jo Aponte DO [address] [place] [address] PCP - General Family Medicine 05/20/22 documented as of this encounter
--- OUTSIDE RECORDS SUMMARY | 2024-07-21 07:44 | External Medical Summary | Summary of Care ---
Author Name Unknown Organization [facility] Address [address] [facility] [address] Phone [phone] Care Team Providers Care Window Shade Installer Name Role Phone Jarret Aponte DO Primary Care Provider Reason for Visit * Reason Onset Date Comments Encounter Created in Error 03/11/2024 Encounter Details Date Type Department Care Team (Late st Contact Info) Description 03/11/2024 Telephone Family Practice [facility] [address] [place] [address] Jarret Aponte DO [address] [place] [address] Encounter Created in Error Allergies Active Allergy Reactions Criticality Noted Date Comments Gadolinium Derivatives 04/16/2021 documented as of this encounter (statuses as of 03/11/2024) Medications Medication Sig Dispensed Refills Start Date [...] the morning. 90 Capsule 3 08/20/2023 Active amLODIPine Besylate 2.5 MG Oral Tablet (Norvasc) Take 1 Tablet by mouth in the morning. 90 Tablet 1 08/21/2023 Active Montelukast Sodium 10 MG Oral Tablet (Singulair)Indicati ons:Moderate persistent asthma without complication Take 1 Tablet by mouth in the morning. 90 Tablet 1 08/21/2023 Active Rosuvastatin Calcium 5 MG Oral Tablet [...] Active Fluticasone Propionate 50 MCG/ACT Nasal Suspension (Flonase)Indication s:Other allergic rhinitis Administer 2 Sprays into each nostril in the morning and 2 Sprays in the evening. 3 Each 3 03/04/2024 06/02/2024 Active Azelastine HCl 0.15 % Nasal Solution Administer 1 Glide into nostril in the morning and 1 Glide before bedtime. 30 mL 3 03/04/2024 06/02/2024 Active Nystatin 154216 UNIT/ML Mouth/Throat Suspension Swish and swallow 5 mL 4 times a day as needed for Sore throat or Other (Thrush). 473 mL 03/04/2024 Active Hydrocortisone 2.5 % External Cream Apply topically to affected area daily as needed for Other (dry eyElids). To affected area. 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 Alpha-1 ordered 12/31 TTE [facility] normal EF. Mild LVH. 01/28 colon WNL 2011 colon WNL, 2009 adenoma polyp. History of poliomyelitis 02/28/2017 Restrictive lung disease 02/28/2017 Overview: From Polio BPH with obstruction/lower urinary tract symptom s 02/28/2017 Erectile dysfunction 02/28/2017 Hyperlipidemia 05/22/2015 HTN, goal below 150/90 05/17/2014 Thyroid nodule 05/17/2014 Overview: Negative needle biopsy at [facility] 2013 HYPERTENSIVE HEART DZ 03/02/2009 Overview: Per Heart Failure Taxonomy Protocol. ADVANCE DIRECTIVE INFORMATION 01/18/2005 Overview: No, Advance Directive brochure given to patient at prior appointment. Other allergic rhinitis Overview: ICD-10 update of inactive term Idiopathic scoliosis Other atopic dermatitis Overview: ICD-10 update of inactive term documented as of this encounter (statuses as of 03/11/2024) Resolved Problems Problem Noted Date Diagnosed Date [...] as of this encounter (statuses as of 03/11/2024) Immunizations Name Administration Dates Next Due COVID-19 [...] encounter Miscellaneous Notes * Telephone Encounter - Yolanda Clemente LPN - 03/11/2024 9:40 AM EDT error documented in this encounter Plan of Treatment Upcoming Encounters Date Type Department Care Team (Late st Contact Info) Description 06/07/2024 4:00 PM EST Office Visit Cardiology, [facility] [address] [place] [address] Petar Hernández MD [address] [place] [address] 07/29/2024 10:00 AM EST Office Visit Pulmonary Medicine, [facility] [address] [place] [address] Daquan Peters MD [address] [place] [address] 09/07/2024 8:00 AM EST Office Visit Family Practice [facility] [address] [place] [address] Jarret Aponte DO [address] [place] [address] Health Maintenance Due Date Last Done Comments Adult Wellness Visit 2008 Depression Screening 03/27/2019 03/27/2018 COVID-19 Vaccine ( season) 2023 10/11/2021, 05/11/2021, 09/18/2020, Additional history exists Influenza Vaccine (FLU shot) (#1) 2024 04/24/2023, 04/02/2022, 04/16/2021, Additional history exists GFR 03/04/2025 03/04/2024, 03/07/2023, 11/28/2022, Additional history exists Albumin/Creatinine Ratio 10/01/2026 [...] Documents on File Type Date Recorded Patient Whiskey Regauger Expl anation Advance Directives and Living Will 05/11/2007 Power of Clinical Data Assistant 05/11/2007 Care Teams Window Shade Installer Relationship Specialty Start Date End Date Jarret Aponte DO [address] [place] [address] PCP - General Family Medicine 05/20/22 documented as of this encounter
--- OUTSIDE RECORDS SUMMARY | 2024-07-21 07:44 | External Medical Summary | Summary of Care ---
Author Name Unknown Organization [facility] Address [address] [place] [address] Phone [phone] Care Team Providers Care Preparation Department Supervisor Name Role Phone Jarret Aponte DO Primary Care Provider Reason for Visit * Reason Comments Re-Check Encounter Details Date Type Department Care Team (Latest Contact Info) Description 03/04/2024 9:40 AM EDT Office Visit Family [facility] [address] [place] [phone] Elda Purvis CRNP [address] [place] [address] Restrictive lung disease*; Neuromuscular scoliosis of cervicothoracic region; Chronic hypoxemic respiratory failure (HCC); Eyelid dermatitis, eczematous, unspecified laterality; Lipoma of torso; Other allergic rhinitis; HTN, goal below 150/90; Iron deficiency anemia, unspecified iron deficiency anemia type; Chronic respiratory failure with hypoxia (HCC) Allergies Active Allergy Reactions Criticality Noted Date Comments Gadolinium Derivatives 04/16/2021 documented as of this encounter (statuses as of 03/04/2024) Medications Medication Sig Dispensed Refills Start Date End Date Status ASPIRIN 81 MG PO CHEWIndications: HTN, goal [...] the morning. 90 Capsule 3 4 Active amLODIPine Besylate 2.5 MG Oral Tablet (Norvasc) Take 1 Tablet by mouth in the morning. 90 Tablet 1 4 Active Montelukast Sodium 10 MG Oral Tablet (Singulair)Indic ations:Moderate persistent asthma without complication Take 1 Tablet by mouth in the morning. 90 Tablet 1 4 Active Rosuvastatin Calcium 5 MG Oral [...] for four days. 6 Tablet 4 Active Fluticasone Propionate 50 MCG/ACT Nasal Suspension (Flonase)Indicat ions:Other allergic rhinitis Administer 2 Sprays into each nostril in the morning and 2 Sprays in the evening. 3 Each 3 4 06/02/20 24 Active Azelastine HCl 0.15 % Nasal Solution Administer 1 [place] into nostril in the morning and 1 [place] before bedtime. 30 mL 3 4 06/02/20 24 Active Nystatin 453506 UNIT/ML Mouth/Throat Suspension Swish and swallow 5 mL 4 times a day as needed for Sore throat or Other (Thrush). 473 mL 4 Active Fluconazole 150 MG Oral Tablet (Diflucan) Take 1 Tablet by mouth once for 1 dose. REPEAT AFTER 1 WEEK 2 Tablet 4 03/04/20 24 Active Hydrocortisone 2.5 % External Cream Apply topically to affected area daily as needed for Other (dry eyElids). To affected area. 30 g 4 Active Tadalafil 5 MG Oral Tablet (Cialis)Indicati ons:BPH with obstruction/lowe r urinary tract symptoms,Erectil e dysfunction, unspecified erectile dysfunction type TAKE 1 TABLET DAILY FOR BENIGN PROSTATIC HYPERPLASIA, CAN TAKE 5 TO 15 MG EXTRA AT LEAST 30 MINUTES PRIOR TO SEX, DAILY NEEDED Strength: 5 mg 90 Tablet 1 3 03/04/20 24 Discontinued predniSONE 10 MG Oral Tablet (Deltasone)Indic ations:Restricti ve lung disease Take 5 tabs for 2 days, 4 tabs for 2 days, 3 tabs for 2 days, 2 tabs for 2 days 1 tab for 2 days 30 Tablet 4 03/04/20 24 Discontinued Azithromycin 250 MG Oral Tablet (Zithromax)Indic ations:Restricti ve lung disease Take 2 tabs by mouth on the first day, then 1 tab daily on days two through five 6 Tablet 4 03/04/20 24 Discontinued methylPREDNISolo ne 4 MG Oral Tablet Therapy Pack (Medrol Dosepack) follow package directions 21 Tablet 4 03/04/20 24 Discontinued Fluticasone Propionate 50 MCG/ACT Nasal Suspension (Flonase)Indicat ions:Other allergic rhinitis Administer 2 Sprays into each nostril in the morning and 2 Sprays in the evening. 3 Each 3 4 03/04/20 24 Discontinued(Ref ill) Nystatin 845072 UNIT/ML Mouth/Throat Suspension Swish and swallow 5 mL 4 times a day as needed for Sore throat or Other (Thrush) for up to 24 days. 473 mL 4 03/04/20 24 Discontinued(Ref ill) documented as of this encounter (statuses as of 03/04/2024) Active Problems Problem Noted Date Diagnosed Date Chronic hypoxemic respiratory failure 03/04/2024 Eyelid dermatitis, eczematous, unspecified later ality 03/04/2024 Lipoma of torso 03/04/2024 Chronic respiratory failure with hypoxia 024 Post-polio syndrome 06/13/2022 COVID-19 virus infection 03/15/2022 History of 2019 novel coronavirus disease (COVID -19) 03/15/2022 Overview: 03/04 Neuromuscular scoliosis of cervicothoracic regio n 08/16/2021 Nocturnal hypoxemia 04/03/2020 Overview: [facility] pulm History of colon polyps 03/23/2019 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 Alpha-1 ordered 12/31 TTE [facility] normal EF. Mild LVH. 01/28 colon WNL 2011 colon WNL, 2009 adenoma polyp. History of poliomyelitis 02/28/2017 Restrictive lung disease 02/28/2017 Overview: From Polio BPH with obstruction/lower urinary tract symptom s 02/28/2017 Erectile dysfunction 02/28/2017 Hyperlipidemia 05/22/2015 HTN, goal below 150/90 05/17/2014 Thyroid nodule 05/17/2014 Overview: Negative needle biopsy at [facility] 2013 HYPERTENSIVE HEART DZ 03/02/2009 Overview: Per Heart Failure Taxonomy Protocol. ADVANCE DIRECTIVE INFORMATION 01/18/2005 Overview: No, Advance Directive brochure given to patient at prior appointment. Other allergic rhinitis Overview: ICD-10 update of inactive term Idiopathic scoliosis Other atopic dermatitis Overview: ICD-10 update of inactive term documented as of this encounter (statuses as of 03/04/2024) Resolved Problems Problem Noted Date Diagnosed Date [...] as of this encounter (statuses as of 03/04/2024) Immunizations Name Administration Dates Next Due COVID-19 [...] lent, No Preserve, IM 04/11/2020,04/13/2017,04/11/2016,05/04 Seasonal Influenza, Split, I IV3, With Preserve, Inj 03/22/2014,04/20/2013,04/28/2012,05/22,05/23/2010,05/11/2007 Seasonal Influenza, Trivalen t, Adjuvanted, 65+ yrs 03/31/2019 TDAP (age 10 and older)(Boostrix) 02/28/2017 [...] on file documented as of this encounter Last Filed Vital Signs Vital Sign Reading Time Taken Comments Blood Pressure 138/68 03/04/2024 9:43 AM EDT Pulse 77 03/04/2024 9:43 AM EDT Temperature - - Respiratory Rate - - Oxygen Saturation - - Inhaled Oxygen Concentration - - Weight 68.7 kg (151 lb 8 oz) 03/04/2024 9:43 AM EDT Height - - Body Mass Index 26.84 01/27/2024 3:23 PM EDT documented in this encounter Progress Notes * Elda Purvis CRNP - 03/04/2024 9:50 AM EDT Images from the original note were not included. FOLLOW UP History of Present Illness: Ever Louie is a 83 year old male presenting for 6 month follow up accompanied by his today. Chronic respiratory failure with hypoxia. Still with sob but not worse. Recent 6mwt-CONFIRMED need for 2lpm with exertion. He uses POC that he bough. Sometimes uses and with slow walk he can maintainaround 90% He has had thrush caused by breo that he stopped. He saw pulm and noted not to have copd or asthma.Treated recently with nystatin 38 days. Still feeling burnt tongue issue. Seems worse later in the day. Off of breo for the last 3 weeks Skin lesion right upper back- evaluated in the past evaluated. Unsure if getting bigger. 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 Pagan 30 g 5 latanoprost (XALATAN) 0.005 % ophthalmic solution INSTILL 1 DROP IN LEFT EYE AT BEDTIME 3 oxygen IN GAS Use as directed 2 L/min(Oxygen) at bedtime . Ketoconazole 2 % External Cream APPLY 1 APPLICATION TOPICALLY TWICE A DAY Tadalafil 5 MG Oral Tablet (Cialis) TAKE 1 TABLET DAILY FOR BENIGN PROSTATIC HYPERPLASIA, CAN TAKE 5 TO 15 MG EXTRA AT LEAST 30 MINUTES PRIOR TO SEX, DAILY NEEDED Strength: 5 mg 90 Tablet 1 Albuterol Sulfate HFA 108 (90 Base) MCG/ACT Inhalation Aerosol Solution Inhale 2 Puffs by mouth every 4 hours as needed for Wheezing or Cough. 54 g 1 Telmisartan 40 MG Oral Tablet (Micardis) TAKE 1 TABLET DAILY 90 Tablet 3 Meloxicam 15 MG Oral Tablet (Mobic) TAKE 1 TABLET IN THE MORNING 90 Tablet 3 Terazosin HCl 2 MG Oral Capsule Take 1 Capsule by mouth in the morning. 90 Capsule 3 amLODIPine Besylate 2.5 MG Oral Tablet (Norvasc) Take 1 Tablet by mouth in the morning. 90 Tablet 1 Montelukast Sodium 10 MG Oral Tablet (Singulair) Take 1 Tablet by mouth in the morning. 90 Tablet 1 Rosuvastatin Calcium 5 MG Oral Tablet (Crestor) Take 1 Tablet by mouth in the morning. 90 Tablet 3 Triamcinolone Acetonide 0.1 % External Cream (Aristocort) Apply topically to affected area 2 times a day. To affected area. 45 g 3 predniSONE 10 MG Oral Tablet (Deltasone) Take 5 tabs for 2 days, 4 tabs for 2 days, 3 tabs for 2 days, 2 tabs for 2 days 1 tab for 2 days 30 Tablet 0 Azithromycin 250 MG Oral Tablet (Zithromax) Take 2 tabs by mouth on the first day, then 1 tab dailyon days two through five 6 Tablet 0 Ipratropium-Albuterol 0.5-2.5 (3) MG/3ML Inhalation Solution (Duoneb) Inhale 3 mL via nebulizer every 6 hours as needed for Wheezing or Dyspnea. 120 mL 0 Azithromycin 250 MG Oral Tablet (Zithromax Z-Elio) Please take 500 mg by mouth on day one, followed by 250 mg by mouth for four days. 6 Tablet 0 methylPREDNISolone 4 MG Oral Tablet Therapy Pack (Medrol Dosepack) follow package directions 21 Tablet 0 Fluticasone Propionate 50 MCG/ACT Nasal Suspension (Flonase) Administer 2 Sprays into each nostril in the morning and 2 Sprays in the evening. 3 Each 3 No current facility-administered medications for this visit. Review of patient's allergies indicates: Allergen Reactions Gadolinium Derivatives Past Surgical History: Procedure Laterality Date COLONOSCOPY THRU STOMA, W/BIOPSY 02/07/09 adenomatous polyp, f/u in 3 yrs COLONOSCOPY, DIAGNOSTIC (RECTUM) 02/03/2018 normal/[facility] COLONOSCOPY, GI REFERRAL OP 2003 wnl COLORECTAL CANCER SCREEN;W/FLE 08/02/98 WNL HUMERAL FRACTURE W/ INTERNAL FIXATION Humerus Open Rx Prox Fx SPINAL FUSION, 6 OR LESS VERT, POST scoliosis in high school--bone graft Review of Systems: Review of Systems Constitutional: Negative for fatigue and fever. Respiratory: Positive for shortness of breath. Negative for cough and wheezing. Cardiovascular: Positive for leg swelling. Negative for chest pain and palpitations. Gastrointestinal: Negative for abdominal pain. Skin: Positive for wound. Negative for color change. Neurological: Negative for dizziness and syncope. Psychiatric/Behavioral: Negative for sleep disturbance. Physical Exam: BP 138/68 | Pulse 77 | Wt 68.7 kg (151 lb 8 oz) | BMI 26.84 kg/m | BSA 1.75 m Physical Exam HENT: Head: Normocephalic. Comments: No scaling today Cardiovascular: Rate and Rhythm: Normal rate and regular rhythm. Pulmonary: Effort: Pulmonary effort is normal. Breath sounds: Decreased breath sounds present. Chest: Chest wall: Deformity present. Musculoskeletal: Thoracic back: Deformity present. Scoliosis present. Skin: Comments: 6 X7 SQ MASS- SOFT AND NONTENDER Neurological: Mental Status: He is alert and oriented to person, place, and time. Psychiatric: Mood and Affect: Mood normal. Speech: Speech normal. Behavior: Behavior normal. Behavior is cooperative. Thought Content: Thought content normal. Cognition and Memory: Cognition and memory normal. Judgment: Judgment normal. Assessment and Plan: 1. 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 Bronchiectasis OFF OF BREO Can use albuterol hfa Consider flutter device during illness to move mucous. 2. Neuromuscular scoliosis of cervicothoracic region 3. Chronic hypoxemic respiratory failure (HCC) Using oxygen with exertion and at night At rest he is able to maintain o2 sat >90% 4. Eyelid dermatitis, eczematous, unspecified laterality Uses hydrocortisone sparingly 5. Lipoma of torso 6 X 7 CM MONITOR 6. Other allergic rhinitis - Fluticasone Propionate 50 MCG/ACT Nasal Suspension (Flonase); Administer 2 Sprays into each nostril in the morning and 2 Sprays in the evening. Dispense: 3 Each; Refill: 3 7. HTN, goal below 150/90 STABLE - BASIC METABOLIC PANEL; Future 8. Iron deficiency anemia, unspecified iron deficiency anemia type DUE FOR RECHECK - CBC WITH WBC DIFFERENTIAL AND ANEMIA REFLEX WORKUP; Future I have advised the patient to call our office incase of any worsening or new symptoms. I spent a total of 40-54 minutes (exact time 40 mins) on the date of service in preparation, delivery, and documentation of the care provided to Ever Louie excluding any time spent in the performance of separately billed services or time spent by another provider/QHP. Raúl, COREY, NAVYA [facility] Pulmonary and Sleep Medicine documented in this encounter Plan of Treatment Upcoming Encounters Date Type Department Care Team (Late st Contact Info) Description 06/07/2024 4:00 PM EST Office Visit Cardiology, [facility] [address] [place] [address] Petar Hernández MD [address] [place] [phone] 07/29/2024 10:00 AM EST Office Visit Pulmonary Medicine, [facility] [address] [facility] [place] [address] Daquan Peters MD [address] [place] [address] 09/07/2024 8:00 AM EST Office Visit Family Practice [facility] [address] [facility] [place] [address] Jarret Aponte DO 132 [facility] [place] [phone] Pending Results Name Type Priority Associated Diagnoses Date /Time CBC WITH WBC DIFFERENTIAL AND ANEMIA REFLEX WORKUP Lab Routine Iron deficiency anemia, unspecified iron deficiency anemia type 03/04/2024 10:44 AM EDT Scheduled Orders Name Type Priority Associated Diagnoses Orde r Schedule CBC WITH WBC DIFFERENTIAL AND ANEMIA REFLEX WORKUP Lab Routine Iron deficiency anemia, unspecified iron deficiency anemia type Expected: 03/04/2024 (Approximate), Expires: 03/04/2025 Health Maintenance Due Date Last Done Comments Adult Wellness Visit 2008 Depression Screening 03/27/2019 03/27/2018 COVID-19 Vaccine ( season) 2023 10/11/2021, 05/11/2021, 09/18/2020, Additional history exists Influenza Vaccine (FLU shot) (#1) 2024 04/24/2023, 04/02/2022, 04/16/2021, Additional history exists GFR 03/04/2025 03/04/2024, 09/12, 11/28/2022, Additional history exists Albumin/Creatinine Ratio 10/01/2026 024, 11/28/2022, 12/15/2014 DTaP,Tdap,and Td Vaccines (3 - Td or Tdap) 02/28/2027 [...] Not on filedocumented as of this encounter Results * (ABNORMAL) BASIC METABOLIC PANEL (03/04/2024 10:44 AM EDT) BUN 14 6 - 20 mg/dL 03/04/2024 12:00 PM EDT [facility] Creatinine 0.5(L) 0.6 - 1.2 mg/dL 03/04/2024 12:00 PM EDT [facility] Estimated Glomerular Filtration Rate >90 >=60 mL/min 03/04/2024 12:00 PM EDT [facility] Comment:eGFR is calculated b ased on the CKD-EPI 2020 equation. Sodium 135 135 - 146 mmol/L 03/04/2024 12:00 PM EDT [facility] Potassium 4.6 3.5 - 5.1 mmol/L 03/04/2024 12:00 PM EDT [facility] Chloride 96(L) 98 - 107 mmol/L 03/04/2024 12:00 PM EDT [facility] CO2 30 22 - 32 mmol/L 03/04/2024 12:00 PM EDT [facility] Anion Gap 9 7 - 15 mmol/L 03/04/2024 12:00 PM EDT [facility] Glucose 74 70 - 120 mg/dL 03/04/2024 12:00 PM EDT [facility] Calcium 9.3 8.4 - 10.2 mg/dL 03/04/2024 12:00 PM EDT [facility] Blood Venous blood specimen / Unknown Venipuncture / Unknown 03/04/2024 10:44 AM EDT 03/04/2024 10:44 AM EDT Elda Purvis NAVYA [facility]OD [facility] [address] [place] [address] documented in this encounter Visit Diagnoses Diagnosis Restrictive lung disease- Primary Other diseases of lung, not elsewhere classified Neuromuscular scoliosis of cervicothoracic region Scoliosis associated with other condition Chronic hypoxemic respiratory failure (HCC) Chronic respiratory failure Eyelid dermatitis, eczematous, unspecified laterality Lipoma of torso Other allergic rhinitis HTN, goal below 150/90 Iron deficiency anemia, unspecified iron deficiency anemia type Chronic respiratory failure with hypoxia (HCC) Chronic respiratory failure documented in this encounter Advance Directives Documents on File Type Date Recorded Patient Pediatric Cns Expl anation Advance Directives and Living Will 05/11/2007 Power of Special Education Superintendent 05/11/2007 Care Teams Preparation Department Supervisor Relationship Specialty Start Date End Date Jarret Aponte DO [address] [place] [id number] PCP - General Family Medicine 05/20/22 documented as of this encounter"
--- OUTSIDE RECORDS SUMMARY | 2024-07-21 07:44 | External Medical Summary | Summary of Care ---
Author Name Unknown Organization [facility] Address [address] [place] [address] Phone [phone] Care Team Providers Care Gear Inspector Name Role Phone Aponte Jarret Murphy DO Primary Care Provider Reason for Visit * Reason Comments Medication Administration Pt here for B 12 injection. Encounter Details Date Type Department Care Team (Late st Contact Info) Description 03/17/2024 11:00 AM EDT Immunization/I njection Ancillary [facility] [address] [facility] [address] [facility] Nurse Clyde Pereira [facility] 132 [facility] [place] [address] Vitamin B 12 deficiency* Allergies Active Allergy Reactions Criticality Noted Date Comments Gadolinium Derivatives 04/16/2021 documented as of this encounter (statuses as of 03/17/2024) Medications Medication Sig Dispensed Refills Start Date [...] HCl 0.15 % Nasal Solution Administer 1 [place] into nostril in the morning and 1 [place] before bedtime. 30 mL 3 03/04/2024 06/02/2024 Active Nystatin 679301 UNIT/ML Mouth/Throat Suspension Swish and swallow 5 mL 4 times a day as needed for Sore throat or Other (Thrush). 473 mL 03/04/2024 Active Hydrocortisone 2.5 % External Cream Apply topically to affected area daily as needed for Other (dry eyElids). To affected area. 30 g 03/04/2024 Active Hospital, Clinic, or Other Facility Administered Medication Ordered Dose Route Frequency Start Date End Date Status Vitamin B-12 (Cyanocobalamin) inj 1,000 mcgIndications:Vitamin B 12 deficiency 1000 mcg IM [id number] 03/12/2024 02/11/2025 Active documented as of this encounter (statuses as of 03/17/2024) Active Problems Problem Noted Date Diagnosed Date Chronic hypoxemic respiratory failure 03/04/2024 Eyelid dermatitis, eczematous, unspecified later ality 03/04/2024 Lipoma of torso 03/04/2024 Chronic respiratory failure with hypoxia 024 Post-polio syndrome 06/13/2022 COVID-19 virus infection 03/15/2022 History of 2019 novel coronavirus disease (COVID -19) 03/15/2022 Overview: 03/04 Neuromuscular scoliosis of cervicothoracic regio n 08/16/2021 Nocturnal hypoxemia 04/03/2020 Overview: [facility] pulm History of colon polyps 03/23/2019 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 Alpha-1 ordered 12/31 TTE [facility] normal EF. Mild LVH. 01/28 colon WNL 2011 colon WNL, 2009 adenoma polyp. History of poliomyelitis 02/28/2017 Restrictive lung disease 02/28/2017 Overview: From Polio BPH with obstruction/lower urinary tract symptom s 02/28/2017 Erectile dysfunction 02/28/2017 Hyperlipidemia 05/22/2015 HTN, goal below 150/90 05/17/2014 Thyroid nodule 05/17/2014 Overview: Negative needle biopsy at [facility] 2013 HYPERTENSIVE HEART DZ 03/02/2009 Overview: Per Heart Failure Taxonomy Protocol. ADVANCE DIRECTIVE INFORMATION 01/18/2005 Overview: No, Advance Directive brochure given to patient at prior appointment. Other allergic rhinitis Overview: ICD-10 update of inactive term Idiopathic scoliosis Other atopic dermatitis Overview: ICD-10 update of inactive term documented as of this encounter (statuses as of 03/17/2024) Resolved Problems Problem Noted Date Diagnosed Date [...] as of this encounter (statuses as of 03/17/2024) Immunizations Name Administration Dates Next Due COVID-19 [...] on file documented as of this encounter Nursing Notes * Claudia Grimes LPN - 03/17/2024 11:08 AM EDT The patient has been properly identified by confirmation of name and date of . Chief Complaint Patient presents with Medication Administration Pt here for B 12 injection. documented in this encounter Plan of Treatment Upcoming Encounters Date Type Department Care Team (Late st Contact Info) Description 06/07/2024 4:00 PM EST Office Visit Cardiology, [facility] [address] [place] [address] Petar Hernández MD [address] [place] [phone] 07/29/2024 10:00 AM EST Office Visit Pulmonary Medicine, [facility] [address] [place] [address] Daquan Peters MD [address] [facility] [place] [address] 09/07/2024 8:00 AM EST Office Visit Family [facility] [address] [place] [address] Jarret Aponte DO [address] [place] [address] Health Maintenance Due Date Last Done Comments [...] encounter Visit Diagnoses Diagnosis Vitamin B 12 deficiency- Primary Other B-complex deficiencies documented in this encounter Administered Medications Active Administered Medications - up to 3 most recent administrations Medication Order MAR Action Action Date Dose Rate Site Vitamin B-12 (Cyanocobalamin) inj 1,000 mcg 1,000 mcg, Intramuscular, [id number], First dose on Fri03/12/24 at 1700, Last dose on Fri01/14/25 at 1700, For 12 doses Given 03/17/2024 11:08 AM EDT 1,000 mcg Deltoid Left Upper documented in this encounter Advance Directives Documents on File Type Date Recorded Patient Pelt Grader Expl anation Advance Directives and Living Will 05/11/2007 Power of Rod Filler 05/11/2007 Care Teams Gear Inspector Relationship Specialty Start Date End Date Jarret Aponte DO [address] [place] [id number] PCP - General Family Medicine 05/20/22 documented as of this encounter
--- OUTSIDE RECORDS SUMMARY | 2024-07-21 07:44 | External Medical Summary | Summary of Care ---
Author Name Unknown Organization [facility] Address [address] [place] [address] Phone [phone] Care Team Providers Care Copying Machine Mechanic Name Role Phone Jarret Aponte DO Primary Care Provider Reason for Visit * Reason Comments Outpatient Testing Encounter Details Date Type Department Care Team (Late st Contact Info) Description 03/04/2024 10:40 AM EDT Laboratory Laboratory, [facility] [address] [facility] [phone] [facility] [address] [facility] [address] [email or web address] Other*[id number]; HTN, goal below 150/90; Iron deficiency anemia, unspecified iron deficiency anemia type Allergies Active Allergy Reactions Criticality Noted Date [...] HCl 0.15 % Nasal Solution Administer 1 Gipsy into nostril in the morning and 1 Gipsy before bedtime. 30 mL 3 03/04/2024 06/02/2024 Active Nystatin [id number] UNIT/ML Mouth/Throat Suspension Swish and swallow 5 mL 4 times a day as needed for Sore throat or Other (Thrush). 473 mL 03/04/2024 Active Fluconazole 150 MG Oral Tablet (Diflucan) Take 1 Tablet by mouth once for 1 dose. REPEAT AFTER 1 WEEK 2 Tablet 03/04/2024 03/04/2024 Active Hydrocortisone 2.5 % External Cream Apply topically to affected area daily as needed for Other (dry eyElids). To affected area. 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 Alpha-1 ordered 12/31 TTE [facility] normal EF. Mild LVH. 01/28 colon WNL 2011 colon WNL, 2009 adenoma polyp. History of poliomyelitis 02/28/2017 Restrictive lung disease 02/28/2017 Overview: From Polio BPH with obstruction/lower urinary tract symptom s 02/28/2017 Erectile dysfunction 02/28/2017 Hyperlipidemia 05/22/2015 HTN, goal below 150/90 05/17/2014 Thyroid nodule 05/17/2014 Overview: Negative needle biopsy at [facility] 2013 HYPERTENSIVE HEART DZ 03/02/2009 Overview: Per [...] 06/07/2024 4:00 PM EST Office Visit Cardiology, [facility] [address] [place] [address] Petar Hernández MD [address] [place] [address] 07/29/2024 10:00 AM EST Office Visit Pulmonary Medicine, [facility] [address] [place] [address] Daquan Peters [facility] [address] [facility] [address] 09/07/2024 8:00 AM EST Office Visit Family Practice [facility] [address] [place] [address] Jarret Aponte DO [address] [place] [address] Pending Results Name Type Priority Associated Diagnoses Date /Time MYCODE SUBSEQUENT ADULT Lab Routine [employer] Other*[id number] 03/04/2024 10:44 AM EDT BASIC METABOLIC PANEL Lab Routine HTN, goal below 150/90 03/04/2024 10:44 AM EDT CBC WITH WBC DIFFERENTIAL AND ANEMIA REFLEX WORKUP Lab Routine Iron deficiency anemia, unspecified iron deficiency anemia type 03/04/2024 10:44 AM EDT MYCODE SST1 Lab Routine [employer] Other*[id number] 03/04/2024 10:44 AM EDT MYCODE SST2 Lab Routine [employer] Other*[id number] 03/04/2024 10:44 AM EDT ANEMIA CBC Lab Routine Iron deficiency anemia, unspecified iron deficiency anemia type 03/04/2024 10:44 AM EDT DIFFERENTIAL, AUTOMATED Lab Routine Iron deficiency anemia, unspecified iron deficiency anemia type 03/04/2024 10:44 AM EDT ANEMIA REFLEX CHEMISTRY HOLD Lab Routine Iron deficiency anemia, unspecified iron deficiency anemia type 03/04/2024 10:44 AM EDT Health Maintenance Due Date Last Done Comments Adult Wellness Visit 2008 Depression Screening 03/27/2019 03/27/2018 COVID-19 Vaccine ( season) 2023 10/11/2021, 05/11/2021, 09/18/2020, Additional history exists Influenza Vaccine (FLU shot) (#1) 2024 04/24/2023, 04/02/2022, 04/16/2021, Additional history exists GFR 10/01/2024 10/02/2023, 11/11, 06/22/2022, Additional history exists Albumin/Creatinine Ratio 10/01/2026 024, [...] as of this encounter Visit Diagnoses Diagnosis [employer] Other*[id number] HTN, goal below 150/90 Iron deficiency anemia, unspecified iron deficiency anemia type documented in this encounter Advance Directives Documents on File Type Date Recorded 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
--- OUTSIDE RECORDS SUMMARY | 2024-07-21 07:44 | External Medical Summary ---
Author Name Unknown Address Unknown Organization [facility] [address] [place] [address] Laboratory Report Ordering Provider Test Date Status JOAQUÍN GUEVARA 03/04/2024 10:44:54 Final Observation Date Value Abnormality Reference (Units ) Status BUN 03/04/2024 10:44:54 14 6-20 (mg/dL) Final Creatinine 03/04/2024 10:44:54 0.5 Below low normal 0.6-1.2 (mg/dL) Final Glomerular filtration rate/1.73 sq M.predicted [Volume Rate/Area] in Serum, Plasma or Blood by Creatinine-based formula (CKD-EPI) 03/04/2024 10:44:54 >90 >=60 (mL/min) Final eGFR is calculated based on the CKD-EPI 2020 equation. Sodium 03/04/2024 10:44:54 135 135-146 (m mol/L) Final Potassium 03/04/2024 10:44:54 4.6 3.5-5.1 (m mol/L) Final Cl 03/04/2024 10:44:54 96 Below low normal 98- 107 (mmol/L) Final CO2 03/04/2024 10:44:54 30 22-32 (mmo l/L) Final Anion gap 03/04/2024 10:44:54 9 7-15 (mmol /L) Final Glucose 03/04/2024 10:44:54 74 70-120 (mg /dL) Final Calcium 03/04/2024 10:44:54 9.3 8.4-10.2 ( mg/dL) Final Per[facility] Location [facility] [place] [address]
--- OUTSIDE RECORDS SUMMARY | 2024-07-21 07:44 | External Medical Summary | Summary of Care ---
Author Name Unknown Organization [facility] Address [address] [place] [place] [place] [address] Phone [phone] Care Team Providers Care Planer Operator / Grader Name Role Phone Aponte Jarret Sequeirazion Primary Care Provider Reason for Visit * Reason Comments Follow Up Test Results 6 [id number] Encounter Details Date Type Department Care Team (Latest Contact Info) Description 01/27/2024 3:20 PM EDT Office Visit Pulmonary Medicine, [facility] [address] [facility] [place] [address] Daquan Alexis MD [address] [facility] [place] [phone] Neuromuscular scoliosis of cervicothoracic region*; Other allergic rhinitis; Restrictive lung disease Allergies Active Allergy Reactions Criticality Noted Date Comments Gadolinium Derivatives 04/16/2021 documented as of this encounter (statuses as of 01/27/2024) Medications Medication Sig Dispensed Refills Start Date [...] APPLICATION TOPICALLY TWICE A DAY 3 Active Tadalafil 5 MG Oral Tablet (Cialis)Indicati ons:BPH with obstruction/lowe r urinary tract symptoms,Erectil e dysfunction, unspecified erectile dysfunction type TAKE 1 TABLET DAILY FOR BENIGN PROSTATIC HYPERPLASIA, CAN TAKE 5 TO 15 MG EXTRA AT LEAST 30 MINUTES PRIOR TO SEX, DAILY NEEDED Strength: 5 mg 90 Tablet 1 3 Active Albuterol Sulfate HFA 108 (90 [...] affected area. 45 g 3 4 Active predniSONE 10 MG Oral Tablet (Deltasone)Indic ations:Restricti ve lung disease Take 5 tabs for 2 days, 4 tabs for 2 days, 3 tabs for 2 days, 2 tabs for 2 days 1 tab for 2 days 30 Tablet 4 Active Azithromycin 250 MG Oral Tablet (Zithromax)Indic ations:Restricti ve lung disease Take 2 tabs by mouth on the first day, then 1 tab daily on days two through five 6 Tablet 4 Active Ipratropium-Albu terol 0.5-2.5 (3) MG/3ML [...] for four days. 6 Tablet 4 Active methylPREDNISolo ne 4 MG Oral Tablet Therapy Pack (Medrol Dosepack) follow package directions 21 Tablet 4 Active Fluticasone Propionate 50 MCG/ACT Nasal Suspension (Flonase)Indicat ions:Other allergic rhinitis Administer 2 Sprays into each nostril in the morning and 2 Sprays in the evening. 3 Each 3 4 01/22/20 25 Active Albuterol Sulfate 0.63 MG/3ML Inhalation Nebulization Solution (Accuneb) Inhale 1 Vial via nebulizer every 6 hours as needed for Wheezing or Shortness of Breath. 360 mL 4 02/26/20 24 Active Nystatin 394565 UNIT/ML Mouth/Throat Suspension Swish and swallow 5 mL 4 times a day as needed for Sore throat or Other (Thrush) for up to 24 days. 473 mL 4 02/20/20 24 Active Albuterol Sulfate (2.5 MG/3ML) 0.083% Inhalation Nebulization Solution (Proventil) Inhale 1 Vial via nebulizer every 4 hours as needed for Wheezing or Other (cough). 300 mL 3 2 01/27/20 24 Discontinued Fluticasone Furoate-Vilanter ol 200-25 MCG/ACT Inhalation Aerosol Powder Breath Activated (BREO ellipta) Inhale 1 Puff by mouth in the morning. 1 puff daily. 60 Blister Dosing Unit 2 4 01/27/20 24 Discontinued(End of Procedure) Fluticasone Propionate 50 MCG/ACT Nasal Suspension (Flonase)Indicat ions:Other allergic rhinitis Administer 2 Sprays into each nostril in the morning. 48 mL 1 4 01/27/20 24 Discontinued Fluticasone Propionate 50 MCG/ACT Nasal Suspension (Flonase)Indicat ions:Other allergic rhinitis Administer 2 Sprays into each nostril in the morning and 2 Sprays in the evening. 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 Alpha-1 ordered 12/31 TTE [facility] normal EF. Mild LVH. 01/28 colon WNL 2011 colon WNL, 2008 adenoma polyp. History of poliomyelitis 02/28/2017 Restrictive lung disease 02/28/2017 Overview: From Polio BPH with obstruction/lower urinary tract symptom s 02/28/2017 Erectile dysfunction 02/28/2017 Hyperlipidemia 05/22/2015 HTN, goal below 150/90 05/17/2014 Thyroid nodule 05/17/2014 Overview: Negative needle biopsy at [facility] 2013 HYPERTENSIVE HEART DZ 03/02/2009 Overview: Per Heart Failure Taxonomy Protocol. ADVANCE DIRECTIVE INFORMATION 01/18/2005 Overview: No, Advance Directive brochure given to patient at prior appointment. Other allergic rhinitis Overview: ICD-10 update of inactive term Idiopathic scoliosis Other atopic dermatitis Overview: ICD-10 update of inactive term documented as of this encounter (statuses as of 01/27/2024) Resolved Problems Problem Noted Date Diagnosed Date [...] as of this encounter (statuses as of 01/27/2024) Immunizations Name Administration Dates Next Due COVID-19 [...] Sign Reading Time Taken Comments Blood Pressure 120/62 01/27/2024 3:23 PM EDT Pulse 85 01/27/2024 3:23 PM EDT Temperature 35.9 C (96.7 F) 01/27/2024 3:23 PM ED T Respiratory Rate 16 01/27/2024 3:23 PM EDT Oxygen Saturation 93% 01/27/2024 3:23 PM EDT Inhaled Oxygen Concentration - - Weight 69.9 kg (154 lb) 01/27/2024 3:23 PM EDT Height 160 cm (5' 3") 01/27/2024 3:23 PM EDT Body Mass Index 27.28 01/27/2024 3:23 PM EDT documented in this encounter Progress Notes * Daquan Alexis MD - 01/27/2024 3:51 PM EDT 01/27/2024 Pulmonary Medicine, [address] [address] [id number] Ever Louie 1940 male 83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 Patient describes a steady exercise tolerance and symptom status. Denies recent emergency room visits, nocturnal awakening due to cough, wheezing, shortness of breath. Patient reports that he stopped using Breo inhaler , only using rescue albuterol therapy. Requesting standby prescription for macrolide antibiotic therapy and Medrol Dosepak for respiratory flare up episodes. New prescription for rescue pack therapy was provided. Reports occasional thrush after using nebulized bronchodilator therapy. Nystatin swish and swallow therapy refill was provided. Patient has been semi compliant with ambulatory oxygen therapy. Has Inogen set up at home. Uses with physical activity based on his own discretion. Physical examination significant for class 3 throat, severe kyphoscoliosis, adequate air entry withminimal rhonchi, no dullness, regular cardiac rhythm soft, nontender abdomen, right foot drop and otherwise nonlateralizing Neuro examination. Positive 6 minute walk test was noted. 2 L nasal cannula oxygen with POC to be used during ambulation had been ordered. XR CHEST 2 VIEWS - 10/27/2023 2:07 pm HISTORY "cough, SOB, + rhonchi RLL after course of zpack and prednisone" TECHNIQUE Frontal and lateral views of the chest were obtained. COMPARISON 02/23/2022 FINDINGS Patient rotation and scoliosis distorts the cardiomediastinal silhouette. No gross evidence of acute consolidation. No significant pleural fluid or pneumothorax. IMPRESSION IMPRESSION No definite acute consolidation on this limited exam. Pulmonary function testing shows severe restrictive ventilatory pattern. FEV1 is 1.10 L, 45% of predicted. Bronchodilator response noted only in smaller airways. Lung volume study shows severe restriction. Flow volume loop consistent with severe restrictive pattern. Severe reduction in mean inspiratory and expiratory pressure noted. COMPARISON with HISTORICAL PFT Data: No Clinically significant change is noted in ventilatory parameters when compared to previousPFTdata. OVERALL IMPRESSION: SEVERE Restrictive Ventilatory Pattern .This interpretation has been electronically signed: DAQUAN ALEXIS DR. 12/20/2022 03:43:[address] Chest Without Contrast; Diagnostic Exam date and time: 12/18/2022 8:47 AM Age: 82 years old Clinical indication: Other disorders of lung; Additional info: F/u ild FINDINGS: Lungs: There is no significant change in the linear bands of atelectasis or scarring within the right middle and lower lobes and lingula, which persist on the prone images. The mild ground-glass opacities on the supine images resolve and are consistent with the expiratory phase of the respiratory cycle. No interval focal consolidation, mass, or new discrete pulmonary nodule is seen. Pleural spaces: No pleural effusion or pneumothorax. IMPRESSION: There are scattered linear densities visualized within the right middle lobe, lingula, and bilateral lower lobes, which persist on both prone and supine images and are most likely related to scarringor atelectasis. The are not significantly changed since prior study. PFT 12/2022 shows severe restrictive ventilatory pattern with FEV1 46% of predicted, unchanged [id number] data. Chest x-ray shows scattered areas of linear atelectasis without consolidation or effusion. Using 2 L NC at night. 6 minutes from 09/2021. Patient walked 302 m on room air. Low SpO2 89%. No supplemental O2 indicated at rest or with exertion ABG from 09/2021 was 7.47/40/88/29 CT chest without contrast from 09/2021 per my interpretation lung parenchyma significant for mild perihilar opacities likely discoid atelectasis secondary to severe scoliosis. There is no significantmediastinal adenopathy. There is no significant fibrotic disease. There is severe dextroscoliosis. There is no mediastinal adenopathy. There is coronary artery and aortic calcifications. Assessment Restrictive lung disease (Primary) Nocturnal hypoxemia Other allergic rhinitis 1. Sob- multifactorial from severe restrictive lung disease secondary to kyphoscoliosis, recent influenza infectino and resolved acute hypoxic respiratory failure 2. Restrictive lung disease- likely extrathoracic restriction 4. Allergic rhinitis 5. Post polio syndrome with neuromuscular scoliosis 7. Influenza A infection 2021 8. 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 Objective Filed Vitals: 01/27/24 1523 BP: 120/62 Pulse: 85 Resp: 16 Temp: 35.9 C (96.7 F) TempSrc: Tympanic SpO2: 93% Weight: 69.9 kg (154 lb) Height: 1.6 m (5' 3") Exam: Const: No signs of acute distress present. Head/Face: Normal on inspection. Eyes: Conjunctivae clear. Pupils equal round and reactive to light. ENMT: Oropharynx: No erythema, exudate or masses. Posterior pharynx is normal. Neck: Supple and symmetric. Resp: Respiratory examination as outlined above CV: Rate is regular. Rhythm is regular. No heart murmur appreciated. Extremities: No edema of the lower limbs bilaterally. Skin: Skin is warm and dry. Neuro: Coordination normal. No involuntary movement. Psych: Patient's attitude is cooperative. Mood is normal. Affect is normal. Tests reviewed with the patient: XR CHEST 2 VIEWS Result Date: 10/27/2023 IMPRESSION No definite acute consolidation on this limited exam. Available Radiologic data was reviewed by me in PACS. The images were shown to the patient and findings were discussed with the patient. HOME MEDICATIONS: Albuterol Sulfate 0.63 MG/3ML Inhalation Nebulization Solution (Accuneb) Azithromycin 250 MG Oral Tablet (Zithromax Z-Elio) Fluticasone Propionate 50 MCG/ACT Nasal Suspension (Flonase) methylPREDNISolone 4 MG Oral Tablet Therapy Pack (Medrol Dosepack) Nystatin 201886 UNIT/ML Mouth/Throat Suspension Ipratropium-Albuterol 0.5-2.5 (3) MG/3ML Inhalation Solution (Duoneb) predniSONE 10 MG Oral Tablet (Deltasone) Triamcinolone Acetonide 0.1 % External Cream (Aristocort) amLODIPine Besylate 2.5 MG Oral Tablet (Norvasc) Montelukast Sodium 10 MG Oral Tablet (Singulair) Rosuvastatin Calcium 5 MG Oral Tablet (Crestor) Terazosin HCl 2 MG Oral Capsule Meloxicam 15 MG Oral Tablet (Mobic) Telmisartan 40 MG Oral Tablet (Micardis) Albuterol Sulfate HFA 108 (90 Base) MCG/ACT Inhalation Aerosol Solution Tadalafil 5 MG Oral Tablet (Cialis) Ketoconazole 2 % External Cream oxygen IN GAS latanoprost (XALATAN) 0.005 % ophthalmic solution Desonide 0.05 % cream ASPIRIN 81 MG PO CHEW Azithromycin 250 MG Oral Tablet (Zithromax) ROS: No reported history of Hemoptysis, Hematemesis, Melena No reported history of Dysuria, Hematuria, Flank Pain No reported history of chronic headache, seizures No reported history of Fall or trauma . No reported history of recent change in weight or appetite. 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, other specified sites(730.78) Other atopic dermatitis and related conditions Pneumonia 2013 Past Surgical History: Procedure Laterality Date COLONOSCOPY THRU STOMA, W/BIOPSY 02/07/09 adenomatous polyp, f/u in 3 yrs COLONOSCOPY, DIAGNOSTIC (RECTUM) 02/03/2018 normal/[facility] COLONOSCOPY, GI REFERRAL OP 2003 wnl COLORECTAL CANCER SCREEN;W/FLE 08/02/98 WNL HUMERAL FRACTURE W/ INTERNAL FIXATION Humerus Open Rx Prox Fx SPINAL FUSION, 6 OR LESS VERT, POST scoliosis in high school--bone graft Social History Socioeconomic History Marital status: Spouse name: Kacy Number of children: 1 Years of education: 16+ Occupational History 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 daughter Aline. 2 stepdaughters. Other Topics Concern Service No Blood Transfusions No Social History Narrative Likes-golf, No pets No mold Social Determinants of Health Food Insecurity: No Food Insecurity (06/27/2022) Hunger Vital Sign Worried About Running Out of Food in the Last Year: Never true Ran Out of Food in the Last Year: Never true Social Connections Family History Problem Relation Name Age of Onset No Past Hx Mother Old age Cancer Father age 76 lung Heart disease Brother Robert heavy smoker Colon cancer Brother Delfin Other (throat cancer) Brother Hussain smoked. Other (downs syndrome) Brother Mikhail Neurological Disorder Brother Down's syndrome Review of patient's allergies indicates: Allergen Reactions Gadolinium Derivatives documented in this encounter Nursing Notes * Molly Castañeda LPN - 01/27/2024 3:27 PM EDT Chief Complaint Patient presents with Follow Up Test Results 6 MWT CXR Pt would like to discuss meds. documented in this encounter Plan of Treatment Upcoming Encounters Date Type Department Care Team (Late st Contact Info) Description 03/04/2024 9:40 AM EDT Office Visit [facility] [address] [place] [address] Elda Purvis CRNP [address] [place] [address] 06/07/2024 4:00 PM EST Office Visit Cardiology, [facility] [address] [place] [address] Petar Hernández MD [address] [place] [address] 07/29/2024 10:00 AM EST Office Visit [facility] Medicine, [facility] [place] [address] Daquan Alexis MD [address] [place] [address] 09/07/2024 8:00 AM EST Office Visit [facility] [address] [facility] [place] [address] Jarret Aponte DO [address] [place] [address] Health Maintenance Due Date Last Done Comments Depression Screening 03/27/2019 03/27/2018 COVID-19 Vaccine (2022-24 season) 2023 10/11/2021, 05/11/2021, 09/18/2020, Additional history [...] as of this encounter Visit Diagnoses Diagnosis Neuromuscular scoliosis of cervicothoracic region- Primary Scoliosis associated with other condition Other allergic rhinitis Restrictive lung disease Other diseases of lung, not elsewhere classified documented in this encounter Advance Directives Documents on File Type Date Recorded 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
--- OUTSIDE RECORDS SUMMARY | 2024-07-21 07:44 | External Medical Summary | Summary of Care ---
Author Name Unknown Organization [facility] Address [address] [facility] [address] Phone [phone] Care Team Providers Care Environmental Program Manager Name Role Phone Jarret Aponte DO Primary Care Provider Reason for Visit * Reason Comments Medication Administration Encounter Details Date Type Department Care Team (Late st Contact Info) Description 04/14/2024 10:00 AM EDT Immunization/Inj ection Ancillary [facility] [address] [facility] [address] Allergies Active Allergy Reactions Criticality Noted Date [...] HCl 0.15 % Nasal Solution Administer 1 [place] into nostril in the morning and 1 [place] before bedtime. 30 mL 3 03/04/2024 06/02/2024 Active Nystatin 677984 UNIT/ML Mouth/Throat Suspension Swish and swallow 5 [...] Tablet (Singulair)Indicati ons:Moderate persistent asthma without complication TAKE 1 TABLET IN THE MORNING 90 Tablet 3 03/30/2024 Active Hospital, Clinic, or Other Facility Administered Medication Ordered Dose Route Frequency Start Date End Date Status Vitamin B-12 (Cyanocobalamin) inj 1,000 mcgIndications:Vitamin B 12 deficiency 1000 mcg IM [id number] 03/12/2024 02/11/2025 Active Vitamin B-12 (Cyanocobalamin) inj 1,000 mcgIndications:Vitamin B 12 deficiency 1000 mcg IM [id number] 03/25/2024 02/24/2025 Active documented as of this [...] regio n 08/16/2021 Nocturnal hypoxemia 04/03/2020 Overview: [facility] pulm History of colon polyps 03/23/2019 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 Alpha-1 ordered 12/31 TTE [facility] normal EF. Mild LVH. 01/28 colon WNL 2011 colon WNL, 2008 adenoma polyp. History of poliomyelitis 02/28/2017 Restrictive lung disease 02/28/2017 Overview: From Polio BPH with obstruction/lower urinary tract symptom s 02/28/2017 Erectile dysfunction 02/28/2017 Hyperlipidemia 05/22/2015 HTN, goal below 150/90 05/17/2014 Thyroid nodule 05/17/2014 Overview: Negative needle biopsy at [facility] 2013 HYPERTENSIVE HEART DZ 03/02/2009 Overview: [...] on file documented as of this encounter Progress Notes * Yolanda Clemente LPN - 04/14/2024 10:18 AM EDT Pre-Administration Time Out Procedure Performed: Yes Patient Identified (Ask Name/Date of ): Yes Does the patient have a fever greater than 101 degrees today? No Patient allergic to latex? No Has the patient ever fainted after receiving an injection? No VFC Stock: No Injection(s) verified: Yes, Injection Name: b12 Verified Side and Site: Yes Verified Shot(s) with Parent(s)/Patient: Yes documented in this encounter Plan of Treatment Upcoming Encounters Date Type Department Care Team (Late st Contact Info) Description 05/14/2024 10:30 AM EDT Immunization/Injec tion Ancillary [place] [address] [place] [address] Nurse Clyde Markham 132 [facility] [place] [address] 06/07/2024 4:00 PM EST Office Visit Cardiology, [facility] 132 [facility] [place] [address] Petar Hernández MD 132 [facility] [place] [address] 06/16/2024 10:30 AM EST Immunization/Injec tion Ancillary [facility] 132 [facility] [place] [address] [facility], Nurse Fam [facility] 132 [facility] [place] [address] 07/29/2024 10:00 AM EST Office Visit Pulmonary Medicine, [facility] 132 [facility] [place] [address] Daquan Peters MD [address] [facility] [address] 09/07/2024 8:00 AM EST Office Visit Family Practice [facility] 132 [facility] [place] [address] Jarret Aponte DO 132 [facility] [place] [address] Health Maintenance Due Date Last Done Comments [...] (Cyanocobalamin) inj 1,000 mcg 1,000 mcg, Intramuscular, [id number], First dose on Fri03/12/24 at 1700, Last dose on Fri01/14/25 at 1700, For 12 doses Given 04/14/2024 10:15 AM EDT 1,000 mcg Deltoid Left Upper Given 03/17/2024 11:08 AM EDT 1,000 mcg D eltoid Left Upper documented in this encounter Advance Directives Documents on File Type Date Recorded 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
--- OUTSIDE RECORDS SUMMARY | 2024-07-21 07:44 | External Medical Summary ---
Author Name Unknown Address Unknown Organization K01:[facility] [place] - [facility] [address] Laboratory Report Ordering Provider Test Date Status JOAQUÍN GUEVARA 03/04/2024 10:44:54 Final Observation Date Value Abnormality Reference (Units ) Status Retic, % (auto) 03/04/2024 10:44:54 2.34 Above high normal 0.80-1.90 (%) Final Reticulocytes, Absolute 03/04/2024 10:44:54 77.2 31.3-100.1 (K/uL) Final Reticulocyte fraction, immature 03/04/2024 10:44:54 18.8 2.5-20.6 (%) Final Reticulocyte HGB 03/04/2024 10:44:54 42.0 Above high normal 29.7-37.4 (pg) Final Performing Location [facility] [place] - [facility] [address] [facility] [place] [address]
--- OUTSIDE RECORDS SUMMARY | 2024-07-21 07:44 | External Medical Summary ---
Author Name Unknown Address Unknown Organization K01:[facility] [place] [address] [place] [address] Laboratory Report Ordering Provider Test Date Status JOAQUÍN GUEVARA 03/04/2024 10:44:54 Final Observation Date Value Abnormality Reference (Units ) Status Vitamin B12 03/04/2024 10:44:54 <150 Below low normal 2 32-1245 (pg/mL) Final Performing Location LAB[facility]ATORY [facility] - [address] [place] [address]
--- OUTSIDE RECORDS SUMMARY | 2024-07-21 07:44 | External Medical Summary ---
Author Name Unknown Address Unknown Organization K01:[facility] [place] [address] [facility] [address] Laboratory Report Ordering Provider Test Date Status JOAQUÍN GUEVARA 03/04/2024 10:44:54 Final Observation Date Value Abnormality Reference (Units ) Status SYNC LEUKOCYTES IN BLOOD BY AUTOMATED COUNT 03/04/2024 10:44:54 4.37 4.00-10.80 (K/uL) Final Segs 03/04/2024 10:44:54 56.3 40.0-75.0 (%) Final Lymphs % 03/04/2024 10:44:54 25.4 18.0-42.0 (%) Final Monos 03/04/2024 10:44:54 13.7 Above high normal 1.0-11.0 (%) Final Eosinophils 03/04/2024 10:44:54 3.7 0.0-6.0 (%) Final Basos 03/04/2024 10:44:54 0.9 0.0-2.0 (%) Final Immature Granulocyte, Percent 03/04/2024 10:44:54 0.0 0.0-2.0 (%) Final Absolute Segs 03/04/2024 10:44:54 2.46 1.80-7.70 (K/uL) Final Lymphs, absolute 03/04/2024 10:44:54 1.11 1.00-4.80 (K/ul) Final Monos, Abs 03/04/2024 10:44:54 0.60 0.00-1.10 (K/uL) Final Eos, Abs 03/04/2024 10:44:54 0.16 0.00-0.70 (K/uL) Final Basos, Abs 03/04/2024 10:44:54 0.04 0.00-0.20 (K/uL) Final Immature Granulocytes, Number 03/04/2024 10:44:54 0.00 0.00-0.20 (K/uL) Final Performing Location [facility] [place] - [facility] [place] [address]
--- OUTSIDE RECORDS SUMMARY | 2024-07-21 07:44 | External Medical Summary ---
Author Name Unknown Address Unknown Organization K01:[facility] [place] [address] [place] [address] Laboratory Report Ordering Provider Test Date Status TIGIST HOPPER 03/04/2024 10:44:54 Final Observation Date Value Abnormality Reference (Units ) Status MYCODE SPECIMEN-SST 03/04/2024 10:44:54 Freezing of extracted DNA, whole blood and/or serum. Final Performing Location [facility] [place] [address] [place] [address]
[2024-07-21] MEDS: BUDESONIDE 0.5 MG/2 ML VIAL (PULMICORT) NEB SCH (08:10)
[2024-07-21] MEDS: ALBUT/IPRATROP 3MG/0.5MG NEB 3 ML VIAL NEB SCH (08:10)
[2024-07-21 08:53] LABS: Base Excess VBG 3.3 mEq/L; HCO3 VBG 30 mmol/L; Oxygen Saturation VBG 83.3 %; PCO2 VBG 51 mmHg (38-50); PO2 VBG 50 mmHg; pH VBG 7.37 (7.36-7.41)
[2024-07-21] MEDS: ASPIRIN 81 MG CHEW PO SCH (08:58)
[2024-07-21] MEDS: dexAMETHasone 6 MG in SYRINGE 0 ML IV SCH (08:59)
[2024-07-21] MEDS: MONTELUKAST SODIUM 10 MG TABLET PO SCH (08:59)
[2024-07-21] MEDS ORDERED: FLUTICASONE/VILANTEROL 100/25MCG 14 PUFFS/INHALER INH SCH (09:00)
[2024-07-21] MEDS ORDERED: amLODIPine BESYLATE 5 MG TAB PO SCH (09:00)
[2024-07-21] MEDS ORDERED: LOSARTAN POTASSIUM 50 MG TAB PO SCH (09:00)
--- OUTSIDE RECORDS SUMMARY | 2024-07-21 09:01 | External Medical Summary | Summary of Care ---
Author Name Unknown Organization [facility] Address [address] [place] [address] Phone [phone] Care Team Providers Care Wafer Cutter Name Role Phone Aponte Jarret Murphy DO Primary Care Provider Reason for Visit * Reason Comments eRx-Medication Refill Encounter Details Date Type Department Care Team (Late st Contact Info) Description 07/19/2024 Refill Cardiology, [facility] [address] [facility] [place] [address] Oly Martinez CRNP 400 [facility] [place] [address] HTN, goal below 150/90 Allergies Active Allergy Reactions Criticality Noted Date Comments Gadolinium Derivatives 04/16/2021 documented as of this encounter (statuses as of 07/20/2024) Medications ASPIRIN 81 MG PO CHEWIndications :HTN, goal below 140/90 one coated aspirin by mouth daily 90 Tab 3 08/09/19 11 Active Desonide 0.05 % cream as directed by Dr. Pagan 30 g 5 05/22/20 15 Active latanoprost (XALATAN) 0.005 % ophthalmic solution INSTILL 1 DROP IN LEFT EYE AT BEDTIME 3 12/11/19 17 Active oxygen IN GAS Use as directed 2 L/min(Oxygen) at bedtime . Active Ketoconazole 2 % External Cream APPLY 1 APPLICATION TOPICALLY TWICE A DAY 07/18/19 23 Active Albuterol Sulfate HFA 108 (90 Base) MCG/ACT Inhalation Aerosol SolutionIndicat ions:Bronchitis , complicated Inhale 2 Puffs by mouth every 4 hours as needed for Wheezing or Cough. 54 g 1 05/29/20 23 Active Meloxicam 15 MG Oral Tablet (Mobic)Indicati ons:Dermatitis TAKE 1 TABLET IN THE MORNING 90 Tablet 3 08/19/19 24 Active Terazosin HCl 2 MG Oral CapsuleIndicati ons:HTN, goal below 150/90 Take 1 Capsule by mouth in the morning. 90 Capsule 3 08/20/19 24 Active Rosuvastatin Calcium 5 MG Oral Tablet (Crestor)Indica tions:Dyslipide vickey, goal LDL below 100 Take 1 Tablet by mouth in the morning. 90 Tablet 3 08/20/19 24 Active Triamcinolone Acetonide 0.1 % External Cream (Aristocort)Ind ications:Dermat itis Apply topically to affected area 2 times a day. To affected area. 45 g 3 09/04/19 24 Active Ipratropium-Alb uterol 0.5-2.5 (3) MG/3ML Inhalation Solution (Duoneb)Indicat ions:Restrictiv e lung disease,Bronchi tis, complicated,Mod erate persistent asthma without complication Inhale 3 mL via nebulizer every 6 hours as needed for Wheezing or Dyspnea. 120 mL 10/27/19 24 Active Azithromycin 250 MG Oral Tablet (Zithromax Z-Elio) Please take 500 mg by mouth on day one, followed by 250 mg by mouth for four days. 6 Tablet 01/27/20 24 Active Nystatin 076635 UNIT/ML Mouth/Throat Suspension Swish and swallow 5 mL 4 times a day as needed for Sore throat or Other (Thrush). 473 mL 03/04/20 24 Active Hydrocortisone 2.5 % External Cream Apply topically to affected area daily as needed for Other (dry eyElids). To affected area. 30 g 03/04/20 24 Active amLODIPine Besylate 2.5 MG Oral Tablet (Norvasc) TAKE 1 TABLET IN THE MORNING 90 Tablet 3 03/30/20 24 Active Montelukast Sodium 10 MG Oral Tablet (Singulair)Roxanna cations:Moderat e persistent asthma without complication TAKE 1 TABLET IN THE MORNING 90 Tablet 3 03/30/20 24 Active Fluticasone Furoate-Vilante rol 200-25 MCG/ACT Inhalation Aerosol Powder Breath Activated (BREO ellipta) Inhale 1 Puff by mouth in the morning. 1 puff daily. 60 Blister Dosing Unit 2 04/29/20 24 Active Telmisartan 40 MG Oral Tablet (Micardis)Indic ations:HTN, goal below 150/90 TAKE 1 TABLET DAILY 90 Tablet 1 07/20/19 25 Active Telmisartan 40 MG Oral Tablet (Micardis)Indic ations:HTN, goal below 150/90 TAKE 1 TABLET DAILY 90 Tablet 3 07/23/19 24 025 Discontinued Hospital, Clinic, or Other Facility Administered Medication Ordered Dose Route Frequency Start Date End Date Status Vitamin B-12 (Cyanocobalamin) inj 1,000 mcgIndications:Vitamin B 12 deficiency 1000 mcg IM [id number] 03/12/2024 02/11/2025 Active Vitamin B-12 (Cyanocobalamin) inj 1,000 mcgIndications:Vitamin B 12 deficiency 1000 mcg IM [id number] 03/25/2024 02/24/2025 Active documented as of this [...] n 08/16/2021 Nocturnal hypoxemia 04/03/2020 Overview (04/03/2020): [facility] pul History of colon polyps 03/23/2019 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 Alpha-1 ordered 12/31 TTE [facility] normal EF. Mild LVH. 01/28 colon WNL 2011 colon WNL, 2008 adenoma polyp. History of poliomyelitis 02/28/2017 Restrictive lung disease 02/28/2017 Overview (02/28/2017): From Polio BPH with obstruction/lower urinary tract symptom s 02/28/2017 Erectile dysfunction 02/28/2017 Hyperlipidemia 05/22/2015 HTN, goal below 150/90 05/17/2014 Thyroid nodule 05/17/2014 Overview (05/17/2014): Negative needle biopsy at [facility] 2013 HYPERTENSIVE HEART DZ 03/02/2009 Overview (03/02/2009): [...] Former Cigarettes 1 3 1 966 - 1968 Smokeless Tobacco: Never Alcohol Use Standard Drinks/Week [...] encounter Miscellaneous Notes * Telephone Encounter - Javier Jenkins [facility] - 07/20/2024 2:05 PM EST Signed Prescriptions: Disp Refills Telmisartan 40 MG Oral Tablet (Micardis) 90 Tab*1 Sig: TAKE 1 TABLET DAILYAuthorizing Provider: OLY MARTINEZ User: JAVIER JENKINS--- * Telephone Encounter - Kayley Garcia - 07/19/2024 4:36 PM ESTPending Prescriptions: Disp Refills Telmisartan 40 MG Oral Tablet [Pharmacy Me*90 Tab*3 Sig: TAKE 1 TABLET DAILY * Telephone Encounter - Kayley Garcia - 07/19/2024 4:34 PM EST Did you pend patient's preferred pharmacy and medication before forwarding?yes Pharmacy: [facility]- [place] Pending Prescriptions: Disp Refills Telmisartan 40 MG Oral Tablet (Micardis) *90 Tab*3 Sig: TAKE 1 TABLET DAILY Last Visit: 05/16/2023 (in office), Visit date not found (telemedicine) Next Visit: 12/16/2024 If no future appointments scheduled, and last appointment is greater than a year ago, please schedule patient for a follow-up appointment Last date the medication was ordered: 07/23/2023 Is this request for a controlled substance?No Urine Drug Screen:No results found for this or any previous visit. Patient Phone Numbers Labs: Lab Results Component Value Date/Time CREAT 0.5 (L) 03/04/2024 10:44 AM CREAT 0.35 (A) 06/22/2022 12:00 AM CREAT 0.5 (L) 02/21/2020 08:58 AM POTASSIUM 4.6 03/04/2024 10:44 AM POTASSIUM 3.8 06/22/2022 12:00 AM POTASSIUM 4.5 02/21/2020 08:58 AM TSH 1.24 02/21/2020 08:55 AM LDL 48 10/02/2023 09:43 AM LDL 81 02/21/2020 08:58 AM LDL NOT APPLICABLE 02/21/2020 08:58 AM ALT 20 10/02/2023 09:43 AM ALT 24 02/21/2020 08:58 AM HGBA1C 5.2 04/16/2021 11:49 AM HGBA1C 5.1 03/31/2019 09:29 AM documented in this encounter Plan of Treatment Upcoming Encounters Date Type Department Care Team (Late st Contact Info) Description 07/29/2024 10:00 AM EST Office Visit Pulmonary Medicine, [facility] 132 [facility] [place] [address] Daquan Peters MD [address] [place] [address] 08/16/2024 10:00 AM EST Immunization/Injec tion Ancillary [facility] 132 [facility] [place] [address] Nurse Clyde Markham [address] [place] [address] [place] [address] 09/07/2024 8:00 AM EST Office Visit Family Practice [facility] 132 [facility] [place] [address] Jarret Aponte DO 132 [facility] [place] [address] 09/13/2024 10:00 AM EST Immunization/Injec tion Ancillary [facility] 132 [facility] [place] [address] Nurse Clyde Markham 132 [facility] [place] [address] 10/18/2024 10:00 AM EDT Immunization/Injec tion Ancillary [facility] 132 [facility] [place] [address] Nurse Clyde Markham 132 [facility] [place] [address] 12/16/2024 8:30 AM EDT Office Visit Cardiology, [facility] [address] [place] [address] Petar Hernández MD [address] [place] [address] Health Maintenance Due Date Last Done Comments [...] as of this encounter Visit Diagnoses Diagnosis HTN, goal below 150/90 documented in this encounter Advance Directives Documents on File Type Date Recorded 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
--- NOTE | 2024-07-21 12:30 | Nephrology Consultation ---
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 he has underlying lung disease which makes him much more susceptible for hyponatremia related with the SIADH. in fact he does have history of intermittent hyponatremia but not on a regular consistent basis. his intake of protein and solid food is pretty good and he finished his breakfast completely. sodium is slightly low at 126 but it is not dropping. did not go up with saline. his hyponatremia problem is not severe enough to warrant urea. he does not need salt tablet. would put him on a free fluid restriction of 1500 mL per day. this will be his main treatment. next BMP can be done in the morning (2) Acute respiratory failure with hypoxia and hypercapnia: patient with severe underlying lung disease both restrictive and obstructive in nature who is already on chronic oxygen now has acute on chronic respiratory failure related with COVID infection. fortunately his respiratory status has dramatically improved overnight (3) COVID-19: History of Present Illness Reason for Consultation: hyponatremia Attending Physician: Andria Ellis MD History of Present Illness 84-year-old male who was admitted yesterday because of shortness of breath and hypoxia related with COVID infection. even at baseline patient has severe restrictive lung disease, Severe kyphoscoliosis, Obstructive lung disease, , postpolio syndrome, allergic rhinitis, hyperlipidemia, nocturnal hypoxemia, uses 2 liters oxygen while ambulating and while sleeping, hypertension, BPH. serum sodium was 126. patient received normal saline as well as dose of Lasix 20 mg IV. This morning serum sodium still 126. However he has had significant improvement in his breathing. as for his and his daughter it almost feels like a night and day difference. on review of his outpatient blood work he does have history of intermittent hyponatremia but not consistently. urine osmolarity done yesterday showed 547 and urine sodium was 73. currently has a Rocha catheter and has made 750mL of urine so far. review of systems------- positive for shortness of breath more than usual but otherwise negative. Twelve systems reviewed physical examination: elderly white male who does not appear to be in any respiratory distress at this time mucous membrane is moist neck is supple no JVD chest bilateral decreased breath sounds with prolonged expiration as well as occasional basal crackles bilaterally at the bases abdomen is soft nontender extremities shows no edema skin without rashes Allergies Allergy/AdvReac Type Severity Reaction Status Date / Time Gadolinium-Containing AdvReac Unknown Verified 07/20/24 23:46 Contrast Medi Home Medications Medication Instructions Recorded Confirmed Type albuterol sulfate 90 mcg/actuation 2 puff inhalation Q4 PRN 06/22/22 07/20/24 History aerosol inhaler .cough/wheezing aspirin 81 mg chewable tablet 81 mg PO DAILY 06/22/22 07/20/24 History fluticasone furoate 100 1 inh inhalation QAM 06/22/22 07/20/24 History mcg-vilanterol 25 mcg/dose inhalation powder (Breo Ellipta) latanoprost 0.005 % eye drops 1 drp OPL HS 06/22/22 07/20/24 History meloxicam 15 mg tablet 15 mg PO QAM 06/22/22 07/20/24 History montelukast 10 mg tablet 10 mg PO QAM 06/22/22 07/20/24 History rosuvastatin 5 mg tablet 5 mg PO QPM 06/22/22 07/20/24 History telmisartan 40 mg tablet 40 mg PO DAILY 06/22/22 07/20/24 History terazosin 2 mg capsule 2 mg PO HS 06/22/22 07/20/24 History amlodipine 2.5 mg tablet 2.5 mg PO QAM 07/20/24 07/20/24 History ipratropium 0.5 mg-albuterol 3 mg 3 ml inhalation Q6 PRN wheezing or 07/20/24 07/20/24 History (2.5 mg base)/3 mL nebulization dyspnea soln Patient History Medical History SOB (shortness of breath) 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 Asthma BPH (benign prostatic hyperplasia) HTN (hypertension) COPD (chronic obstructive pulmonary disease) with chronic bronchitis COPD (chronic obstructive pulmonary disease) Post poliomyelitis syndrome Nocturnal hypoxemia Allergic rhinitis Social History Smoking Status: Former smoker Second Hand Exposure: Yes; Do You Dip or Chew Tobacco: No; Hx Alcohol Use: Yes Alcohol type: wine Hx Substance Use: No Preferred Language: Israeli Communication Ability: Effective Laser Engineer Required: No Beliefs That Will Affect Care: None Current Living Situation: Spouse Feels Safe at Home: Yes Safety Concerns: Feels Safe At This Time Assistive Devices: Cane Results & Data Vital Signs (Past 12 Hours) Vital Signs Temp Pulse Pulse Resp BP BP Pulse Ox 07/21/24 10:27 136/75 07/21/24 10:00 95 H 24 96 07/21/24 09:30 07/21/24 09:27 147/81 H 07/21/24 09:27 105 H 25 H 89 L 07/21/24 08:31 80 07/21/24 08:26 139/75 07/21/24 08:18 36.6 C 91 H 20 100 07/21/24 08:14 88 20 95 07/21/24 07:27 113/58 L 07/21/24 07:18 36.6 C 69 24 99 07/21/24 07:00 36.6 C 76 16 99 07/21/24 06:27 122/65 07/21/24 06:27 122/65 07/21/24 06:27 122/65 07/21/24 06:27 122/65 07/21/24 06:25 07/21/24 06:21 36.7 C 77 21 100 07/21/24 05:27 115/65 07/21/24 05:12 36.7 C 72 24 99 07/21/24 05:03 36.7 C 101 H 20 99 07/21/24 04:39 36.6 C 81 18 99 07/21/24 04:27 131/66 07/21/24 04:27 131/66 07/21/24 04:18 36.5 C 90 22 99 07/21/24 04:13 36.4 C L 83 18 157/81 H 97 07/21/24 04:11 07/21/24 04:06 98 H 25 H 97 07/21/24 03:38 147/88 H 07/21/24 03:00 67 20 121/70 97 07/21/24 01:58 66 18 118/64 98 07/21/24 01:20 71 07/21/24 00:36 101 H 20 98 O2 Del Method O2 Del Method O2 Flow Rate FiO2 07/21/24 10:27 07/21/24 10:00 07/21/24 09:30 Room Air 07/21/24 09:27 07/21/24 09:27 07/21/24 08:31 07/21/24 08:26 07/21/24 08:18 07/21/24 08:14 07/21/24 07:27 07/21/24 07:18 07/21/24 07:00 07/21/24 06:27 07/21/24 06:27 07/21/24 06:27 07/21/24 06:27 07/21/24 06:25 BiPAP 07/21/24 06:21 07/21/24 05:27 07/21/24 05:12 07/21/24 05:03 07/21/24 04:39 07/21/24 04:27 07/21/24 04:27 07/21/24 04:18 07/21/24 04:13 BiPAP 07/21/24 04:11 BiPAP 40 07/21/24 04:06 40 07/21/24 03:38 07/21/24 03:00 BiPAP 07/21/24 01:58 BiPAP 07/21/24 01:20 07/21/24 00:36 50 Laboratory Results urine osmolarity 547 urine sodium 73
--- NOTE | 2024-07-21 13:10 | Hospitalist Progress Note ---
Date of Service July 21, 2024 Assessment & Plan (1) Acute respiratory failure with hypoxia and hypercapnia: Plan Pt is an 84-year-old male with past medical history significant for severe restrictive lung disease, Severe kyphoscoliosis, Obstructive lung disease, , postpolio syndrome, allergic rhinitis, hyperlipidemia, nocturnal hypoxemia(uses 2 liters oxygen while ambulating and while sleeping), hypertension, BPH, history of COVID-19 who presents with acute on chronic respiratory failure requiring BiPAP. He was also COVID-positive. Patient was having shortness of breath for 2 days. Took 1 dose of Paxlovid. Was very drowsy on admission. Patient having some CO2 retention, BiPAP settings requiring adjustment. Acute respiratory failure with hypoxia and hypercapnia Acute on chronic respiratory failure Sepsis COVID-19 infection Pt presenting tachycardic and tachypneic, likely pulmonary infectious source On home oxygen 2 L with ambulation and while sleeping History of Severe restrictive lung disease. Severe kyphoscoliosis Has COVID VBG noting CO2 retention Received nebs and decadron in ER Initially requiring BiPAP and admission to the ICU Continued with nebs [id number] and as needed IV Decadron Remdesivir was started, has since been discontinued in the ICU Continue azithromycin Improved and has since been downgraded from the ICU Continue to monitor Hyponatremia Sodium 126 on admission Serum osm 259 and urine osm 547 Received fluids in the ER Nephrology consulted, appreciate recs -SIADH - free fluid restriction of 1500 mL per day for treatment -no urea or salt tabs at this time -daily BMP Continue to monitor Chronic Anemia Hgb in 11 range AM anemia panel Continue to monitor Thrombocytopenia appears chronic We will follow labs Hypertension Home amlodipine and losartan on hold Continue terazosin Monitor BP Hyperlipidemia On rosuvastatin History of BPH On terazosin Monitor for urinary retention Nocturnal hypoxemia On oxygen nightly as above Diet: HH/FR 1500 DVT prophylaxis: Heparin subcu. Monitor platelets Dispo: PT/OT for further recs Admission and Anticipated Discharge Date Admission Date: July 21, 2024 Subjective Patient was seen in the a.m. with family at bedside Alert and oriented x 3 Denying any acute shortness of breath or chest tightness. Notified by ICU physician the patient was stable for downgrade. Review of Systems Review of Systems: All systems reviewed & are unremarkable except as noted in Subjective Physical Exam Physical Exam: General: Alert, oriented. No acute distress Skin: No noted rashes or bruises MSK: pt with noted scoliosis Psych: Appropriate mood and affect Neuro: AAOx3 HEENT: NC/AT CV: RRR Resp: Breath sounds clear bilaterally, no increased effort of breathing Abdomen: Soft, nontender Extremities: No edema in lower extremities bilaterally. Results & Data Results & Data Vital Signs (Past 12 Hours) Vital Signs Temp Pulse Pulse Resp BP BP Pulse Ox 07/21/24 10:27 136/75 07/21/24 10:00 95 H 24 96 07/21/24 09:30 07/21/24 09:27 147/81 H 07/21/24 09:27 105 H 25 H 89 L 07/21/24 08:31 80 07/21/24 08:26 139/75 07/21/24 08:18 36.6 C 91 H 20 100 07/21/24 08:14 88 20 95 07/21/24 07:27 113/58 L 07/21/24 07:18 36.6 C 69 24 99 07/21/24 07:00 36.6 C 76 16 99 07/21/24 06:27 122/65 07/21/24 06:27 122/65 07/21/24 06:27 122/65 07/21/24 06:27 122/65 07/21/24 06:25 07/21/24 06:21 36.7 C 77 21 100 07/21/24 05:27 115/65 07/21/24 05:12 36.7 C 72 24 99 07/21/24 05:03 36.7 C 101 H 20 99 07/21/24 04:39 36.6 C 81 18 99 07/21/24 04:27 131/66 07/21/24 04:27 131/66 07/21/24 04:18 36.5 C 90 22 99 07/21/24 04:13 36.4 C L 83 18 157/81 H 97 07/21/24 04:11 07/21/24 04:06 98 H 25 H 97 07/21/24 03:38 147/88 H 07/21/24 03:00 67 20 121/70 97 07/21/24 01:58 66 18 118/64 98 07/21/24 01:20 71 O2 Del Method O2 Del Method O2 Flow Rate FiO2 07/21/24 10:27 07/21/24 10:00 07/21/24 09:30 Room Air 07/21/24 09:27 07/21/24 09:27 07/21/24 08:31 07/21/24 08:26 07/21/24 08:18 07/21/24 08:14 07/21/24 07:27 07/21/24 07:18 07/21/24 07:00 07/21/24 06:27 07/21/24 06:27 07/21/24 06:27 07/21/24 06:27 07/21/24 06:25 BiPAP 07/21/24 06:21 07/21/24 05:27 07/21/24 05:12 07/21/24 05:03 07/21/24 04:39 07/21/24 04:27 07/21/24 04:27 07/21/24 04:18 07/21/24 04:13 BiPAP 07/21/24 04:11 BiPAP 40 07/21/24 04:06 40 07/21/24 03:38 07/21/24 03:00 BiPAP 07/21/24 01:58 BiPAP 07/21/24 01:20 Diagnostic Findings Chest X-Ray 07/20/24 21:06 Exam(s): XR CXR 1 VIEW EXAM: XR Chest, 1 View CLINICAL HISTORY: Reason for exam: Chest pain, nonspecific. TECHNIQUE: Frontal view of the chest. COMPARISON: 06/21/2022 FINDINGS: Lungs: See below. Pleural space: No pneumothorax. Heart: Unremarkable. No cardiomegaly. Mediastinum: Significant right hemithorax volume loss with left to right mediastinal shift. This is unchanged. No acute infiltrate. Trace left pleural effusion. Bones/joints: Unremarkable. No acute fracture. IMPRESSION: As above Electronically signed by: Benjamin Aguilar MD 07/20/24 23:38 PM
[2024-07-21 14:11] LABS: iSTAT Arterial Blood Gas HCO3 28 meg/L (19-24); iSTAT Arterial Blood Gas pCO2 65 mmHg (35-46); iSTAT Arterial Blood Gas pH 7.24 (7.35-7.45); iSTAT Arterial Blood Gas pO2 229 mmHg (80-95); iSTAT Carbon Dioxide 30 mmol/L (24-31); iSTAT Hematocrit 38 % (42-52); iSTAT Hemoglobin 12.9 g/dl (14.0-18.0); iSTAT Potassium 3.9 mmol/L (3.3-5.0); iSTAT Sodium 125 mmol/L (135-144)
[2024-07-21 14:12] LABS: iSTAT Arterial Blood Gas HCO3 29 meg/L (19-24); iSTAT Arterial Blood Gas pCO2 64 mmHg (35-46); iSTAT Arterial Blood Gas pH 7.27 (7.35-7.45); iSTAT Arterial Blood Gas pO2 113 mmHg (80-95); iSTAT Carbon Dioxide 31 mmol/L (24-31); iSTAT Hematocrit 37 % (42-52); iSTAT Hemoglobin 12.6 g/dl (14.0-18.0); iSTAT Potassium 4.1 mmol/L (3.3-5.0); iSTAT Sodium 126 mmol/L (135-144)
[2024-07-21] MEDS: COUGH DROP (SUGAR FREE) LOZ 24 LOZ/1 BOX BUCCAL PRN (15:15)
[2024-07-21] MEDS: TERAZOSIN HCL 1 MG CAP PO SCH (21:40)
[2024-07-21] MEDS: ROSUVASTATIN CALCIUM 5 MG TAB PO SCH (21:40)
[2024-07-21] MEDS: LATANOPROST 0.005% OP SOLN 2.5 ML BTL OPL SCH (21:40)
[2024-07-22 04:46] LABS: Basophils # (auto) 0.01 K/uL (0.00-0.20); Basophils % (auto) 0.1 %; Hematocrit (blood only) 33.6 % (42.0-52.0); Hemoglobin 11.2 g/dl (14.0-18.0); Immature Granulocytes # (auto) 0.07 K/uL (0.01-0.20); Immature Granulocytes % (auto) 0.5 %; Lymphocytes # (auto) 0.57 K/uL (1.20-3.40); Mean Corpuscular Hgb Conc 33.3 g/dL (32.0-36.0); Mean Corpuscular Volume 78.1 fL (80.0-100.0); Mean Platelet Volume 9.7 fL (9.4-12.4); Monocytes # (auto) 0.78 K/uL (0.11-0.59); Monocytes % (auto) 5.4 %; Neutrophils # (auto) 12.89 K/uL (1.40-6.50); Platelet Count 134 K/uL (130-400); RDW Coefficient of Variation 15.6 % (11.5-14.5); RDW Standard Deviation 43.9 fL (36.4-46.3); White Blood Count 14.32 K/ul (4.8-10.8)
[2024-07-22 04:54] LABS: Anion Gap 5 (3-11); BUN Creatinine Ratio 58.1 (10-20); Blood Urea Nitrogen 18 mg/dl (6-23); Calcium 8.7 mg/dl (8.6-10.3); Carbon Dioxide 30 mmol/L (21-32); Chloride 93 mmol/L (98-107); Creatinine Clr Calc Pharmacy 171.3 ml/min; Glucose 135 mg/dl (70-99(Fasting)); Potassium 4.2 mmol/L (3.5-5.1); Sodium 128 mmol/L (136-145)
[2024-07-22 04:55] LABS: Alanine Aminotransferase 20 U/L (7-52); Albumin Globulin Ratio 1.7 (0.9-2); Albumin Level 3.7 gm/dl (3.4-5.0); Alkaline Phosphatase 68 U/L (34-104); Aspartate Aminotransferase 24 U/L (13-39); Bilirubin,Total 0.4 mg/dl (0.2-1.0); Globulin 2.2 gm/dl (2.5-4.0); Iron < 10 mcg/dl (35-175); Magnesium 2.2 mg/dl (1.7-2.4); Phosphorus 2.9 mg/dl (2.5-4.9); Total Iron Binding Cap Calc 377 mcg/dl (250-450); Total Protein 5.9 gm/dl (6.0-8.3); Transferrin 269 mg/dl (200-360)
[2024-07-22 05:13] LABS: Ferritin 32.1 ng/ml (8-388)
[2024-07-22 05:20] LABS: Folate (Folic Acid),Ser orPlas > 22.30 ng/ml (>5.38)
[2024-07-22 05:21] LABS: Vitamin B12 620 pg/ml (180-914)
--- NOTE | 2024-07-22 06:53 | Electrocardiogram Report ---
Test Reason : Blood Pressure : */* mmHG Vent. Rate : 116 BPM Atrial Rate : 116 BPM P-R Int : 140 ms QRS Dur : 74 ms QT Int : 304 ms P-R-T Axes : 65 79 60 degrees QTcB Int : 422 ms Poor data quality, interpretation may be adversely affected Sinus tachycardia Possible Left atrial enlargement Borderline ECG When compared with ECG of 21-Jun-2022 18:26, No significant change was found Confirmed by Isaac Alonzo ([id number] on 07/22/2024 6:52:45 AM Referred By: REFERRED SELF Confirmed By: Isaac Alonzo
[2024-07-22] MEDS ORDERED: AZITHROMYCIN 500 MG VIAL IV SCH (08:00)
[2024-07-22] MEDS: IRON SUCROSE 200 MG in SODIUM CHLORIDE 0.9% 100 ML IV ONE (08:58)
[2024-07-22] MEDS: AZITHROMYCIN 250 MG TAB PO SCH (08:59)
[2024-07-22] MEDS ORDERED: AZITHROMYCIN 250 MG TAB PO SCH (09:00)
--- NOTE | 2024-07-22 09:15 | Pulmonology Progress Note ---
Date of Service July 22, 2024 Assessment & Plan (1) Acute respiratory failure with hypoxia and hypercapnia: (2) Hyponatremia: (3) COVID-19: (4) Acute respiratory failure with hypoxia: (5) Severe scoliosis: (6) Restrictive ventilatory defect: Plan Impression: 84 YOM presents to the hospital with 2 day history of shortness of breath, found to have COVID 19 associated with worsening hypercarbic respiratory failure, requiring uptitration of BiPAP with back up rate. He is improving clinically Recommendations: 1. Acute on chronic hypoxemic and respiratory: The patient is doing well on BiPAP nightly. 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 Discontinue Rocha catheter. 2. COVID pneumonitis: Oxygen requirement significantly improved. Would continue dexamethasone until hypoxemia is resolved. Okay to transition dexamethasone to oral. 3. Severe restrictive lung disease: Secondary to postpolio. No intervention acutely required. Continue supportive care. Disposition per primary service. Admission and Anticipated Discharge Date Admission Date: July 21, 2024 Subjective Patient seen and examined. EMR reviewed. He was able to use BiPAP last night and states he tolerated it well. His oxygen requirement is improved. He is asking about potentially going home. He is intermittently on and off oxygen at a relatively low level. Review of Systems Review of Systems: All systems reviewed & are unremarkable except as noted in Subjective Physical Exam Constitutional: well developed and well nourished; no acute distress Neck: trachea midline, no thyromegaly Respiratory: normal respiratory effort Auscultation: lungs clear to auscultation bilaterally and + diminished lung sounds Cardiovascular: RRR, no murmur, no edema Palpation: normal PMI; no thrill Gastrointestinal (Abdomen): normal bowel sounds, soft, nontender, no hepatosplenomegaly Musculoskeletal: no cyanosis or clubbing, extremities motor strength 5/5 Head/Neck/Chest: + abnormal inspection of chest wall (Profound kyphoscoliosis) Skin: no rashes, warm and dry Psychiatric: A+Ox3, euthymic affect Lymphatic: no cervical or axillary lymphadenopathy Results & Data Results & Data Vital Signs (Past 12 Hours) Vital Signs Temp Pulse Pulse Resp BP Pulse Ox O2 Del Method 07/22/24 07:45 91 H 18 91 Room Air 07/22/24 04:09 36.4 C L 76 23 96 07/22/24 03:29 67 20 95 07/22/24 03:06 36.5 C 68 20 94 07/22/24 02:00 36.7 C 69 20 95 07/22/24 01:27 123/65 07/22/24 01:27 123/65 07/22/24 01:06 36.5 C 81 20 96 07/22/24 00:34 81 20 96 BiPAP 07/22/24 00:06 102 H 19 97 07/22/24 00:00 103 H 07/21/24 23:03 99 H 39 H 97 07/21/24 22:00 109 H 24 90 07/21/24 21:27 145/78 H 07/21/24 21:27 145/78 H 07/21/24 21:27 145/78 H FiO2 07/22/24 07:45 07/22/24 04:09 07/22/24 03:29 28 07/22/24 03:06 07/22/24 02:00 07/22/24 01:27 07/22/24 01:27 07/22/24 01:06 07/22/24 00:34 28 07/22/24 00:06 07/22/24 00:00 07/21/24 23:03 07/21/24 22:00 07/21/24 21:27 07/21/24 21:27 07/21/24 21:27 Critical Care Results & Data Vital Signs (Past 12 Hours) Vital Signs Temp Pulse Pulse Resp BP Pulse Ox O2 Del Method 07/22/24 07:45 91 H 18 91 Room Air 07/22/24 04:09 36.4 C L 76 23 96 07/22/24 03:29 67 20 95 07/22/24 03:06 36.5 C 68 20 94 07/22/24 02:00 36.7 C 69 20 95 07/22/24 01:27 123/65 07/22/24 01:27 123/65 07/22/24 01:06 36.5 C 81 20 96 07/22/24 00:34 81 20 96 BiPAP 07/22/24 00:06 102 H 19 97 07/22/24 00:00 103 H 07/21/24 23:03 99 H 39 H 97 07/21/24 22:00 109 H 24 90 07/21/24 21:27 145/78 H 07/21/24 21:27 145/78 H 07/21/24 21:27 145/78 H FiO2 07/22/24 07:45 07/22/24 04:09 07/22/24 03:29 28 07/22/24 03:06 07/22/24 02:00 07/22/24 01:27 07/22/24 01:27 07/22/24 01:06 07/22/24 00:34 28 07/22/24 00:06 07/22/24 00:00 07/21/24 23:03 07/21/24 22:00 07/21/24 21:27 07/21/24 21:27 07/21/24 21:27 Lab & Micro Results (Past 24 Hours) RBC 4.30 M/uL (4.70-6.10) L 07/22/24 WBC 14.32 K/ul (4.8-10.8) H 07/22/24 Hgb 11.2 g/dl (14.0-18.0) L 07/22/24 Hct 33.6 % (42.0-52.0) L 07/22/24 MCV 78.1 fL (80.0-100.0) L 07/22/24 MCH 26.0 pg (25.0-34.0) 07/22/24 MCHC 33.3 g/dL (32.0-36.0) 07/22/24 RDW Standard Deviation 43.9 fL (36.4-46.3) 07/22/24 RDW Coefficient of Variation 15.6 % (11.5-14.5) H 07/22/24 Plt Count 134 K/uL (130-400) 07/22/24 MPV 9.7 fL (9.4-12.4) 07/22/24 Neutrophils (%) (Auto) 90.0 % 07/22/24 Lymphocytes (%) (Auto) 4.0 % 07/22/24 Monocytes # (Auto) 0.78 K/uL (0.11-0.59) H 07/22/24 Eosinophils # (Auto) 0.00 K/uL (0.00-0.50) 07/22/24 Immature Granulocyte % (Auto) 0.5 % 07/22/24 Neutrophils # (Auto) 12.89 K/uL (1.40-6.50) H 07/22/24 Lymphocytes # (Auto) 0.57 K/uL (1.20-3.40) L 07/22/24 Monocytes # (Auto) 0.78 K/uL (0.11-0.59) H 07/22/24 Eosinophils # (Auto) 0.00 K/uL (0.00-0.50) 07/22/24 Basophils # (Auto) 0.01 K/uL (0.00-0.20) 07/22/24 Immature Granulocyte # (Auto) 0.07 K/uL (0.01-0.20) 5 Na 128 mmol/L (136-145) L 07/22/24 K 4.2 mmol/L (3.5-5.1) 07/22/24 Cl 93 mmol/L (98-107) L 07/22/24 CO2 30 mmol/L (21-32) 07/22/24 Anion Gap 5 (3-11) 07/22/24 BUN 18 mg/dl (6-23) 07/22/24 Creatinine 0.31 mg/dl (0.6-1.4) L 07/22/24 BUN/Creatinine Ratio 58.1 (10-20) H 07/22/24 Glu 135 mg/dl (70-99(Fasting)) H 07/22/24 Ca 8.7 mg/dl (8.6-10.3) 07/22/24 Phosphorus Level 2.9 mg/dl (2.5-4.9) 07/22/24 Total Bilirubin 0.4 mg/dl (0.2-1.0) 07/22/24 AST 24 U/L (13-39) 07/22/24 ALT 20 U/L (7-52) 07/22/24 Alkaline Phosphatase 68 U/L (34-104) 07/22/24 TP 5.9 gm/dl (6.0-8.3) L 07/22/24 Albumin 3.7 gm/dl (3.4-5.0) 07/22/24 Globulin 2.2 gm/dl (2.5-4.0) L 07/22/24 Albumin/Globulin Ratio 1.7 (0.9-2) 07/22/24 Mg 2.2 mg/dl (1.7-2.4) 07/22/24 04:04 Calcium Level 8.7 mg/dl (8.6-10.3) 07/22/24 04:04 I & O Totals 24 Hours 07/21/24 07/22/24 07/23/24 06:59 06:59 06:59 Intake Total 600 / 600 1088.333 / 1088.333 Output Total 600 / 600 1650 / 1650 Balance 0 / 0 -561.667 / -561.667 Cumulative 07/20/24 20:40 thru 07/22/24 06:30 Intake Total 1688.333 Output Total 2250 Balance -561.667 RT Ventilator Mngmt (Last Documented) Ventilator Ordered Settings Respiratory Rate 18 07/22/24 07:45 Fraction of Inspired Oxygen 28 07/22/24 03:29 Ventilator - PT Measurements Respiratory Rate 18 PG Care Time/CCT Total # of Minutes Spent Total Time Spent with Patient: Total time spent is greater than 50% in coordination of care (as documented) at patient's floor/unit and/or counseling patient: Coding Level of Care Code 11990 SUB INP/OBS CARE 2/35MIN Diagnoses Acute respiratory failure with hypoxia and hypercapnia J96.01; J96.02 Hyponatremia E87.1 COVID-19 U07.1 Acute respiratory failure with hypoxia J96.01 Severe scoliosis M41.9 Restrictive ventilatory defect R94.2
[2024-07-22] MEDS ORDERED: REMDESIVIR 100 MG in SODIUM CHLORIDE 0.9% 230 ML IV SCH (12:00)
--- NOTE | 2024-07-22 13:01 | Hospitalist Progress Note ---
Date of Service July 22, 2024 Assessment & Plan (1) Acute respiratory failure with hypoxia and hypercapnia: Plan Pt is an 84-year-old male with past medical history significant for severe restrictive lung disease, Severe kyphoscoliosis, Obstructive lung disease, , postpolio syndrome, allergic rhinitis, hyperlipidemia, nocturnal hypoxemia(uses 2 liters oxygen while ambulating and while sleeping), hypertension, BPH, history of COVID-19 who presents with acute on chronic respiratory failure requiring BiPAP. He was also COVID-positive. Patient was having shortness of breath for 2 days. Took 1 dose of Paxlovid. Was very drowsy on admission. Patient having some CO2 retention, BiPAP settings requiring adjustment. Acute respiratory failure with hypoxia and hypercapnia Acute on chronic respiratory failure Sepsis COVID-19 infection Pt presenting tachycardic and tachypneic, likely pulmonary infectious source On home oxygen 2 L with ambulation and while sleeping History of Severe restrictive lung disease. Severe kyphoscoliosis Has COVID VBG noting CO2 retention Received nebs and decadron in ER Initially requiring BiPAP and admission to the ICU Continued with nebs [id number] and as needed IV Decadron, transitioned to po by pulm Remdesivir was started, has since been discontinued in the ICU Continue azithromycin Improved and has since been downgraded from the ICU Pulmonology consulted, appreciate recs -bipap qhs, nocturnal pulse ox testing needed for bipap at home, ordered -po dexamethasone -f/u with [facility] Continue to monitor Hyponatremia Sodium 126 on admission Serum osm 259 and urine osm 547 Received fluids in the ER Nephrology consulted, appreciate recs -SIADH - free fluid restriction of 1500 mL per day for treatment -no urea or salt tabs at this time -daily BMP Continue to monitor Improving Chronic Anemia iron Deficiency Anemia Hgb in 11 range AM anemia panel noting some iron deficiency Given IV Venofer 200 mg Continue to monitor Thrombocytopenia appears chronic We will follow labs Hypertension Home amlodipine and losartan on hold Continue terazosin Monitor BP Hyperlipidemia On rosuvastatin History of BPH On terazosin Monitor for urinary retention Nocturnal hypoxemia On oxygen nightly as above Diet: HH/FR 1500 DVT prophylaxis: Heparin subcu. Monitor platelets Dispo: PT/OT for further recs- recommending return home with home health services Admission and Anticipated Discharge Date Admission Date: July 21, 2024 Subjective patient was seen sitting up in bed Anxious for discharge asking about going home Discussion of his hyponatremia and need for follow-up with pulmonology Also needed evaluation by physical therapy Review of Systems Review of Systems: All systems reviewed & are unremarkable except as noted in Subjective Physical Exam Physical Exam: General: Alert, oriented. No acute distress Skin: No noted rashes or bruises MSK: pt with noted scoliosis Psych: Appropriate mood and affect Neuro: AAOx3 HEENT: NC/AT CV: RRR Resp: Breath sounds clear bilaterally, no increased effort of breathing Abdomen: Soft, nontender Extremities: No edema in lower extremities bilaterally. Results & Data Results & Data Vital Signs (Past 12 Hours) Vital Signs Temp Pulse Pulse Resp BP Pulse Ox Pulse Ox 07/22/24 11:36 36.8 C 07/22/24 11:30 162/78 H 07/22/24 11:27 105 H 18 95 07/22/24 11:01 96 07/22/24 09:30 92 H 07/22/24 09:30 07/22/24 08:30 150/71 H 07/22/24 08:24 36.1 C L 104 H 17 93 07/22/24 07:45 91 H 18 91 07/22/24 04:09 36.4 C L 76 23 96 07/22/24 03:29 67 20 95 07/22/24 03:06 36.5 C 68 20 94 07/22/24 02:00 36.7 C 69 20 95 07/22/24 01:27 123/65 07/22/24 01:27 123/65 07/22/24 01:06 36.5 C 81 20 96 O2 Del Method O2 Flow Rate O2 Flow Rate FiO2 07/22/24 11:36 07/22/24 11:30 07/22/24 11:27 Nasal Cannula 2 07/22/24 11:01 2 07/22/24 09:30 07/22/24 09:30 Nasal Cannula 2 07/22/24 08:30 07/22/24 08:24 Nasal Cannula 2 07/22/24 07:45 Room Air 07/22/24 04:09 07/22/24 03:29 28 07/22/24 03:06 07/22/24 02:00 07/22/24 01:27 07/22/24 01:27 07/22/24 01:06
[2024-07-22] MEDS ORDERED: FIRST - Mouthwash BLM 5 ML UDP PO PRN (16:42)
[2024-07-22] MEDS: SODIUM CHLORIDE 0.65% NA SOLN 45 ML (OCEAN) PRN (23:44)
[2024-07-23 05:13] LABS: Basophils # (auto) 0.01 K/uL (0.00-0.20); Basophils % (auto) 0.1 %; Eosinophils # (auto) 0.01 K/uL (0.00-0.50); Eosinophils % (auto) 0.1 %; Hematocrit (blood only) 37.3 % (42.0-52.0); Hemoglobin 12.2 g/dl (14.0-18.0); Immature Granulocytes # (auto) 0.06 K/uL (0.01-0.20); Immature Granulocytes % (auto) 0.5 %; Lymphocytes # (auto) 0.54 K/uL (1.20-3.40); Lymphocytes % (auto) 4.1 %; Mean Corpuscular Hemoglobin 25.6 pg (25.0-34.0); Mean Corpuscular Hgb Conc 32.7 g/dL (32.0-36.0); Mean Corpuscular Volume 78.2 fL (80.0-100.0); Mean Platelet Volume 9.5 fL (9.4-12.4); Monocytes # (auto) 0.93 K/uL (0.11-0.59); Neutrophils # (auto) 11.73 K/uL (1.40-6.50); Neutrophils % (auto) 88.2 %; Platelet Count 160 K/uL (130-400); RDW Coefficient of Variation 15.9 % (11.5-14.5); RDW Standard Deviation 45.3 fL (36.4-46.3); Red Blood Count 4.77 M/uL (4.70-6.10); White Blood Count 13.28 K/ul (4.8-10.8)
[2024-07-23 05:26] LABS: Albumin Globulin Ratio 1.7 (0.9-2); Albumin Level 3.8 gm/dl (3.4-5.0); Bilirubin,Total 0.5 mg/dl (0.2-1.0); Calcium 8.7 mg/dl (8.6-10.3); Creatinine Clr Calc Pharmacy 172.7 ml/min; Globulin 2.3 gm/dl (2.5-4.0); Phosphorus 2.3 mg/dl (2.5-4.9); Potassium 4.2 mmol/L (3.5-5.1); Total Protein 6.1 gm/dl (6.0-8.3)
[2024-07-23 05:27] LABS: iSTAT Allen Test Pass; iSTAT Art Bld Gas pCO2 Correct 45 mmHg (35-46); iSTAT Art Bld Gas pH Corrected 7.442 (7.35-7.45); iSTAT Arterial Blood Gas HCO3 31 meg/L (19-24); iSTAT Arterial Blood Gas pCO2 45 mmHg (35-46); iSTAT Arterial Blood Gas pH 7.44 (7.35-7.45); iSTAT Arterial Blood Gas pO2 67 mmHg (80-95); iSTAT Arterial Blood Gas pO2 C 67; iSTAT Carbon Dioxide 32 mmol/L (24-31); iSTAT Hematocrit 40 % (42-52); iSTAT Hemoglobin 13.6 g/dl (14.0-18.0); iSTAT Potassium 4.2 mmol/L (3.3-5.0); iSTAT Sample Type Arterial; iSTAT Site R Radial; iSTAT Sodium 131 mmol/L (135-144); iSTAT SpO2 90
[2024-07-23] MEDS: ALBUT/IPRATROP 3MG/0.5MG NEB 3 ML VIAL NEB PRN (07:23)
[2024-07-23] MEDS ORDERED: POTASSIUM PHOS 3 MMOL/1 ML INFUSION IV STA (08:04)
[2024-07-23] MEDS: ACETAMINOPHEN 500 MG TAB PO PRN (09:45)
[2024-07-23] MEDS: POTASSIUM PHOSPHATE 15 MMOL in SODIUM CHLORIDE 0.9% 250 ML IV ONE (09:45)
[2024-07-23] MEDS: dexAMETHasone 4 MG TAB PO SCH (09:46)
--- NOTE | 2024-07-23 10:44 | Pulmonology Progress Note ---
Date of Service July 23, 2024 Assessment & Plan (1) Acute respiratory failure with hypoxia and hypercapnia: (2) Hyponatremia: (3) COVID-19: (4) Acute respiratory failure with hypoxia: (5) Severe scoliosis: (6) Restrictive ventilatory defect: Plan Impression: 84 YOM with severe kyphoscoliosis due to postpolio who presents to the hospital with 2 day history of shortness of breath, found to have COVID 19 associated with worsening hypercarbic respiratory failure, requiring uptitration of BiPAP initially. He is significantly improved clinically. Recommendations: 1. 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 2. COVID pneumonitis: Oxygen requirement significantly improved. Would continue dexamethasone until hypoxemia is resolved. Okay to transition dexamethasone to oral. 3. Severe restrictive lung disease: Secondary to postpolio. No intervention acutely required. Continue supportive care. Patient is appears appropriate to dismiss from the hospital as long as oxygen can be set up at home for him if he needs it. Pulmonary will sign off. 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 Feel free to contact us with questions or concerns Admission and Anticipated Discharge Date Admission Date: July 21, 2024 Subjective Patient seen and examined. EMR reviewed. The patient reports he is feeling well and is anxious to be dismissed from the hospital. He completed an overnight oxygen study last night. 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 He denies any cough wheezing or significant shortness of breath. Minimal oxygen requirement currently Review of Systems 2 Review of Systems: All systems reviewed & are unremarkable except as noted in Subjective Physical Exam 2 Constitutional: well developed and well nourished; no acute distress Neck: trachea midline, no thyromegaly Respiratory: normal respiratory effort Auscultation: lungs clear to auscultation bilaterally and + diminished lung sounds Cardiovascular: RRR, no murmur, no edema Palpation: normal PMI; no thrill Gastrointestinal (Abdomen): normal bowel sounds, soft, nontender, no hepatosplenomegaly Musculoskeletal: no cyanosis or clubbing, extremities motor strength 5/5 H ead/Neck/Chest: + abnormal inspection of chest wall (Profound kyphoscoliosis) Skin: no rashes, warm and dry Psychiatric: A+Ox3, euthymic affect Lymphatic: no cervical or axillary lymphadenopathy Results & Data Results & Data Vital Signs (Past 12 Hours) Vital Signs Temp Pulse Pulse Pulse Resp BP Pulse Ox 07/23/24 10:00 103 H 24 93 07/23/24 09:56 174/83 H 07/23/24 09:51 106 H 35 H 92 07/23/24 09:00 115 H 31 H 92 07/23/24 08:00 36.7 C 114 H 35 H 92 07/23/24 07:30 168/86 H 07/23/24 07:23 91 H 18 94 07/23/24 07:15 79 26 H 95 07/23/24 06:00 102 H 25 H 07/23/24 05:00 100 H 19 89 L 07/23/24 04:03 100 H 17 89 L 07/23/24 04:00 36.7 C 07/23/24 03:33 99 H 17 89 L 07/23/24 03:30 155/80 H 07/23/24 03:30 155/80 H 07/23/24 03:03 117 H 07/23/24 02:51 124 H 25 H 87 L 07/23/24 02:06 91 H 15 91 07/23/24 01:06 125 H 37 H 88 L 07/23/24 00:05 36.6 C 07/23/24 00:03 105 H 25 H 88 L 07/22/24 23:45 106 H 07/22/24 23:31 175/107 H 07/22/24 23:30 105 H 32 H 91 Pulse Ox O2 Del Method O2 Del Method O2 Flow Rate O2 Flow Rate 07/23/24 10:00 Nasal Cannula 2 07/23/24 09:56 07/23/24 09:51 07/23/24 09:00 07/23/24 08:00 07/23/24 07:30 07/23/24 07:23 Nasal Cannula 2 07/23/24 07:15 07/23/24 06:00 07/23/24 05:00 07/23/24 04:03 07/23/24 04:00 07/23/24 03:33 07/23/24 03:30 07/23/24 03:30 07/23/24 03:03 89 L Nasal Cannula 2 07/23/24 02:51 07/23/24 02:06 07/23/24 01:06 07/23/24 00:05 07/23/24 00:03 07/22/24 23:45 07/22/24 23:31 07/22/24 23:30 Laboratory Results 07/23/24 04:31 07/23/24 04:31 Diagnostic Findings No new imaging Overnight oximetry performed last night showed an oxygen saturation anjum of 83% with the patient spending total of 13 minutes with an oxygen saturation below 88%. PG Care Time/CCT Total # of Minutes Spent Total Time Spent with Patient: Total time spent is greater than 50% in coordination of care (as documented) at patient's floor/unit and/or counseling patient: Coding Level of Care Code 08803 SUB INP/OBS CARE 2/35MIN Diagnoses Acute respiratory failure with hypoxia and hypercapnia J96.01; J96.02 Hyponatremia E87.1 COVID-19 U07.1 Acute respiratory failure with hypoxia J96.01 Severe scoliosis M41.9 Restrictive ventilatory defect R94.2
--- NOTE | 2024-07-23 10:59 | Discharge Summary ---
Discharge Summary Date of Service July 23, 2024 Principal Dx & Hospital Course #1 = Principal Diagnosis (1) Acute respiratory failure with hypoxia and hypercapnia: Plan Pt is an 84-year-old male with past medical history significant for severe restrictive lung disease, Severe kyphoscoliosis, Obstructive lung disease, , postpolio syndrome, allergic rhinitis, hyperlipidemia, nocturnal hypoxemia(uses 2 liters oxygen while ambulating and while sleeping), hypertension, BPH, history of COVID-19 who presents with acute on chronic respiratory failure requiring BiPAP. He was also COVID-positive. Patient was having shortness of breath for 2 days. Took 1 dose of Paxlovid. Was very drowsy on admission. Patient having some CO2 retention, BiPAP settings requiring adjustment. Acute respiratory failure with hypoxia and hypercapnia Acute on chronic respiratory failure Sepsis COVID-19 infection Pt presenting tachycardic and tachypneic, likely pulmonary infectious source On home oxygen 2 L with ambulation and while sleeping History of Severe restrictive lung disease. Severe kyphoscoliosis in stetting of polio Has COVID VBG noting CO2 retention Received nebs and decadron in ER Initially requiring BiPAP and admission to the ICU Continued with nebs [id number] and as needed IV Decadron, transitioned to po by pulm Remdesivir was started, has since been discontinued in the ICU Continue azithromycin Improved and has since been downgraded from the ICU Pulmonology consulted, appreciate recs. Recommended/stated the following on the day of discharge per: "Impression: 84 YOM with severe kyphoscoliosis due to postpolio who presents to the hospital with 2 day history of shortness of breath, found to have COVID 19 associated with worsening hypercarbic respiratory failure, requiring uptitration of BiPAP initially. He is significantly improved clinically. Recommendations: 1. Acute on chronic hypoxemic and respiratory: Recommend getting the case management and setting him up with BiPAP 10/5 nightly going home and he can follow-up in the outpatient setting with his [facility] project management director to determine whether or not polysomnography is required. 2. COVID pneumonitis: Oxygen requirement significantly improved. Would continue dexamethasone until hypoxemia is resolved. Okay to transition dexamethasone to oral. 3. Severe restrictive lung disease: Secondary to postpolio. No intervention acutely required. Continue supportive care." On the day of discharge patient was on room air. Discharged with continued oral dexamethasone as well as 2 more days of p.o. azithromycin. Advised to closely follow-up with his primary care provider as well as project management director after discharge. Prescription given for BiPAP use at home to case management. Case management arranging DME. Per patient's , he has oxygen at home for use given his chronic respiratory failure. Hyponatremia SIADH Sodium 126 on admission Serum osm 259 and urine osm 547 Received fluids in the ER Nephrology consulted, appreciate recs -SIADH - free fluid restriction of 1500 mL per day for treatment -no urea or salt tabs at this time Patient's sodium on the day of discharge was 131 Advised to closely follow-up with nephrology after discharge Chronic Anemia iron Deficiency Anemia Hgb in 11 range AM anemia panel noting some iron deficiency Given IV Venofer 200 mg consider daily iron tablet supplement after discharge. Thrombocytopenia appears chronic Platelets normal at 160,000 on discharge. Hypertension Home amlodipine and losartan on hold Continued terazosin Resume home antihypertensives on discharge Hyperlipidemia On rosuvastatin History of BPH On terazosin Monitor for urinary retention Nocturnal hypoxemia On oxygen nightly as above Notes For Next Care Provider Please ensure close followup with pulmonology and nephrology after discharge consider a daily iron tablet supplement for noted anemia. Medication Changes From Visit Per pulmonology azithromycin 250mg daily x 2 more days dexamethasone 6mg daily Admission HPI Per Admitting Provider 84-year-old male with past medical history significant for severe restrictive lung disease, Severe kyphoscoliosis, Obstructive lung disease, , postpolio syndrome, allergic rhinitis, hyperlipidemia, nocturnal hypoxemia, uses 2 liters oxygen while ambulating and while sleeping, hypertension, BPH, history of COVID- 19, presents with acute on chronic respiratory failure requiring BiPAP and COVID-positive. As per ER patient was having shortness of breath for 2 days. Took 1 dose of Paxlovid. Currently patient is very drowsy. Could not get any history from the patient. Could not able to reach the at this time. Patient having some CO2 retention , BiPAP settings were adjusted. He was febrile in the ER. Sodium 126. Respiratory bio fire positive for COVID. PAST MEDICAL HISTORY: As mentioned above. PAST SURGICAL HISTORY: Colonoscopy, biopsy, humerus fracture surgery, spinal fusion surgery. FAMILY HISTORY: Significant for father had lung cancer, brother has colon cancer, bypass surgery, Down syndrome;brother had throat cancer. SOCIAL HISTORY: , lives with his . Quit smoking in 1968, smoked 1 pack a day for 3 years. Alcohol, 1 or 2 glasses of wine daily. No drug use. Admission Exam Per Admitting Provider General- Very Drowsy Head- atraumatic Neck- , no JVD. Lungs- CTA b/l , bilateral rhonchi heard Heart- regular rhythm; no murmur, no gallop. Abdomen- normal bowel sounds, soft, no distension Extremities- no pretibial edema, no erytehma seen Neuro- very drowsy, opens eyes but goes to sleep quickly ,moves extremities to painful stimuli Discharge Exam General: Alert, oriented. No acute distress Skin: No noted rashes or bruises MSK: pt with noted scoliosis Psych: Appropriate mood and affect Neuro: AAOx3 HEENT: NC/AT CV: RRR Resp: Breath sounds clear bilaterally, no increased effort of breathing Abdomen: Soft, nontender Extremities: No edema in lower extremities bilaterally. Updated Medication List Medication Instructions Recorded Confirmed Type albuterol sulfate 90 mcg/actuation 2 puff inhalation Q4 PRN 06/22/22 07/20/24 History aerosol inhaler .cough/wheezing aspirin 81 mg chewable tablet 81 mg PO DAILY 06/22/22 07/20/24 History fluticasone furoate 100 1 inh inhalation QAM 06/22/22 07/20/24 History mcg-vilanterol 25 mcg/dose inhalation powder (Breo Ellipta) latanoprost 0.005 % eye drops 1 drp OPL HS 06/22/22 07/20/24 History meloxicam 15 mg tablet 15 mg PO QAM 06/22/22 07/20/24 History montelukast 10 mg tablet 10 mg PO QAM 06/22/22 07/20/24 History rosuvastatin 5 mg tablet 5 mg PO QPM 06/22/22 07/20/24 History telmisartan 40 mg tablet 40 mg PO DAILY 06/22/22 07/20/24 History terazosin 2 mg capsule 2 mg PO HS 06/22/22 07/20/24 History amlodipine 2.5 mg tablet 2.5 mg PO QAM 07/20/24 07/20/24 History ipratropium 0.5 mg-albuterol 3 mg 3 ml inhalation Q6 PRN wheezing or 07/20/24 07/20/24 History (2.5 mg base)/3 mL nebulization dyspnea soln azithromycin 250 mg tablet 250 mg PO DAILY #2 tabs 07/23/24 Rx dexamethasone 4 mg tablet 6 mg (1.5 x 4 mg) PO DAILY #45 tabs 07/23/24 Rx Hospital Stay Data Consultations 07/20/24 23:21 ED Decision to Admit Stat 07/21/24 02:46 Consult [employer] Routine 07/21/24 08:00 Consult Nephrology Routine Consult Pulmonology Routine Diagnostic Imagining Performed Chest X-Ray 07/20/24 21:06 Exam(s): XR CXR 1 VIEW EXAM: XR Chest, 1 View CLINICAL HISTORY: Reason for exam: Chest pain, nonspecific. TECHNIQUE: Frontal view of the chest. COMPARISON: 06/21/2022 FINDINGS: Lungs: See below. Pleural space: No pneumothorax. Heart: Unremarkable. No cardiomegaly. Mediastinum: Significant right hemithorax volume loss with left to right mediastinal shift. This is unchanged. No acute infiltrate. Trace left pleural effusion. Bones/joints: Unremarkable. No acute fracture. IMPRESSION: As above Electronically signed by: Benjamin Aguilar MD 07/20/24 23:38 PM Discharge Instructions Given to Patient (Per Discharging Provider) Ever, You presented with some trouble breathing. You were seen by the extrusion former/project management director. He recommends that you continue with BiPAP use at home. Case management has worked with you to help you get that at home. Consumer Marketing Specialist Dr. Turk also recommends that you continue with the oral dexamethasone until your need for oxygen resolves. Keep close follow-up with your project management director after discharge. We are also discharging you home with 2 more days of oral azithromycin. You can start taking that tomorrow. You are also seen by the supplier manager due to low sodium levels. He recommends that you continue to fluid restrict yourself to 1500 mL of fluids daily. Please keep close follow-up with the supplier manager after discharge. Your primary care provider can refer you to one if needed. Again please keep close follow up with your project management director, primary care provider and nephrology after discharge. Please do not hesitate to come back to the emergency room if your symptoms worsen or return. It was a pleasure taking care of you while you were here. Total Time Total Time Spent Total Time Spent (In Minutes): 65
[2024-07-23 12:02] VITALS: TEMP 97.9
[2024-07-23 12:05] VITALS: BP 157/81
[2024-07-23 15:24] VITALS: PULSE 90; RESP 19; O2SAT 97
== END 2024-07-23 16:45 | disposition home or self-care (01) | DRG 871 ==
LOC: ED 20:47 → 1E 07-21 01:39